=== PATIENT | female | born 1970 | race Caucasian/White ===

== ENCOUNTER 2022-04-24 17:51 | Outpatient (REF) | payer BC, SELFPAY ==
[2022-04-24 18:43] LABS: Influenza A PCR NEGATIVE (Negative); Influenza B PCR NEGATIVE (Negative); Resp Syncy Virus RNA Qual PCR NEGATIVE (Negative); SARS COV2 PCR INHOUSE NEGATIVE (Negative)
== END 2022-04-24 17:52 | disposition home or self-care (01) ==
LOC: HO.LNP 17:51
PROVIDERS: Visit Provider Emergency Medicine
DX: Z20.822 Contact with and (suspected) exposure to COVID-19 (principal); R68.89 Other general symptoms and signs
CPT/HCPCS: 0241U

== ENCOUNTER 2022-09-18 09:55 | Outpatient (REF) | payer BC, SELFPAY ==
[2022-09-18 11:26] LABS: MANUAL DIFF FLAG NO
[2022-09-18 11:38] LABS: Basophils Percent Auto 0.6 % (0-2); Eosinophils Absolute Auto 0.1 X10*3/uL (0.0-0.4); Hemoglobin 14.9 g/dl (12.0-16.0); Imm Gran Abs Auto 0.01 X10*3/uL (0.00-0.03); Imm Gran Pct Auto 0.2 % (0.0-0.4); Lymphocytes Absolute Auto 2.8 X10*3/uL (1.2-4.9); Lymphocytes Percent Auto 54.7 % (20-40); Mean Corpuscular HGB Conc 32.4 g/dl (31.0-35.0); Mean Corpuscular Hemoglobin 31.7 pg (27.0-33.0); Mean Corpuscular Volume 97.9 fL (80.0-98.0); Mean Platelet Volume 11.1 fL (9.4-12.3); Monocytes Absolute Auto 0.3 X10*3/uL (0.1-1.2); Monocytes Percent Auto 6.1 % (2-11); Neutrophils Absolute Auto 1.8 x10*3/uL (2.0-8.3); Neutrophils Percent Auto 36.4 % (45-73); Platelet Count 214 X10*3/uL (160-400); Red Cell Distribution Width 12.7 % (11.0-16.0); White Blood Count 5.1 X10*3/uL (4.8-10.8)
[2022-09-18 12:24] LABS: Alanine Aminotransferase 107 U/L (0-31); Albumin Level 4.5 g/dL (3.5-5.0); Alkaline Phosphatase 104 U/L (39-117); Anion Gap 12 (12-20); Aspartate Amino Transferase 44 U/L (5-31); Bilirubin Total 0.6 mg/dL (0.0-1.0); Blood Urea Nitrogen 14 mg/dL (9-16); Calcium 9.6 mg/dL (8.4-10.2); Carbon Dioxide 26 mmol/L (22-29); Chloride 105 mmol/L (96-108); Cholesterol 244 mg/dL; Estimated Glomerular Filt Rate > 60; Glucose Fasting 110 mg/dL (60-99); HDL Cholesterol 27 mg/dL; LDL Cholesterol Calculated 181 mg/dl; Potassium 4.5 mmol/L (3.3-5.1); Sodium 138 mmol/L (135-145); TSH reflex Free T4 30.54 uIU/mL (0.32-4.0); Total Protein 7.8 g/dL (6.5-8.0); Triglycerides 181 mg/dL; Vitamin B12 351 pg/mL (200-900)
[2022-09-18 12:56] LABS: Free T4 (Free Thyroxine) 0.62 ng/dL (0.71-1.85)
[2022-09-24 16:43] LABS: Vitamin D 25-OH, D2 <4 ng/mL; Vitamin D 25-OH, D3 18 ng/mL; Vitamin D 25-OH, Total 18 ng/mL (30-100)
== END 2022-09-18 09:56 | disposition home or self-care (01) ==
LOC: HO.HMGCLDS 09:55
PROVIDERS: PCP Internal Medicine; Visit Provider Internal Medicine
DX: K51.90 Ulcerative colitis, unspecified, without complications (principal); R53.83 Other fatigue; R03.0 Elevated blood-pressure reading, without diagnosis of hypertension
CPT/HCPCS: 36415; 80053; 80061; 82306; 82607; 84439; 84443; 85025

== ENCOUNTER 2022-12-11 08:59 | Outpatient (REF) | payer BC, SELFPAY ==
[2022-12-13 05:39] LABS: HPV mRNA E6/E7 rflx Not Detected (Not Detected)
== END 2022-12-11 09:00 | disposition home or self-care (01) ==
LOC: HO.LNP 08:59
PROVIDERS: PCP Internal Medicine; Visit Provider Obstetrics & Gynecology
DX: Z01.419 Encounter for gynecological examination (general) (routine) without abnormal findings (principal)
CPT/HCPCS: 87624; 88142

== ENCOUNTER 2023-03-26 09:53 | Outpatient (AMB) | payer BC, SELFPAY ==
[2023-03-26 09:55] VITALS: BP 122/90; PULSE 77; O2SAT 98; BMI 22.0
--- NOTE | 2023-03-26 09:55 | MHC.PC.OV ---
Vital Signs 03/26/23 09:55 Height 5 ft 8 in Weight 144 lb 8 oz BMI 22.0 BP 122/90 H Blood Pressure Location Rt brachial Position Sitting Pulse 77 Pulse Source Pulse Oximeter Pulse Oximetry (%) 98 Oxygen Delivery Method Room Air Intake Visit Reasons: follow up Allergies clindamycin [CLINDAMYCIN] Allergy (Unknown, Verified 03/26/23 09:56) RASH fluconazole [From Diflucan] Allergy (Unknown, Verified 03/26/23 09:56) HIVES NSAIDS (Non-Steroidal Anti-Inflamma [NSAIDS] Allergy (Unknown, Verified 03/26/23 09:56) EDEMA sulfamethoxazole [From BACTRIM] Allergy (Unknown, Verified 03/26/23 09:56) ITCHINESS tramadol [Tramadol] Allergy (Unknown, Verified 03/26/23 09:56) HEART RACES trimethoprim [From BACTRIM] Allergy (Unknown, Verified 03/26/23 09:56) ITCHINESS Ansaid Allergy (Unknown, Uncoded 01/06/23 10:16) Diarrhea Clindamycin HCl Allergy (Unknown, Uncoded 01/06/23 10:16) Rash From Toradol Adverse Reaction (Unknown, Uncoded 01/06/23 10:16) SLOWS HEART From Vicodin Adverse Reaction (Unknown, Uncoded 01/06/23 10:16) NAUSEAU Medication List - Last Reconciled 03/26/23 by Naina Garcias MD atorvastatin 40 mg PO DAILY cetirizine 10 mg PO DAILY PRN 30 days mczdbhtf-dssdxhhysp-vnbx-hops 515 mg caps PO L.acidop,rishi,lac,rha-B.lac,joseph 625 mg (10 billion cell) (Advanced Probiotic) caps PO levothyroxine 100 mcg PO DAILY Tobacco use date assessed: 03/26/23 Dental Screening Dental Screen Date: 03/26/23 Did you have a dental visit in the last 12 months?: No Did you have a dental problem in the last 6 months where you did not have access to dental care?: No Was dental information given to patient?: No HPI follow up HPI Details Patient is a 52-year-old female who was last seen September of this year Patient is on atorvastatin 40 mg for high LDL she is due for labs, she is tolerating medication , no side effects. However she does have baseline elevation of LFT it is very important that patient do the labs as soon as possible When she was seen last in September I told her to return in 2 months for follow-up but patient did not. She works at night Allergies a stable with long-acting antihistamine Patient is taking levothyroxine 100 mcg for hypothyroidism. Smoking 6 cigarettes a day patient is trying to cut down. Patient is to return in 4 months labs are needed as soon as possible. [facility] Medical History REJI III (cervical intraepithelial neoplasia grade III) with severe dysplasia High cholesterol Hx of LEEP (loop electrosurgical excision procedure) of cervix complicating Hypothyroid Surgical History History of back surgery Hx of appendectomy Hx of section Hx of hernia repair Hx of tubal ligation Family History Maternal Aunt Breast cancer Father Prostate cancer Social History Housing: House Patient Tobacco Use Status: Current everyday Tobacco user Cigarettes Per Day: 7 e-Cigarette/Vaping Use: Never Used service: No Current occupational status: employed Cognitive needs: No Hearing needs: No Vision needs: No Female Reproductive History Menstrual Age of Menarche: 15 Questionnaire Thrive Questionnaire Date Thrive assessed: 08/30/22 AUDIT C Alcohol Use Questionnaire (AUDIT-C) 1. How often do you have a drink containing alcohol?: Never 3. How often do you have six or more drinks on one occasion?: Never Total Score: 0 Score Reviewed/Action Taken: Yes ILYA-7 AMB Questionnaire ILYA-7 Date ILYA - 7 assessed: 08/30/22 Source: Developed by Drs. Otilio Cohn, Noemi Perez, Tej Smith and colleagues, with an educational julissa from [employer]. Review of Systems Const Denies chills and Denies fever(s) ENT Denies epistaxis and Denies nasal discharge Card Denies chest pain Resp Denies chest congestion, Denies cough and Denies hemoptysis GI Denies diarrhea and Denies nausea Skin/Breast Denies rash Neuro Reports no additional complaints Psych Reports no additional complaints Endo Reports no additional complaints Physical exam (Primary Care) Vital Signs: Last Vital Signs Pulse 77 03/26/23 09:55 BP 122/90 H 03/26/23 09:55 Pulse Ox 98 03/26/23 09:55 Oxygen Delivery Method Room Air 03/26/23 09:55 BMI result Body Mass Index 22.0 Tobacco/Smoking Status: Tobacco use Status Tobacco use date assessed 03/26/23 03/26/23 09:57 Patient Tobacco Use Status Current everyday Tobacco 03/26/23 09:57 e-Cigarette/Vaping Use Never Used 03/26/23 09:57 Thrive Assessment: Date of Thrive Assessment Date Thrive assessed 08/30/22 03/26/23 09:57 Const General: cooperative, comfortable and no acute distress Orientation/consciousness: patient oriented x3 HENMT Head: Yes normocephalic Eyes General: appearance normal, both eyes and all related structures Neck Neck: Yes supple Resp Effort & Inspection: normal respiratory effort, no cough and no stridor Cardio Rhythm: regular rhythm Heart sounds: S1 normal heart sound present and S2 normal heart sound present Skin General skin exam: turgor normal Neuro General: patient oriented x3, tone normal and moves all extremities Extrem Right lower extremity: no edema Left lower extremity: no edema Assessment and Plan Assessment & Plan (1) Lipid disorder: Code(s): E78.9 - Disorder of lipoprotein metabolism, unspecified (2) Impaired fasting blood sugar: Code(s): R73.01 - Impaired fasting glucose (3) LFT elevation: Code(s): R79.89 - Other specified abnormal findings of blood chemistry (4) Other specified hypothyroidism: Code(s): E03.8 - Other specified hypothyroidism Plan Patient is a 52-year-old female who was last seen September of this year Patient is on atorvastatin 40 mg for high LDL she is due for labs, she is tolerating medication , no side effects. However she does have baseline elevation of LFT it is very important that patient do the labs as soon as possible When she was seen last in September I told her to return in 2 months for follow-up but patient did not. She works at night Allergies a stable with long-acting antihistamine Patient is taking levothyroxine 100 mcg for hypothyroidism. Smoking 6 cigarettes a day patient is trying to cut down. Impaired fasting sugar: Patient says that she has started eating healthy and is mind for of her diet now Patient is to return in 4 months labs are needed as soon as possible. Orders: Orders Comprehensive [place]. Panel Fast Today E03.8 - Other specified hypothyroidism, E78.9 - Disorder of lipoprotein metabolism, unspecified, R73.01 - Impaired fasting glucose, R79.89 - Other specified abnormal findings of blood chemistry Hemoglobin A1c Today E03.8 - Other specified hypothyroidism, E78.9 - Disorder of lipoprotein metabolism, unspecified, R73.01 - Impaired fasting glucose, R79.89 - Other specified abnormal findings of blood chemistry Lipid Panel Today E03.8 - Other specified hypothyroidism, E78.9 - Disorder of lipoprotein metabolism, unspecified, R73.01 - Impaired fasting glucose, R79.89 - Other specified abnormal findings of blood chemistry TSH reflex Free T4 Today E03.8 - Other specified hypothyroidism, E78.9 - Disorder of lipoprotein metabolism, unspecified, R73.01 - Impaired fasting glucose, R79.89 - Other specified abnormal findings of blood chemistry Complete Blood Count Auto Diff Today E03.8 - Other specified hypothyroidism, E78.9 - Disorder of lipoprotein metabolism, unspecified, R73.01 - Impaired fasting glucose, R79.89 - Other specified abnormal findings of blood chemistry Medications: Discontinued benzonatate Discontinued Reason: Patient Completed Course 100 mg PO TID PRN 20 caps 0RF cough Coding Level of Care Code Est Pt Level 4 (89333) Diagnoses Lipid disorder E78.9 Impaired fasting blood sugar R73.01 LFT elevation R79.89 Other specified hypothyroidism E03.8
== END 2023-03-26 10:59 | disposition home or self-care (01) ==
PROVIDERS: PCP Internal Medicine; Visit Provider Internal Medicine
DX: E78.9 Disorder of lipoprotein metabolism, unspecified (principal); R73.01 Impaired fasting glucose; R79.89 Other specified abnormal findings of blood chemistry; E03.8 Other specified hypothyroidism
CPT/HCPCS: 99214

== ENCOUNTER 2023-04-23 09:37 | Outpatient (REF) | payer BC, SELFPAY ==
[2023-04-23 11:49] LABS: MANUAL DIFF FLAG NO
[2023-04-23 11:53] LABS: Basophils Absolute Auto 0.1 X10*3/uL (0.0-0.2); Basophils Percent Auto 0.8 % (0-2); Eosinophils Absolute Auto 0.2 X10*3/uL (0.0-0.4); Eosinophils Percent Auto 2.7 % (0-4); Hematocrit 44.2 % (37.0-47.0); Hemoglobin 14.7 g/dl (12.0-16.0); Imm Gran Abs Auto 0.01 X10*3/uL (0.00-0.03); Imm Gran Pct Auto 0.2 % (0.0-0.4); Lymphocytes Absolute Auto 2.6 X10*3/uL (1.2-4.9); Lymphocytes Percent Auto 43.8 % (20-40); Mean Corpuscular HGB Conc 33.3 g/dl (31.0-35.0); Mean Corpuscular Hemoglobin 31.7 pg (27.0-33.0); Mean Corpuscular Volume 95.3 fL (80.0-98.0); Mean Platelet Volume 11.1 fL (9.4-12.3); Monocytes Absolute Auto 0.3 X10*3/uL (0.1-1.2); Monocytes Percent Auto 5.5 % (2-11); Neutrophils Absolute Auto 2.8 x10*3/uL (2.0-8.3); Platelet Count 235 X10*3/uL (160-400); Red Blood Count 4.64 X10*6/uL (4.20-5.50); Red Cell Distribution Width 12.5 % (11.0-16.0)
[2023-04-23 12:09] LABS: Estimated Average Glucose 103 mg/dL; Hemoglobin A1c % 5.2 % (<6.0)
[2023-04-23 12:47] LABS: Alanine Aminotransferase 33 U/L (0-31); Albumin Level 4.3 g/dL (3.5-5.0); Alkaline Phosphatase 75 U/L (39-117); Anion Gap 11 (12-20); Aspartate Amino Transferase 26 U/L (5-31); Bilirubin Total 0.5 mg/dL (0.0-1.0); Blood Urea Nitrogen 12 mg/dL (9-16); Calcium 9.9 mg/dL (8.4-10.2); Carbon Dioxide 28 mmol/L (22-29); Chloride 106 mmol/L (96-108); Cholesterol 189 mg/dL (<200); Estimated Glomerular Filt Rate > 60; Glucose Fasting 93 mg/dL (60-99); HDL Cholesterol 31 mg/dL (>40); LDL Cholesterol Calculated 102 mg/dL (<100); Potassium 4.5 mmol/L (3.3-5.1); Sodium 140 mmol/L (135-145); Total Protein 7.2 g/dL (6.5-8.0); Triglycerides 284 mg/dL (<150)
[2023-04-23 12:53] LABS: TSH reflex Free T4 4.63 uIU/mL (0.32-4.0)
[2023-04-23 13:36] LABS: Free T4 (Free Thyroxine) 1.01 ng/dL (0.71-1.85)
== END 2023-04-23 09:38 | disposition home or self-care (01) ==
LOC: HO.HMGCLDS 09:37
PROVIDERS: PCP Internal Medicine; Visit Provider Internal Medicine
DX: E03.8 Other specified hypothyroidism (principal); R73.01 Impaired fasting glucose; R79.89 Other specified abnormal findings of blood chemistry; E78.9 Disorder of lipoprotein metabolism, unspecified
CPT/HCPCS: 36415; 80053; 80061; 83036; 84439; 84443; 85025

== ENCOUNTER 2023-07-23 12:05 | Outpatient (AMB) | payer BC, SELFPAY ==
--- NOTE | 2023-07-23 12:08 | MHC.PC.OV ---
Vital Signs 07/23/23 12:09 Height 5 ft 8 in Weight 147 lb BMI 22.3 BP 128/86 Blood Pressure Location Lt brachial Position Sitting Pulse 79 Pulse Source Pulse Oximeter Pulse Oximetry (%) 95 Oxygen Delivery Method Room Air Intake Visit Reasons: 4M Follow up, rescheduled from 07/18 Allergies clindamycin [CLINDAMYCIN] Allergy (Unknown, Verified 07/23/23 12:09) RASH fluconazole [From Diflucan] Allergy (Unknown, Verified 07/23/23 12:09) HIVES NSAIDS (Non-Steroidal Anti-Inflamma [NSAIDS] Allergy (Unknown, Verified 07/23/23 12:09) EDEMA sulfamethoxazole [From BACTRIM] Allergy (Unknown, Verified 07/23/23 12:09) ITCHINESS tramadol [Tramadol] Allergy (Unknown, Verified 07/23/23 12:09) HEART RACES trimethoprim [From BACTRIM] Allergy (Unknown, Verified 07/23/23 12:09) ITCHINESS Ansaid Allergy (Unknown, Uncoded 01/06/23 10:16) Diarrhea Clindamycin HCl Allergy (Unknown, Uncoded 01/06/23 10:16) Rash From Toradol Adverse Reaction (Unknown, Uncoded 01/06/23 10:16) SLOWS HEART From Vicodin Adverse Reaction (Unknown, Uncoded 01/06/23 10:16) NAUSEAU Medication List - Last Reconciled 07/23/23 by Naina Garcias MD atorvastatin 40 mg PO DAILY cetirizine 10 mg PO DAILY PRN 30 days jbjoegvo-hmbeivptec-hcmp-hops 515 mg caps PO L.acidop,rishi,lac,rha-B.lac,joseph 625 mg (10 billion cell) (Advanced Probiotic) caps PO levothyroxine 125 mcg PO DAILY Tobacco use date assessed: 07/23/23 Dental Screening Dental Screen Date: 07/23/23 Did you have a dental visit in the last 12 months?: No Did you have a dental problem in the last 6 months where you did not have access to dental care?: No Was dental information given to patient?: Patient has dentist HPI 4M Follow up, rescheduled from 07/18 HPI Details Patient is a 52-year-old female came in for her regular follow-up appointment Patient is on atorvastatin 40 mg for high LDL she is due for labs, she is tolerating medication , no side effects. Slightly elevated 1 liver enzyme, we will continue to monitor Continued to have sinus congestion, she is taking Sudafed We talked about it it is not a good idea to take Sudafed for long-term decongestion Instead she should take Flonase nasal spray Patient is also on long-acting antihistamine Patient is taking levothyroxine 125 mcg for hypothyroidism. Due for TSH check Smoking 2 packs per week Impaired fasting sugar: Patient is eating healthy Follow-up 4 months [facility] Medical History REJI III (cervical intraepithelial neoplasia grade III) with severe dysplasia Hx of LEEP (loop electrosurgical excision procedure) of cervix complicating Hypothyroid High cholesterol Surgical History Hx of tubal ligation Hx of hernia repair History of back surgery Hx of appendectomy Hx of section Family History Maternal Aunt Breast cancer Father Prostate cancer Social History Housing: House Patient Tobacco Use Status: Current everyday Tobacco user Cigarettes Per Day: 2 e-Cigarette/Vaping Use: Never Used service: No Current occupational status: employed Cognitive needs: No Hearing needs: No Vision needs: No Female Reproductive History Menstrual Age of Menarche: 15 Questionnaire Thrive Questionnaire Date Thrive assessed: 08/30/22 AUDIT C Alcohol Use Questionnaire (AUDIT-C) 1. How often do you have a drink containing alcohol?: Never 3. How often do you have six or more drinks on one occasion?: Never Total Score: 0 Score Reviewed/Action Taken: Yes ILYA-7 AMB Questionnaire ILYA-7 Date ILYA - 7 assessed: 08/30/22 Source: Developed by Drs. Otilio Cohn, Noemi Perez, Tej Smith and colleagues, with an educational julissa from [employer]. Review of Systems Const Denies chills and Denies fever(s) ENT Denies epistaxis and Denies nasal discharge Card Denies chest pain Resp Denies chest congestion, Denies cough and Denies hemoptysis GI Denies diarrhea and Denies nausea Skin/Breast Denies rash Neuro Reports no additional complaints Psych Reports no additional complaints Endo Reports no additional complaints Physical exam (Primary Care) Vital Signs: Last Vital Signs Pulse 79 07/23/23 12:09 BP 128/86 07/23/23 12:09 Pulse Ox 95 07/23/23 12:09 Oxygen Delivery Method Room Air 07/23/23 12:09 BMI result Body Mass Index 22.3 Tobacco/Smoking Status: Tobacco use Status Tobacco use date assessed 07/23/23 07/23/23 12:11 Patient Tobacco Use Status Current everyday Tobacco 07/23/23 12:11 e-Cigarette/Vaping Use Never Used 07/23/23 12:11 Are you ready to quit: Yes Tobacco cessation counseling provided: Yes Items discussed: Other (Continue quitting number of cigarettes daily) Thrive Assessment: Date of Thrive Assessment Date Thrive assessed 08/30/22 07/23/23 12:11 Const General: cooperative, comfortable and no acute distress Orientation/consciousness: patient oriented x3 HENMT Head: Yes normocephalic Eyes General: appearance normal, both eyes and all related structures Neck Neck: Yes supple Resp Effort & Inspection: normal respiratory effort, no cough and no stridor Cardio Rhythm: regular rhythm Heart sounds: S1 normal heart sound present and S2 normal heart sound present Skin General skin exam: turgor normal Neuro General: patient oriented x3, tone normal and moves all extremities Extrem Right lower extremity: no edema Left lower extremity: no edema Assessment and Plan Assessment & Plan (1) Other specified hypothyroidism: Code(s): E03.8 - Other specified hypothyroidism (2) Lipid disorder: Code(s): E78.9 - Disorder of lipoprotein metabolism, unspecified (3) LFT elevation: Code(s): R79.89 - Other specified abnormal findings of blood chemistry (4) Impaired fasting blood sugar: Code(s): R73.01 - Impaired fasting glucose (5) Nicotine dependence: Code(s): F17.200 - Nicotine dependence, unspecified, uncomplicated Qualifiers: Nicotine product type: cigarettes Substance use status: uncomplicated Qualified Code(s): F17.210 - Nicotine dependence, cigarettes, uncomplicated Plan Patient is a 52-year-old female came in for her regular follow-up appointment Patient is on atorvastatin 40 mg for high LDL she is due for labs, she is tolerating medication , no side effects. Slightly elevated 1 liver enzyme, we will continue to monitor Continued to have sinus congestion, she is taking Sudafed We talked about it it is not a good idea to take Sudafed for long-term decongestion Instead she should take Flonase nasal spray Patient is also on long-acting antihistamine Patient is taking levothyroxine 125 mcg for hypothyroidism. Due for TSH check Smoking 2 packs per week Impaired fasting sugar: Patient is eating healthy Follow-up 4 months Orders: Orders Complete Blood Count Auto Diff Today E03.8 - Other specified hypothyroidism, E78.9 - Disorder of lipoprotein metabolism, unspecified, R73.01 - Impaired fasting glucose, R79.89 - Other specified abnormal findings of blood chemistry LDL Cholesterol Direct Today E03.8 - Other specified hypothyroidism, E78.9 - Disorder of lipoprotein metabolism, unspecified, R73.01 - Impaired fasting glucose, R79.89 - Other specified abnormal findings of blood chemistry TSH reflex Free T4 Today E03.8 - Other specified hypothyroidism, E78.9 - Disorder of lipoprotein metabolism, unspecified, R73.01 - Impaired fasting glucose, R79.89 - Other specified abnormal findings of blood chemistry Comprehensive Met. Panel Today E03.8 - Other specified hypothyroidism, E78.9 - Disorder of lipoprotein metabolism, unspecified, R73.01 - Impaired fasting glucose, R79.89 - Other specified abnormal findings of blood chemistry Medications: Refilled atorvastatin 40 mg PO DAILY 90 tabs 1RF levothyroxine 125 mcg PO DAILY 90 tabs 1RF cetirizine 10 mg PO DAILY PRN 30 tabs 1RF allergy symptoms 30 days Coding Level of Care Code Est Pt Level 4 (66010) Diagnoses Other specified hypothyroidism E03.8 Lipid disorder E78.9 LFT elevation R79.89 Impaired fasting blood sugar R73.01 Cigarette nicotine dependence without complication F17.210 Nicotine product type: cigarettes Substance use status: uncomplicated
[2023-07-23 12:09] VITALS: BP 128/86; PULSE 79; O2SAT 95; BMI 22.3
== END 2023-07-23 15:43 | disposition home or self-care (01) ==
PROVIDERS: PCP Internal Medicine; Visit Provider Internal Medicine
DX: E03.8 Other specified hypothyroidism (principal); E78.9 Disorder of lipoprotein metabolism, unspecified; R79.89 Other specified abnormal findings of blood chemistry; R73.01 Impaired fasting glucose; F17.210 Nicotine dependence, cigarettes, uncomplicated
CPT/HCPCS: 99214

== ENCOUNTER 2023-07-23 12:34 | Outpatient (REF) | payer BC, SELFPAY ==
[2023-07-23 16:09] LABS: MANUAL DIFF FLAG NO
[2023-07-23 16:22] LABS: Basophils Percent Auto 0.8 % (0-2); Eosinophils Absolute Auto 0.2 X10*3/uL (0.0-0.4); Eosinophils Percent Auto 3.6 % (0-4); Hematocrit 42.2 % (37.0-47.0); Imm Gran Abs Auto 0.01 X10*3/uL (0.00-0.03); Imm Gran Pct Auto 0.2 % (0.0-0.4); Lymphocytes Absolute Auto 2.3 X10*3/uL (1.2-4.9); Lymphocytes Percent Auto 44.8 % (20-40); Mean Corpuscular HGB Conc 33.2 g/dl (31.0-35.0); Mean Corpuscular Hemoglobin 31.2 pg (27.0-33.0); Mean Platelet Volume 11.3 fL (9.4-12.3); Monocytes Absolute Auto 0.3 X10*3/uL (0.1-1.2); Monocytes Percent Auto 5.8 % (2-11); Neutrophils Absolute Auto 2.3 x10*3/uL (2.0-8.3); Neutrophils Percent Auto 44.8 % (45-73); Platelet Count 227 X10*3/uL (160-400); Red Blood Count 4.49 X10*6/uL (4.20-5.50); Red Cell Distribution Width 11.9 % (11.0-16.0)
[2023-07-23 16:36] LABS: Alanine Aminotransferase 32 U/L (0-31); Albumin Level 4.6 g/dL (3.5-5.0); Alkaline Phosphatase 76 U/L (39-117); Anion Gap 11 (12-20); Aspartate Amino Transferase 22 U/L (5-31); Bilirubin Total 0.5 mg/dL (0.0-1.0); Blood Urea Nitrogen 16 mg/dL (9-16); Calcium 9.9 mg/dL (8.4-10.2); Carbon Dioxide 26 mmol/L (22-29); Chloride 105 mmol/L (96-108); Estimated Glomerular Filt Rate > 60; Glucose Random 102 mg/dL (60-115); Potassium 4.6 mmol/L (3.3-5.1); Sodium 137 mmol/L (135-145); Total Protein 8.1 g/dL (6.5-8.0)
[2023-07-23 16:54] LABS: TSH reflex Free T4 0.67 uIU/mL (0.32-4.0)
[2023-07-27 03:33] LABS: LDL Cholesterol Direct 69 mg/dL (<100)
== END 2023-07-23 12:35 | disposition home or self-care (01) ==
LOC: HO.HMGCLDS 12:34
PROVIDERS: PCP Internal Medicine; Visit Provider Internal Medicine
DX: R79.89 Other specified abnormal findings of blood chemistry (principal); E78.9 Disorder of lipoprotein metabolism, unspecified; R73.01 Impaired fasting glucose; E03.8 Other specified hypothyroidism
CPT/HCPCS: 36415; 80053; 83721; 84443; 85025

== ENCOUNTER 2024-01-03 11:43 | Outpatient (AMB) | payer BC, SELFPAY ==
[2024-01-03 14:18] VITALS: BP 102/76; PULSE 68; TEMP 36.6; O2SAT 99; BMI 21.7
--- NOTE | 2024-01-03 14:18 | MHC.OFFWIV ---
Intake Vital Signs 01/03/24 14:18 Height 5 ft 8 in Weight 143 lb BMI 21.7 BP 102/76 Blood Pressure Location Lt brachial Position Sitting Pulse 68 Pulse Source Pulse Oximeter Temp 97.9 F Temp Source Oral Pulse Oximetry (%) 99 Oxygen Delivery Method Room Air Intake Visit Reasons: EP severe abd/back mass seen coming out of vagina Intake Note: Pt is here today c/o severe lower back pain and abd pain Patient Tobacco Use Status: Current everyday Tobacco user Allergies clindamycin [CLINDAMYCIN] Allergy (Unknown, Verified 01/03/24 16:02) RASH fluconazole [From Diflucan] Allergy (Unknown, Verified 01/03/24 16:02) HIVES NSAIDS (Non-Steroidal Anti-Inflamma [NSAIDS] Allergy (Unknown, Verified 01/03/24 16:02) EDEMA sulfamethoxazole [From BACTRIM] Allergy (Unknown, Verified 01/03/24 16:02) ITCHINESS tramadol [Tramadol] Allergy (Unknown, Verified 01/03/24 16:02) HEART RACES trimethoprim [From BACTRIM] Allergy (Unknown, Verified 01/03/24 16:02) ITCHINESS Ansaid Allergy (Unknown, Uncoded 01/03/24 14:24) Diarrhea Clindamycin HCl Allergy (Unknown, Uncoded 01/03/24 14:24) Rash From Toradol Adverse Reaction (Unknown, Uncoded 01/03/24 14:24) SLOWS HEART From Vicodin Adverse Reaction (Unknown, Uncoded 01/03/24 14:24) NAUSEAU HPI EP severe abd/back mass seen coming out of vagina HPI Details Patient is a 53-year-old female who comes to the walk-in clinic complaining of severe lower abdominal and low back pain for the last week or so, that radiates down into her pelvis and vaginal area. 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 She reports that there was no one specific moment where she felt the pain worsening, however lifting has severely aggravated her symptoms. She does have a history of hernia repair, tubal ligation, spine surgery, and section, but reports no residual or recent issues prior to this past week, and no GI history reported. She had seen [facility] last year with no issues, coming up on her annual exam date next month. She reports no intercourse in the last 2 years, and no STD history. She has no vaginal discharge or bleeding. She reports associated anorexia as she feels to be in too much pain to eat well, and has difficulty sleeping due to the pain, especially last night as the pain severity has been escalating. She reports no fever or chills, weakness or dizziness, nausea vomiting or diarrhea, respiratory symptoms, dysuria or other urinary symptoms, myalgias or malaise or other significant associated symptoms. [facility] Medical History REJI III (cervical intraepithelial neoplasia grade III) with severe dysplasia Hx of LEEP (loop electrosurgical excision procedure) of cervix complicating Hypothyroid High cholesterol Surgical History Hx of tubal ligation Hx of hernia repair History of back surgery Hx of appendectomy Hx of section Family History Maternal Aunt Breast cancer Father Prostate cancer Social History Housing: House Patient Tobacco Use Status: Current everyday Tobacco user Cigarettes Per Day: 2 e-Cigarette/Vaping Use: Never Used Advance Directives: No Advance Directives Information Provided: Yes Do you have a plan to hurt others: No Plan service: No Current occupational status: employed Cognitive needs: No Hearing needs: No Vision needs: No Female Reproductive History Menstrual Age of Menarche: 15 Review of Systems Const All systems reviewed & are unremarkable except as noted in HPI and below Physical Exam Vital Signs: Last Vital Signs Temp 97.9 F 01/03/24 14:18 Pulse 68 01/03/24 14:18 BP 102/76 01/03/24 14:18 Pulse Ox 99 01/03/24 14:18 Oxygen Delivery Method Room Air 01/03/24 14:18 BMI result Body Mass Index 21.7 Results AMB Urinalysis, Automated UA Leukoctes 0 Zana/uL Last Edit by Kirsty Astudillo CMA on 01/03/24 14:47 UA Nitrite Negative Last Edit by Kirsty Astudillo CMA on 01/03/24 14:47 UA Urobilinogen 0.2 mg/dL Last Edit by Kirsty Astudillo CMA on 01/03/24 14:47 UA Protein 0 mg/dL Last Edit by Kirsty Astudillo CMA on 01/03/24 14:47 UA pH 6.0 Last Edit by Kirsty Astudillo CMA on 01/03/24 14:47 UA Blood 0 Erik/uL Last Edit by Kirsty Astudillo, DANIELA on 01/03/24 14:47 UA Specific [place] 1.010 Last Edit by Kirsty Astudillo, DANIELA on 01/03/24 14:47 UA Ketone Negative Last Edit by Kirsty Astudillo, DANIELA on 01/03/24 14:47 UA Bilirubin 0 mg/dL Last Edit by Kirsty Astudillo CMA on 01/03/24 14:47 UA Glucose 0 mg/dL Last Edit by Kirsty Astudillo CMA on 01/03/24 14:47 Results Reviewed Results Reviewed: Laboratory Last Values Urine pH (Auto) 6.0 01/03/24 14:29 Specific [place] (Auto) 1.010 01/03/24 14:29 Urine Protein (Auto) 0 mg/dL 01/03/24 14:29 Glucose (UA)(Auto) 0 mg/dL 01/03/24 14:29 Urine Ketones (Auto) Negative 01/03/24 14:29 Urine Blood (Auto) 0 Erik/uL 01/03/24 14:29 Urine Nitrite (Auto) Negative 01/03/24 14:29 Urine Bilirubin (Auto) 0 mg/dL 01/03/24 14:29 Urine Urobilinogen (Auto) 0.2 mg/dL 01/03/24 14:29 Leukocyte Esterase (Auto) 0 Zana/uL 01/03/24 14:29 Unremarkable urinalysis Assessment & Plan Assessment & Plan (1) Abdominal pain: Code(s): R10.9 - Unspecified abdominal pain Qualifiers: Abdominal location: lower abdomen, unspecified Qualified Code(s): R10.30 - Lower abdominal pain, unspecified Plan: Patient is 53-year-old female who comes to the walk-in clinic complaining of severe lower abdominal and back pain that radiates into her pelvis and vaginal area. On evaluation, patient was in moderate to severe apparent distress and was extremely restless, with frequent position changes. While her abdomen had generalized lower tenderness, and was soft and without rigidity or distention or guarding, she had a mildly gaping introitus, with her cervix visible just past the labia and she was exquisitely tender to the touch surrounding the cervix, which was not friable and did not have any lesions apparent. It was apparent that she had pelvic floor collapse, and acute pelvic organ prolapse. We discussed that I did not feel that I could adequately evaluate her at the emergency department, and that I could not manage her pain outpatient, and that she was possibly a candidate for a CT scan of the abdomen which could not be ordered through the walk-in. I told her that the safest option would be to go to the emergency department for further evaluation and management of her pain, and that if this was indeed a surgical issue, that they could determine that there. She was amenable to this, and expect was called in to [facility] per her request. Orders: Orders AMB Urinalysis Automated Today Z13.9 - Encounter for screening, unspecified Coding Level of Care Code Est Pt Level 4 (40826) Diagnoses Lower abdominal pain R10.30 Abdominal location: lower abdomen, unspecified
== END 2024-01-03 15:36 | disposition home or self-care (01) ==
PROVIDERS: PCP Internal Medicine; Visit Provider Physician Assistant Medical
DX: R10.30 Lower abdominal pain, unspecified (principal)
CPT/HCPCS: 81003; 99214

== ENCOUNTER 2024-01-03 15:54 | Emergency (ER) | payer BC, SELFPAY ==
--- NOTE | ~2024-01-03 | CT_ITS ---
EXAMINATION: CT ABDOMEN AND PELVIS WITH CONTRAST CLINICAL INFORMATION: Lower abdominal pain COMPARISON: CT abdomen and pelvis 01/29/2018. TECHNIQUE: Multidetector volumetric images were obtained from the superior aspect of the liver through the pubic symphysis following administration 85 mL of Omnipaque 350 intravenous contrast. Sagittal and coronal reformatted images were obtained on the technologist's workstation. Oral contrast: No This CT examination was performed using dose optimization techniques as appropriate, variously including the following: *Automated exposure control *Adjustment of mA and/or kV according to patient size (this includes techniques or standardized protocols for targeted exams where dose is matched to indication/reason for exam; i.e. extremities or head) *Use of iterative reconstruction technique DLP: 406 mGy-cm FINDINGS: LUNG BASES: Unremarkable. LIVER AND BILIARY TREE: Unremarkable. GALLBLADDER: Unremarkable. PANCREAS: Unremarkable. SPLEEN: Unremarkable. ADRENAL GLANDS: Unremarkable. KIDNEYS AND URETERS: Bilateral renal scattered subcentimeter hypoattenuating lesions, too small to characterize but statistically likely to represent benign cysts for which no follow-up imaging is recommended. No hydronephrosis. GASTROINTESTINAL TRACT: Tiny esophageal hiatal hernia. Mild scattered sigmoid predominant colonic diverticulosis without evidence of acute diverticulitis. Surgical clips along the right paracolic gutter, likely related to prior appendectomy. VASCULAR: Mild aortoiliac calcific atherosclerosis. LYMPH NODES: No lymphadenopathy. PERITONEUM: Unremarkable BLADDER: Unremarkable. PELVIC VISCERA: Unremarkable. ABDOMINAL AND PELVIC WALL: Fat-containing umbilical hernia, with hernia sac measuring 3.8 x 3.5 x 3.5 cm. Tiny fat-containing left inguinal hernia. OSSEOUS STRUCTURES: Unremarkable. CT/CT abdomen pelvis w IV con IMPRESSION: 1. No acute abnormality of the abdomen or pelvis or findings to explain lower abdominal pain. 2. Fat-containing umbilical and left inguinal hernias.
[2024-01-03 15:58] VITALS: BP 141/93; PULSE 95; RESP 20; TEMP 36.1; O2SAT 98; BMI 22.9
--- NOTE | 2024-01-03 16:14 | ED_ITS ---
HPI - Abdominal Pain General Chief Complaint: Abdominal Pain Stated Complaint: Abdominal pain Time Seen by Provider: 01/04/24 03:43 History of Present Illness ED Provider: REHMAN Related Data Home Medications ?Medication ?Instructions ?Recorded ?Confirmed L.acidop,casei,lactis,rham-B.lact,joseph cap PO 12/11/22 07/23/23 625 mg (10 billion cell) capsule (Advanced Probiotic) collagen-hyaluronic cap PO 12/11/22 07/23/23 loed-bhvzjzdykr-ylci extract 515 mg capsule Previous Rx's ?Medication ?Instructions ?Recorded atorvastatin 40 mg tablet 40 mg PO DAILY #90 tabs 07/23/23 levothyroxine 125 mcg tablet 125 mcg PO DAILY #90 tabs 07/23/23 cetirizine 10 mg tablet 10 mg PO DAILY PRN allergy 09/25/23 symptoms 30 days #30 tabs nitrofurantoin 100 mg PO BID 7 days #14 caps 01/04/24 monohydrate/macrocrystals 100 mg capsule (Macrobid) Allergies Allergy/AdvReac Type Severity Reaction Status Date / Time clindamycin [CLINDAMYCIN] Allergy Unknown RASH Verified 01/03/24 16:02 fluconazole [From Diflucan] Allergy Unknown HIVES Verified 01/03/24 16:02 NSAIDS (Non-Steroidal Allergy Unknown EDEMA Verified 01/03/24 16:02 Anti-Inflamma [NSAIDS] sulfamethoxazole Allergy Unknown ITCHINESS Verified 01/03/24 16:02 [From BACTRIM] tramadol [Tramadol] Allergy Unknown HEART RACES Verified 01/03/24 16:02 trimethoprim [From BACTRIM] Allergy Unknown ITCHINESS Verified 01/03/24 16:02 Ansaid Allergy Unknown Diarrhea Uncoded 01/03/24 14:24 Clindamycin HCl Allergy Unknown Rash Uncoded 01/03/24 14:24 From Toradol AdvReac Unknown SLOWS HEART Uncoded 01/03/24 14:24 From Vicodin AdvReac Unknown NAUSEAU Uncoded 01/03/24 14:24 PMFSH Past Medical History Medical History REJI III (cervical intraepithelial neoplasia grade III) with severe dysplasia Hx of LEEP (loop electrosurgical excision procedure) of cervix complicating Hypothyroid High cholesterol Surgical History Hx of tubal ligation Hx of hernia repair History of back surgery Hx of appendectomy Hx of section Family History Family History Maternal Aunt Breast cancer Father Prostate cancer Social History Social History Housing: House Patient Tobacco Use Status: Current everyday Tobacco user Cigarettes Per Day: 2 e-Cigarette/Vaping Use: Never Used Advance Directives: No Advance Directives Information Provided: Yes Do you have a plan to hurt others: No Plan service: No Current occupational status: employed Cognitive needs: No Hearing needs: No Vision needs: No Physical Exam ED Vital Signs: Vital Signs - 24 hr 01/04/24 07:59 Temperature 97.6 F Pulse Rate 67 Respiratory Rate 18 Blood Pressure 121/76 Pulse Oximetry 97 Oxygen Delivery Method Room Air BMI result Body Mass Index 22.9 Course Course Course Narrative: This is a rapid medical exam. Deferred additional HPI, ROS, PE to primary provider. 53 yo female here with abdominal pain, back pain from UC, Will obtain labs, UA VSS -Donna Valdovinos APRN Reevaluation(s) Reevaluation #1: took over care at 722am - follow up CT scan - labs and CT scan reassuring, VS stable can be DC home no acute pathology Medical Decision Making Lab Data 01/03/24 16:31 01/03/24 16:31 Labs: Lab Results 01/03/24 01/04/24 Range/Units 16:31 04:57 WBC 6.3 (4.8-10.8) X10*3/uL RBC 4.65 (4.20-5.50) X10*6/uL Hgb 14.2 (12.0-16.0) g/dl Hct 42.0 (37.0-47.0) % MCV 90.3 (80.0-98.0) fL MCH 30.5 (27.0-33.0) pg MCHC 33.8 (31.0-35.0) g/dl RDW 12.5 (11.0-16.0) % Plt Count 218 (160-400) X10*3/uL MPV 10.0 (9.4-12.3) fL Immature Gran % (Auto) 0.2 (0.0-0.4) % Neut % (Auto) 44.2 L (45-73) % Lymph % (Auto) 46.8 H (20-40) % [place] % (Auto) 6.1 (2-11) % Eos % (Auto) 2.2 (0-4) % Baso % (Auto) 0.5 (0-2) % Lymph # (Auto) 2.9 (1.2-4.9) X10*3/uL [place] # (Auto) 0.4 (0.1-1.2) X10*3/uL Eos # (Auto) 0.1 (0.0-0.4) X10*3/uL Baso # (Auto) 0.0 (0.0-0.2) X10*3/uL Abs Immat Gran (auto) 0.01 (0.00-0.03) X10*3/uL Absolute Neuts (auto) 2.8 (2.0-8.3) x10*3/uL Absolute Nucleated RBC 0.000 (0.0-0.012) X10*3/uL Nucleated RBC % (auto) 0.0 (0.0-0.2) /100WBC Sodium 139 (135-145) mmol/L Potassium 4.4 (3.3-5.1) mmol/L Chloride 105 (96-108) mmol/L Carbon Dioxide 24 (22-29) mmol/L Anion Gap 14 (12-20) BUN 16 (9-16) mg/dL Creatinine 0.78 (0.5-1.4) mg/dL Estim Creat Clear Calc 76.2 Estimated GFR > 60 Random Glucose 100 (60-115) mg/dL Calcium 9.7 (8.4-10.2) mg/dL Total Bilirubin 0.5 (0.0-1.0) mg/dL Direct Bilirubin 0.2 (0.0-0.5) mg/dL AST 21 (5-31) U/L ALT 31 (0-31) U/L Alkaline Phosphatase 84 (39-117) U/L Total Protein 8.2 H (6.5-8.0) g/dL Albumin 4.7 (3.5-5.0) g/dL Urine Color Yellow Urine Appearance Clear Urine pH 6.0 (5.0-9.0) Ur Specific [place] 1.015 (1.005-1.025) Urine Protein Negative (Neg-Trace) mg/dL Urine Glucose (UA) Negative (Negative) mg/dL Urine Ketones Negative (Negative) mg/dL Urine Blood Negative (Negative) Urine Nitrite Negative (Negative) Ur Leukocyte Esterase Small (1+) H (Negative) Urine RBC 0-2 (0-2) /HPF Urine WBC 6-10 H (0-5) /HPF Ur Squamous Epith Cells 0-2 (0-2) /HPF Urine Bacteria None Seen (None Seen) Hyaline Casts 0-2 (0-2) /LPF Medications Administered Discontinued Medications Generic Name Dose Route Start Last Admin Trade Name Freq PRN Reason Stop Dose Admin Iohexol 85 ml 01/04/24 06:30 01/04/24 06:30 Iohexol 350 Mg/Ml 100 Ml Infus..Btl IV 01/04/24 06:31 85 ml ONCE ONE Administration Discharge Plan Discharge Clinical Impression: Abdominal pain, Cystitis Patient Disposition: Home, Self-Care Instructions: Urinary Tract Infection in Women (ED), Abdominal Pain (ED) Additional Instructions: labs reassuring mild infection in urine return for worsening symptoms or concerns CT scan normal follow up with your doctor and OBGYN CT/CT abdomen pelvis w IV con IMPRESSION: 1. No acute abnormality of the abdomen or pelvis or findings to explain lower abdominal pain. 2. Fat-containing umbilical and left inguinal hernias. Prescriptions: New nitrofurantoin monohyd/m-cryst [Macrobid] 100 mg capsule 100 mg PO BID 7 Days Qty: 14 0RF Rx Instructions: must administer with a meal/food No Action cetirizine 10 mg tablet 10 mg PO DAILY PRN (Reason: allergy symptoms) 30 Days Qty: 30 1RF atorvastatin 40 mg tablet 40 mg PO DAILY Qty: 90 1RF levothyroxine 125 mcg tablet 125 mcg PO DAILY Qty: 90 1RF Advanced Probiotic 625 mg (10 billion cell) capsule PO kezibulq-kypkzgfuxp-nrwx-hops 515 mg capsule PO Interventions: ED Discharge Assessment Last Done: 01/04/24 07:59 Discharge Date/Time: 01/04/24 08:01 Print Language: Indonesian
[2024-01-03 16:35] LABS: MANUAL DIFF FLAG NO
[2024-01-03 16:39] LABS: Basophils Percent Auto 0.5 % (0-2); Eosinophils Absolute Auto 0.1 X10*3/uL (0.0-0.4); Eosinophils Percent Auto 2.2 % (0-4); Hemoglobin 14.2 g/dl (12.0-16.0); Imm Gran Abs Auto 0.01 X10*3/uL (0.00-0.03); Imm Gran Pct Auto 0.2 % (0.0-0.4); Lymphocytes Absolute Auto 2.9 X10*3/uL (1.2-4.9); Lymphocytes Percent Auto 46.8 % (20-40); Mean Corpuscular HGB Conc 33.8 g/dl (31.0-35.0); Mean Corpuscular Hemoglobin 30.5 pg (27.0-33.0); Mean Corpuscular Volume 90.3 fL (80.0-98.0); Monocytes Absolute Auto 0.4 X10*3/uL (0.1-1.2); Monocytes Percent Auto 6.1 % (2-11); Neutrophils Absolute Auto 2.8 x10*3/uL (2.0-8.3); Neutrophils Percent Auto 44.2 % (45-73); Platelet Count 218 X10*3/uL (160-400); Red Blood Count 4.65 X10*6/uL (4.20-5.50); Red Cell Distribution Width 12.5 % (11.0-16.0); White Blood Count 6.3 X10*3/uL (4.8-10.8)
[2024-01-03 16:52] LABS: Alanine Aminotransferase 31 U/L (0-31); Albumin Level 4.7 g/dL (3.5-5.0); Alkaline Phosphatase 84 U/L (39-117); Anion Gap 14 (12-20); Aspartate Amino Transferase 21 U/L (5-31); Bilirubin Direct 0.2 mg/dL (0.0-0.5); Bilirubin Total 0.5 mg/dL (0.0-1.0); Blood Urea Nitrogen 16 mg/dL (9-16); Calcium 9.7 mg/dL (8.4-10.2); Carbon Dioxide 24 mmol/L (22-29); Chloride 105 mmol/L (96-108); Creatinine Clr Calc Pharmacy 76.2; Estimated Glomerular Filt Rate > 60; Glucose Random 100 mg/dL (60-115); Potassium 4.4 mmol/L (3.3-5.1); Sodium 139 mmol/L (135-145); Total Protein 8.2 g/dL (6.5-8.0)
[2024-01-04 04:03] VITALS: BP 118/80; PULSE 71; RESP 18; TEMP 36.5; O2SAT 98
--- NOTE | 2024-01-04 04:11 | ED_ITS ---
HPI - Abdominal Pain General Chief Complaint: Abdominal Pain Stated Complaint: Abdominal pain Time Seen by Provider: 01/04/24 03:43 History of Present Illness HPI narrative: Patient is a 53-year-old female with a question history of bladder prolapse/uterine prolapse. Sent in by urgent Care for further evaluation. Patient denies any fever chills. No chest pain or shortness breath no dizziness. Pain is over the lower abdomen. No change in bowel movement. No nausea no vomiting. No history of the same. No pain on urination. Feels like her stream is taking a while to develop. Related Data Home Medications ?Medication ?Instructions ?Recorded ?Confirmed L.acidop,casei,lactis,rham-B.lact,joseph cap PO 12/11/22 07/23/23 625 mg (10 billion cell) capsule (Advanced Probiotic) collagen-hyaluronic cap PO 12/11/22 07/23/23 spvw-jmfuwsldcu-ejah extract 515 mg capsule Previous Rx's ?Medication ?Instructions ?Recorded atorvastatin 40 mg tablet 40 mg PO DAILY #90 tabs 07/23/23 levothyroxine 125 mcg tablet 125 mcg PO DAILY #90 tabs 07/23/23 cetirizine 10 mg tablet 10 mg PO DAILY PRN allergy 09/25/23 symptoms 30 days #30 tabs Allergies Allergy/AdvReac Type Severity Reaction Status Date / Time clindamycin [CLINDAMYCIN] Allergy Unknown RASH Verified 01/03/24 16:02 fluconazole [From Diflucan] Allergy Unknown HIVES Verified 01/03/24 16:02 NSAIDS (Non-Steroidal Allergy Unknown EDEMA Verified 01/03/24 16:02 Anti-Inflamma [NSAIDS] sulfamethoxazole Allergy Unknown ITCHINESS Verified 01/03/24 16:02 [From BACTRIM] tramadol [Tramadol] Allergy Unknown HEART RACES Verified 01/03/24 16:02 trimethoprim [From BACTRIM] Allergy Unknown ITCHINESS Verified 01/03/24 16:02 Ansaid Allergy Unknown Diarrhea Uncoded 01/03/24 14:24 Clindamycin HCl Allergy Unknown Rash Uncoded 01/03/24 14:24 From Toradol AdvReac Unknown SLOWS HEART Uncoded 01/03/24 14:24 From Vicodin AdvReac Unknown NAUSEAU Uncoded 01/03/24 14:24 Review of Systems Review of Systems Positive lower abdominal pain Yes all other systems are reviewed and are negative PMFSH Past Medical History Medical History REJI III (cervical intraepithelial neoplasia grade III) with severe dysplasia Hx of LEEP (loop electrosurgical excision procedure) of cervix complicating Hypothyroid High cholesterol Surgical History Hx of tubal ligation Hx of hernia repair History of back surgery Hx of appendectomy Hx of section Family History Family History Maternal Aunt Breast cancer Father Prostate cancer Social History Social History Housing: House Patient Tobacco Use Status: Current everyday Tobacco user Cigarettes Per Day: 2 e-Cigarette/Vaping Use: Never Used Advance Directives: No Advance Directives Information Provided: Yes Do you have a plan to hurt others: No Plan service: No Current occupational status: employed Cognitive needs: No Hearing needs: No Vision needs: No Physical Exam ED Vital Signs: Vital Signs - 24 hr 01/03/24 15:58 01/04/24 04:03 01/04/24 05:32 Temperature 96.9 F 97.7 F 97.9 F Pulse Rate 95 71 67 Respiratory Rate 20 18 17 Blood Pressure 141/93 H 118/80 113/71 Pulse Oximetry 98 98 98 Oxygen Delivery Method Room Air Room Air Room Air BMI result Body Mass Index 22.9 Appearance: Alert. Oriented X3. No acute distress. Eyes: Pupils equal, round and reactive to light. ENT: Pharynx normal. Neck: Normal inspection. Neck supple. No lymph nodes noted. No crepitus CVS: Normal heart rate and rhythm. Pulses normal. Normal S1 and S2 Respiratory: No respiratory distress. Breath sounds normal. No Wheezing. No rales Abdomen: Soft and nontender. No rigidity. No distention. good BS x4 Skin: Skin warm and dry. Normal skin color. Normal skin turgor. Extremities: No lower extremity edema. Neurovascular intact to all extremities. No Lacerations. No Rash Neuro: Oriented X 3. No motor deficit. No sensory deficit. Moving all extermities. No slurred speech Medical Decision Making Medical Decision Making MDM Narrative: Patient presented with lower abdominal pain from the urgent care worry about bladder prolapse uterine prolapse. I did a pelvic exam with nurse Zack present. There is no external lesions. There has no vaginal discharge. Cervical os is closed. Nonfriable no adnexal tenderness elicited on palpation. Patient's postvoid bladder scan showed 100 cc of urine no gross urinary retention noted. White count is normal at 6.3. Patient's electrolytes unremarkable. Urine showed grossly no signs of infection. CT scan of the abdomen pelvis is currently pending. Patient in no acute distress. Differential Diagnosis Differential Diagnoses: The differential diagnosis associated with the presentation includes Diverticulitis, kidney stone, obstruction, prolapsed uterus Admission/Observation Consideration of admission/observation: Escalation of care including admission/observation considered Lab Data MDM Lab Attestation statement: I reviewed the patient's lab results. 01/03/24 16:31 01/03/24 16:31 Labs: Lab Results 01/03/24 01/04/24 Range/Units 16:31 04:57 WBC 6.3 (4.8-10.8) X10*3/uL RBC 4.65 (4.20-5.50) X10*6/uL Hgb 14.2 (12.0-16.0) g/dl Hct 42.0 (37.0-47.0) % MCV 90.3 (80.0-98.0) fL MCH 30.5 (27.0-33.0) pg MCHC 33.8 (31.0-35.0) g/dl RDW 12.5 (11.0-16.0) % Plt Count 218 (160-400) X10*3/uL MPV 10.0 (9.4-12.3) fL Immature Gran % (Auto) 0.2 (0.0-0.4) % Neut % (Auto) 44.2 L (45-73) % Lymph % (Auto) 46.8 H (20-40) % [place] % (Auto) 6.1 (2-11) % Eos % (Auto) 2.2 (0-4) % Baso % (Auto) 0.5 (0-2) % Lymph # (Auto) 2.9 (1.2-4.9) X10*3/uL [place] # (Auto) 0.4 (0.1-1.2) X10*3/uL Eos # (Auto) 0.1 (0.0-0.4) X10*3/uL Baso # (Auto) 0.0 (0.0-0.2) X10*3/uL Abs Immat Gran (auto) 0.01 (0.00-0.03) X10*3/uL Absolute Neuts (auto) 2.8 (2.0-8.3) x10*3/uL Absolute Nucleated RBC 0.000 (0.0-0.012) X10*3/uL Nucleated RBC % (auto) 0.0 (0.0-0.2) /100WBC Sodium 139 (135-145) mmol/L Potassium 4.4 (3.3-5.1) mmol/L Chloride 105 (96-108) mmol/L Carbon Dioxide 24 (22-29) mmol/L Anion Gap 14 (12-20) BUN 16 (9-16) mg/dL Creatinine 0.78 (0.5-1.4) mg/dL Estim Creat Clear Calc 76.2 Estimated GFR > 60 Random Glucose 100 (60-115) mg/dL Calcium 9.7 (8.4-10.2) mg/dL Total Bilirubin 0.5 (0.0-1.0) mg/dL Direct Bilirubin 0.2 (0.0-0.5) mg/dL AST 21 (5-31) U/L ALT 31 (0-31) U/L Alkaline Phosphatase 84 (39-117) U/L Total Protein 8.2 H (6.5-8.0) g/dL Albumin 4.7 (3.5-5.0) g/dL Urine Color Yellow Urine Appearance Clear Urine pH 6.0 (5.0-9.0) Ur Specific [place] 1.015 (1.005-1.025) Urine Protein Negative (Neg-Trace) mg/dL Urine Glucose (UA) Negative (Negative) mg/dL Urine Ketones Negative (Negative) mg/dL Urine Blood Negative (Negative) Urine Nitrite Negative (Negative) Ur Leukocyte Esterase Small (1+) H (Negative) Urine RBC 0-2 (0-2) /HPF Urine WBC 6-10 H (0-5) /HPF Ur Squamous Epith Cells 0-2 (0-2) /HPF Urine Bacteria None Seen (None Seen) Hyaline Casts 0-2 (0-2) /LPF External Record Review External record reviewed: Office record Patient office record reviewed Medications Administered Discontinued Medications Generic Name Dose Route Start Last Admin Trade Name Freq PRN Reason Stop Dose Admin Iohexol 85 ml 01/04/24 06:30 01/04/24 06:30 Iohexol 350 Mg/Ml 100 Ml Infus..Btl IV 01/04/24 06:31 85 ml ONCE ONE Administration Discharge Plan Discharge Clinical Impression: Abdominal pain Patient Disposition: Still a Patient Prescriptions: No Action cetirizine 10 mg tablet 10 mg PO DAILY PRN (Reason: allergy symptoms) 30 Days Qty: 30 1RF atorvastatin 40 mg tablet 40 mg PO DAILY Qty: 90 1RF levothyroxine 125 mcg tablet 125 mcg PO DAILY Qty: 90 1RF Advanced Probiotic 625 mg (10 billion cell) capsule PO jqkulzkz-esnoaorpnt-qeyh-hops 515 mg capsule PO Print Language: [place]
[2024-01-04 05:04] LABS: Appearance Urine Clear; Color Urine Yellow; Glucose Urine UA Negative (Negative); Leukocyte Esterase Urine Small (1+) (Negative); Nitrite Urine Negative (Negative); Specific Gravity - Urine 1.015 (1.005-1.025); UMIC TRIGGER UACC YES; Urine Blood Negative (Negative); Urine Ketones Negative (Negative); Urine Protein Negative (Neg-Trace)
[2024-01-04 05:09] LABS: Bacteria Urine None Seen (None Seen); Hyaline Casts Urine 0-2 /LPF (0-2); RBC Urine 0-2 /HPF (0-2); Squamous Epithelial Cell Urine 0-2 /HPF (0-2); UACC Culture Trigger YES
[2024-01-04 05:32] VITALS: BP 113/71; PULSE 67; RESP 17; TEMP 36.6; O2SAT 98
[2024-01-04] MEDS: iohexoL 350 MG/ML 100 ML INFUS..BTL 85 ML IV (06:30)
[2024-01-04 07:59] VITALS: BP 121/76; PULSE 67; RESP 18; TEMP 36.4; O2SAT 97
== END 2024-01-04 08:01 | disposition home or self-care (01) ==
PROVIDERS: Nurse Practitioner Family; Emergency Provider Emergency Medicine Emergency Medical Services; PCP Internal Medicine
DX: N30.90 Cystitis, unspecified without hematuria (principal); R10.9 Unspecified abdominal pain; Z86.001 Personal history of in-situ neoplasm of cervix uteri; Z87.898 Personal history of other specified conditions
CPT/HCPCS: 36415; 51798; 74177; 80048; 80076; 81001; 85025; 87086; 99284; Q9967

== ENCOUNTER 2024-03-12 12:26 | Outpatient (AMB) | payer BC, SELFPAY ==
[2024-03-12 12:28] VITALS: BP 118/74; PULSE 85; O2SAT 96; BMI 23.3
--- NOTE | 2024-03-12 12:28 | A.OFFPC_ITS ---
Vital Signs 3 03/12/24 12:28 Height 5 ft 6 in Weight 144 lb 6 oz BMI 23.3 BP 118/74 Blood Pressure Location Rt brachial Position Sitting Pulse 85 Pulse Source Pulse Oximeter Pulse Oximetry (%) 96 Oxygen Delivery Method Room Air Intake Visit Reasons: Follow Up~ Allergies clindamycin [CLINDAMYCIN] Allergy (Unknown, Verified 03/12/24 12:28) RASH fluconazole [From Diflucan] Allergy (Unknown, Verified 03/12/24 12:28) HIVES NSAIDS (Non-Steroidal Anti-Inflamma [NSAIDS] Allergy (Unknown, Verified 03/12/24 12:28) EDEMA sulfamethoxazole [From BACTRIM] Allergy (Unknown, Verified 03/12/24 12:28) ITCHINESS tramadol [Tramadol] Allergy (Unknown, Verified 03/12/24 12:28) HEART RACES trimethoprim [From BACTRIM] Allergy (Unknown, Verified 03/12/24 12:28) ITCHINESS Ansaid Allergy (Unknown, Uncoded 01/03/24 14:24) Diarrhea Clindamycin HCl Allergy (Unknown, Uncoded 01/03/24 14:24) Rash From Toradol Adverse Reaction (Unknown, Uncoded 01/03/24 14:24) SLOWS HEART From Vicodin Adverse Reaction (Unknown, Uncoded 01/03/24 14:24) NAUSEAU Medication List - Last Reconciled 03/12/24 by Naina Garcias MD atorvastatin 40 mg PO DAILY cetirizine 10 mg PO DAILY PRN 30 days vknftggf-orxxsupeow-ezle-hops 515 mg caps PO L.acidop,rishi,lac,rha-B.lac,joseph 625 mg (10 billion cell) (Advanced Probiotic) caps PO levothyroxine 125 mcg PO DAILY Tobacco use date assessed: 03/12/24 Dental Screening Dental Screen Date: 03/12/24 Did you have a dental visit in the last 12 months?: Yes Did you have a dental problem in the last 6 months where you did not have access to dental care?: No Was dental information given to patient?: Patient has dentist HPI Follow Up~ 2 HPI0 Details Patient is a 53-year-old female came in today to be evaluated for mid back pain Patient was on vacation in [place] and did lot of walking and went to a water park and did lot of activities She has return after 10 days of vacation this past Friday and since then she is having mid back pain Patient says that she tried taking ibuprofen [id number] which has caused diarrhea And Tylenol is not helping I have ordered x-ray of her thoracic spine 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 [facility] Medical History REJI III (cervical intraepithelial neoplasia grade III) with severe dysplasia Hx of LEEP (loop electrosurgical excision procedure) of cervix complicating Hypothyroid High cholesterol Surgical History Hx of tubal ligation Hx of hernia repair History of back surgery Hx of appendectomy Hx of section Family History Maternal Aunt Breast cancer Father Prostate cancer Social History Housing: House Patient Tobacco Use Status: Current everyday Tobacco user Cigarettes Per Day: 2 e-Cigarette/Vaping Use: Never Used service: No Current occupational status: employed Cognitive needs: No Hearing needs: No Vision needs: No Female Reproductive History Menstrual Age of Menarche: 15 Questionnaire PHQ-9 Over the last 2 weeks, how often have you been bothered by any of the following problems? 1. Little interest or pleasure in doing things: nearly every day 2. Feeling down, depressed, or hopeless: several days 3. Trouble falling or staying asleep, or sleeping too much: nearly every day 4. Feeling tired or having little energy: several days 5. Poor appetite or overeating: not at all 6. Feeling bad about yourself - or that you are a failure or have let yourself or your family down: not at all 7. Trouble concentrating on things, such as reading the newspaper or watching television: nearly every day 8. Moving or speaking so slowly that other people could have noticed. Or the opposite - being so fidgety or restless that you have been moving around a lot more than usual: nearly every day 9. Thoughts that you would be better off or of hurting yourself in some way: not at all Total score: 14 Depression Screening Interpretation: Positive Depression Screening Follow-up: Existing condition and In treatment Depression Screening Done: Yes 80079 - PHQ-9 Billing: Yes Source: Developed by Drs. Otilio Cohn, Noemi Perez, Tej Smith and colleagues, with an educational julissa from [employer]. Thrive Questionnaire Date Thrive assessed: 03/12/24 I am a: Patient What is your living situation today?: I have a steady place to live Within the past 12 months, did the food you bought not last and you didn't have the money to get more?: Often true Within the past 12 months, did you worry whether your food would run out before you got money to buy more?: Often true Do you have trouble paying for medicines?: No Do you have trouble getting transportation to medical appointments?: No Do you have trouble paying your heating and electricity bill?: Yes Do you have trouble taking care of your child, family member or friend?: No Do you have trouble with day-to-day activities such as bathing, preparing meals, shopping, managing finances, etc.?: No Are you currently unemployed and looking for a job?: No Are you interested in more education?: No Please select the resources that you would like help with: Housing/Residential, Food and Utilities Currently or been in a relationship where the following occur: No concerns reported THRIVE Score: 3 AUDIT C Alcohol Use Questionnaire (AUDIT-C) 1. How often do you have a drink containing alcohol?: Never 3. How often do you have six or more drinks on one occasion?: Never Total Score: 0 Score Reviewed/Action Taken: Yes ILYA-7 AMB Questionnaire ILYA-7 Date ILYA - 7 assessed: 03/12/24 Feeling nervous, anxious, or on edge: 3 = Nearly every day Not being able to stop or control worryin = Nearly every day Worrying too much about different things: 3 = Nearly every day Trouble relaxin = Nearly every day Being so restless that it is hard to sit still: 3 = Nearly every day Becoming easily annoyed or irritable: 3 = Nearly every day Feeling afraid as if something awful might happen: 0 = Not at all Total ILYA-7 score (0-4 normal; 5-9 mild; 10-14 moderate; 15-21 severe): 18 Source: Developed by Drs. Otilio Cohn, Noemi Perez, Tej Smith and colleagues, with an educational jluissa from [employer]. ILYA-7 Assessment Billing ILYA-7 Assessment Tool: ILYA-7 Assessment 87189 Review of Systems Const Denies chills and Denies fever(s) ENT Denies epistaxis and Denies nasal discharge Card Denies chest pain Resp Denies chest congestion, Denies cough and Denies hemoptysis GI Denies diarrhea and Denies nausea Skin/Breast Denies rash Neuro Reports no additional complaints Psych Reports no additional complaints Endo Reports no additional complaints Physical exam (Primary Care) Vital Signs: Last Vital Signs Pulse 85 03/12/24 12:28 BP 118/74 03/12/24 12:28 Pulse Ox 96 03/12/24 12:28 Oxygen Delivery Method Room Air 03/12/24 12:28 BMI result Body Mass Index 23.3 Tobacco/Smoking Status: Tobacco use Status Tobacco use date assessed 03/12/24 03/12/24 12:30 Patient Tobacco Use Status Current everyday Tobacco 03/12/24 12:30 e-Cigarette/Vaping Use Never Used 03/12/24 12:30 PHQ-9: PHQ-9 Score PHQ-9: Total score 14 03/12/24 12:30 Depression Screening Interpretation: Positive Depression Screening Follow-up: Existing condition and In treatment Thrive Assessment: Date of Thrive Assessment Date Thrive assessed 03/12/24 03/12/24 12:30 Currently or been in a relationship where the following occur: No concerns reported Const General: cooperative, comfortable and no acute distress Orientation/consciousness: patient oriented x3 HENMT Head: Yes normocephalic Eyes General: appearance normal, both eyes and all related structures Neck Neck: Yes supple Resp Effort & Inspection: normal respiratory effort, no cough and no stridor Cardio Rhythm: regular rhythm Heart sounds: S1 normal heart sound present and S2 normal heart sound present Back/Spine/Pelvis Back/spine/pelvis image: 2 1. Site of pain with percussion Skin General skin exam: turgor normal Neuro General: patient oriented x3, tone normal and moves all extremities Extrem Right lower extremity: no edema Left lower extremity: no edema Assessment and Plan Assessment & Plan (1) Thoracic back pain: Code(s): M54.6 - Pain in thoracic spine Qualifiers: Chronicity: acute Back pain laterality: midline Qualified Code(s): M 54.6 - Pain in thoracic spine Plan Patient is a 53-year-old female came in today to be evaluated for mid back pain Patient was on vacation in [place] and did lot of walking and went to a water park and did lot of activities She has return after 10 days of vacation this past Friday and since then she is having mid back pain Patient says that she tried taking ibuprofen vvlr-hya-lhcnboy which has caused diarrhea And Tylenol is not helping I have ordered x-ray of her thoracic spine 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 There is no rash on examination Orders: Orders 2 XR thoracic spine 2V Today M54.6 - Pain in thoracic spine Medications: New 2 baclofen 20 mg PO BEDTIME 10 tabs 0RF tramadol 50 mg PO BID PRN 14 tabs 0RF pain 7 days Refilled 2 atorvastatin 40 mg PO DAILY 90 tabs 1RF Coding Level of Care Code Est Pt Level 4 (33464) Diagnoses Acute midline thoracic back pain M54.6 Chronicity: acute Back pain laterality: midline Additional Codes ILYA-7 Assessment Billing - ILYA-7 Assessment Tool: ILYA-7 Assessment 29802 ([id number])
== END 2024-03-12 17:43 | disposition home or self-care (01) ==
PROVIDERS: PCP Internal Medicine; Visit Provider Internal Medicine
DX: M54.6 Pain in thoracic spine (principal)
CPT/HCPCS: 99214

== ENCOUNTER 2024-03-12 12:54 | Outpatient (REF) | payer BC, SELFPAY ==
--- NOTE | ~2024-03-12 | XR_ITS ---
EXAMINATION: XR THORACOLUMBAR SPINE CLINICAL INFORMATION: Pain in thoracic spine. COMPARISON: Chest x-ray January 2017. TECHNIQUE: AP and lateral views of the dorsal spine. FINDINGS: There is a stable but increased kyphosis of the upper dorsal spine. The vertebral alignment is otherwise normal. Minimal multilevel spondylosis of the dorsal spine manifested by small endplate osteophytes anteriorly without significant disc space narrowing. Surrounding bone and soft tissues are unremarkable. XR/XR thoracic spine 2V IMPRESSION: 1. Stable increased kyphosis of the upper dorsal spine. 2. No acute abnormality. Minimal spondylosis.
== END 2024-03-12 12:55 | disposition home or self-care (01) ==
LOC: HO.HMGCX 12:54
PROVIDERS: PCP Internal Medicine; Visit Provider Internal Medicine
DX: M54.6 Pain in thoracic spine (principal)
CPT/HCPCS: 72070

== ENCOUNTER 2024-03-18 08:29 | Outpatient (AMB) | payer BC, SELFPAY ==
--- NOTE | 2024-03-18 10:07 | MHC.PC.OV ---
Intake Visit Reasons: followup-Android [phone] Allergies clindamycin [CLINDAMYCIN] Allergy (Unknown, Verified 03/12/24 12:28) RASH fluconazole [From Diflucan] Allergy (Unknown, Verified 03/12/24 12:28) HIVES NSAIDS (Non-Steroidal Anti-Inflamma [NSAIDS] Allergy (Unknown, Verified 03/12/24 12:28) EDEMA sulfamethoxazole [From BACTRIM] Allergy (Unknown, Verified 03/12/24 12:28) ITCHINESS tramadol [Tramadol] Allergy (Unknown, Verified 03/12/24 12:28) HEART RACES trimethoprim [From BACTRIM] Allergy (Unknown, Verified 03/12/24 12:28) ITCHINESS Ansaid Allergy (Unknown, Uncoded 01/03/24 14:24) Diarrhea Clindamycin HCl Allergy (Unknown, Uncoded 01/03/24 14:24) Rash From Toradol Adverse Reaction (Unknown, Uncoded 01/03/24 14:24) SLOWS HEART From Vicodin Adverse Reaction (Unknown, Uncoded 01/03/24 14:24) NAUSEAU Medication List - Last Reconciled 03/18/24 by Naina Garcias MD atorvastatin 40 mg PO DAILY baclofen 20 mg PO BEDTIME cetirizine 10 mg PO DAILY PRN 30 days ozngeykg-ixflelbvvw-xtwa-hops 515 mg caps PO L.acidop,rishi,lac,rha-B.lac,joseph 625 mg (10 billion cell) (Advanced Probiotic) caps PO levothyroxine 125 mcg PO DAILY Tobacco use date assessed: 03/12/24 Dental Screening Dental Screen Date: 03/12/24 HPI followup-Android [phone] HPI Details for detail , see my previous note Patient is feeling much better taking Baclofen 20 mg at night she was also given tramadol for am she is to stop tramadol now and reduce baclofen to 10 mg at night she may take half in am as well one more week off from work as her work involve heavy lifting and frequent bending 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 when med wears off X ray report is still pending [facility] Medical History REJI III (cervical intraepithelial neoplasia grade III) with severe dysplasia Hx of LEEP (loop electrosurgical excision procedure) of cervix complicating Hypothyroid High cholesterol Surgical History Hx of tubal ligation Hx of hernia repair History of back surgery Hx of appendectomy Hx of section Family History Maternal Aunt Breast cancer Father Prostate cancer Social History Housing: House Patient Tobacco Use Status: Current everyday Tobacco user Cigarettes Per Day: 2 e-Cigarette/Vaping Use: Never Used service: No Current occupational status: employed Cognitive needs: No Hearing needs: No Vision needs: No Female Reproductive History Menstrual Age of Menarche: 15 Questionnaire PHQ-9 Over the last 2 weeks, how often have you been bothered by any of the following problems? 1. Little interest or pleasure in doing things: nearly every day 2. Feeling down, depressed, or hopeless: several days 3. Trouble falling or staying asleep, or sleeping too much: nearly every day 4. Feeling tired or having little energy: several days 5. Poor appetite or overeating: not at all 6. Feeling bad about yourself - or that you are a failure or have let yourself or your family down: not at all 7. Trouble concentrating on things, such as reading the newspaper or watching television: nearly every day 8. Moving or speaking so slowly that other people could have noticed. Or the opposite - being so fidgety or restless that you have been moving around a lot more than usual: nearly every day 9. Thoughts that you would be better off or of hurting yourself in some way: not at all Total score: 14 Source: Developed by Drs. Otilio Cohn, Noemi Perez, Tej Smith and colleagues, with an educational julissa from [employer]. Thrive Questionnaire Date Thrive assessed: 03/12/24 I am a: Patient What is your living situation today?: I have a steady place to live Within the past 12 months, did the food you bought not last and you didn't have the money to get more?: Often true Within the past 12 months, did you worry whether your food would run out before you got money to buy more?: Often true Do you have trouble paying for medicines?: No Do you have trouble getting transportation to medical appointments?: No Do you have trouble paying your heating and electricity bill?: Yes Do you have trouble taking care of your child, family member or friend?: No Do you have trouble with day-to-day activities such as bathing, preparing meals, shopping, managing finances, etc.?: No Are you currently unemployed and looking for a job?: No Are you interested in more education?: No Please select the resources that you would like help with: Housing/Longterm, Food and Utilities Currently or been in a relationship where the following occur: No concerns reported THRIVE Score: 3 AUDIT C Alcohol Use Questionnaire (AUDIT-C) 1. How often do you have a drink containing alcohol?: Never Total Score: 0 ILYA-7 AMB Questionnaire ILYA-7 Date ILYA - 7 assessed: 03/12/24 Feeling nervous, anxious, or on edge: 3 = Nearly every day Not being able to stop or control worryin = Nearly every day Worrying too much about different things: 3 = Nearly every day Trouble relaxin = Nearly every day Being so restless that it is hard to sit still: 3 = Nearly every day Becoming easily annoyed or irritable: 3 = Nearly every day Feeling afraid as if something awful might happen: 0 = Not at all Total ILYA-7 score (0-4 normal; 5-9 mild; 10-14 moderate; 15-21 severe): 18 Source: Developed by Drs. Otilio Cohn, Noemi Perez, Tej Smith and colleagues, with an educational julissa from [employer]. Review of Systems Const Denies chills and Denies fever(s) ENT Denies epistaxis and Denies nasal discharge Card Denies chest pain Resp Denies chest congestion, Denies cough and Denies hemoptysis GI Denies diarrhea and Denies nausea Skin/Breast Denies rash Neuro Reports no additional complaints Psych Reports no additional complaints Endo Reports no additional complaints Physical exam (Primary Care) Tobacco/Smoking Status: Tobacco use Status Tobacco use date assessed 03/12/24 03/18/24 10:08 Patient Tobacco Use Status Current everyday Tobacco 03/18/24 10:08 e-Cigarette/Vaping Use Never Used 03/18/24 10:08 PHQ-9: PHQ-9 Score PHQ-9: Total score 14 03/18/24 10:08 Thrive Assessment: Date of Thrive Assessment Date Thrive assessed 03/12/24 03/18/24 10:08 Currently or been in a relationship where the following occur: No concerns reported Telehealth Telehealth Telehealth Platform: [facility] Location of provider rendering services: practice address Location of patient: address on file Patient Identification confirmed using: Name, : Yes Telehealth method: voice only Patient verbally consented to treatment: Yes Patient verbally consented to billing insurance company: Yes Patient informed of any privacy concerns related to visit: Yes Minutes spent on Phone/Video with Pt.: 14 Assessment and Plan Assessment & Plan (1) Thoracic back pain: Code(s): M54.6 - Pain in thoracic spine Qualifiers: Chronicity: acute Back pain laterality: midline Qualified Code(s): M54.6 - Pain in thoracic spine Plan for detail , see my previous note Patient is feeling much better taking Baclofen 20 mg at night she was also given tramadol for am she is to stop tramadol now and reduce baclofen to 10 mg at night she may take half in am as well one more week off from work as her work involve heavy lifting and 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
== END 2024-03-18 11:16 | disposition home or self-care (01) ==
PROVIDERS: PCP Internal Medicine; Visit Provider Internal Medicine
DX: M54.6 Pain in thoracic spine (principal)
CPT/HCPCS: 99442

== ENCOUNTER 2024-03-25 08:02 | Outpatient (AMB) | payer BC, SELFPAY ==
--- NOTE | 2024-03-25 08:07 | A.OFFPC_ITS ---
Intake Visit Reasons: 1Wk F/u~ [phone] Allergies clindamycin [CLINDAMYCIN] Allergy (Unknown, Verified 03/25/24 08:08) RASH fluconazole [From Diflucan] Allergy (Unknown, Verified 03/25/24 08:08) HIVES NSAIDS (Non-Steroidal Anti-Inflamma [NSAIDS] Allergy (Unknown, Verified 03/25/24 08:08) EDEMA sulfamethoxazole [From BACTRIM] Allergy (Unknown, Verified 03/25/24 08:08) ITCHINESS tramadol [Tramadol] Allergy (Unknown, Verified 03/25/24 08:08) HEART RACES trimethoprim [From BACTRIM] Allergy (Unknown, Verified 03/25/24 08:08) ITCHINESS Ansaid Allergy (Unknown, Uncoded 01/03/24 14:24) Diarrhea Clindamycin HCl Allergy (Unknown, Uncoded 01/03/24 14:24) Rash From Toradol Adverse Reaction (Unknown, Uncoded 01/03/24 14:24) SLOWS HEART From Vicodin Adverse Reaction (Unknown, Uncoded 01/03/24 14:24) NAUSEAU Medication List - Last Reconciled 03/25/24 by Naina Garcias MD atorvastatin 40 mg PO DAILY baclofen 10 mg PO BID PRN 14 days cetirizine 10 mg PO DAILY PRN 30 days levothyroxine 125 mcg PO DAILY Tobacco use date assessed: 03/25/24 Dental Screening Dental Screen Date: 03/25/24 Did you have a dental visit in the last 12 months?: Yes Did you have a dental problem in the last 6 months where you did not have access to dental care?: No Was dental information given to patient?: Patient has dentist HPI 1Wk F/u~ [phone] HPI Details Patient continue to feel pain mid thoracic spine she has H/o scoliosis as well still unable to do work she says , her work place has sent FMLA papers she would like to come in to have those filled mean while i have sent more Baclofen and place referral for her to see Pain managment specialist at [facility] Medical History REJI III (cervical intraepithelial neoplasia grade III) with severe dysplasia Hx of LEEP (loop electrosurgical excision procedure) of cervix complicating Hypothyroid High cholesterol Surgical History Hx of tubal ligation Hx of hernia repair History of back surgery Hx of appendectomy Hx of section Family History Maternal Aunt Breast cancer Father Prostate cancer Social History Housing: House Patient Tobacco Use Status: Current everyday Tobacco user Cigarettes Per Day: 2 e-Cigarette/Vaping Use: Never Used service: No Current occupational status: employed Cognitive needs: No Hearing needs: No Vision needs: No Female Reproductive History Menstrual Age of Menarche: 15 Questionnaire PHQ-9 Over the last 2 weeks, how often have you been bothered by any of the following problems? 1. Little interest or pleasure in doing things: nearly every day 2. Feeling down, depressed, or hopeless: several days 3. Trouble falling or staying asleep, or sleeping too much: nearly every day 4. Feeling tired or having little energy: several days 5. Poor appetite or overeating: not at all 6. Feeling bad about yourself - or that you are a failure or have let yourself or your family down: not at all 7. Trouble concentrating on things, such as reading the newspaper or watching television: nearly every day 8. Moving or speaking so slowly that other people could have noticed. Or the opposite - being so fidgety or restless that you have been moving around a lot more than usual: nearly every day 9. Thoughts that you would be better off or of hurting yourself in some way: not at all Total score: 14 Depression Screening Interpretation: Positive Depression Screening Done: Yes 14911 - PHQ-9 Billing: Yes Source: Developed by Drs. Otilio Cohn, Noemi Perez, Tej Smith and colleagues, with an educational julissa from [employer]. Thrive Questionnaire Date Thrive assessed: 03/25/24 I am a: Patient What is your living situation today?: I have a steady place to live Within the past 12 months, did the food you bought not last and you didn't have the money to get more?: Often true Within the past 12 months, did you worry whether your food would run out before you got money to buy more?: Often true Do you have trouble paying for medicines?: No Do you have trouble getting transportation to medical appointments?: No Do you have trouble paying your heating and electricity bill?: Yes Do you have trouble taking care of your child, family member or friend?: No Do you have trouble with day-to-day activities such as bathing, preparing meals, shopping, managing finances, etc.?: No Are you currently unemployed and looking for a job?: No Are you interested in more education?: No Please select the resources that you would like help with: Housing/Residential, Food and Utilities Currently or been in a relationship where the following occur: No concerns reported THRIVE Score: 3 AUDIT C Alcohol Use Questionnaire (AUDIT-C) 1. How often do you have a drink containing alcohol?: Never 3. How often do you have six or more drinks on one occasion?: Never Total Score: 0 Score Reviewed/Action Taken: Yes ILYA-7 AMB Questionnaire ILYA-7 Date ILYA - 7 assessed: 03/25/24 Feeling nervous, anxious, or on edge: 3 = Nearly every day Not being able to stop or control worryin = Nearly every day Worrying too much about different things: 3 = Nearly every day Trouble relaxin = Nearly every day Being so restless that it is hard to sit still: 3 = Nearly every day Becoming easily annoyed or irritable: 3 = Nearly every day Feeling afraid as if something awful might happen: 0 = Not at all Total ILYA-7 score (0-4 normal; 5-9 mild; 10-14 moderate; 15-21 severe): 18 Source: Developed by Drs. Otilio Cohn, Noemi Perez, Tej Smith and colleagues, with an educational julissa from [employer]. ILYA-7 Assessment Billing ILYA-7 Assessment Tool: ILYA-7 Assessment 71683 Review of Systems Const Denies chills and Denies fever(s) ENT Denies epistaxis and Denies nasal discharge Card Denies chest pain Resp Denies chest congestion, Denies cough and Denies hemoptysis GI Denies diarrhea and Denies nausea Skin/Breast Denies rash Neuro Reports no additional complaints Psych Reports no additional complaints Endo Reports no additional complaints Physical exam (Primary Care) Tobacco/Smoking Status: Tobacco use Status Tobacco use date assessed 03/25/24 03/25/24 08:09 Patient Tobacco Use Status Current everyday Tobacco 03/25/24 08:09 e-Cigarette/Vaping Use Never Used 03/25/24 08:09 PHQ-9: PHQ-9 Score PHQ-9: Total score 14 03/25/24 08:44 Depression Screening Interpretation: Positive Thrive Assessment: Date of Thrive Assessment Date Thrive assessed 03/25/24 03/25/24 08:09 Currently or been in a relationship where the following occur: No concerns reported Telehealth Telehealth Telehealth Platform: [employer] Location of provider rendering services: practice address Location of patient: address on file Patient Identification confirmed using: Name, : Yes Telehealth method: voice only Patient verbally consented to treatment: Yes Patient verbally consented to billing insurance company: Yes Patient informed of any privacy concerns related to visit: Yes Minutes spent on Phone/Video with Pt.: 13 Assessment and Plan Assessment & Plan (1) Thoracic back pain: Code(s): M54.6 - Pain in thoracic spine Qualifiers: Back pain laterality: midline Chronicity: acute Qualified Code(s): M54.6 - Pain in thoracic spine Plan Patient continue to feel pain mid thoracic spine she has H/o scoliosis as well still unable to do work she says , her work place has sent FMLA papers she would like to come in to have those filled mean while i have sent more Baclofen and place referral for her to see Pain managment specialist at [facility] Orders: Referrals Pain Management Referral M54.6 - Pain in thoracic spine Medications: Changed From baclofen 10 mg PO BID 14 days PRN 28 tabs 0RF muscle spasm To baclofen 10 mg PO BID PRN 60 tabs 0RF muscle spasm 30 days Coding Level of Care Code Tele Est Pt Level 3 (78206) Diagnoses Acute midline thoracic back pain M54.6 Back pain laterality: midline Chronicity: acute Additional Codes ILYA-7 Assessment Billing - ILYA-7 Assessment Tool: ILYA-7 Assessment 94239 ([id number])
== END 2024-03-25 08:47 | disposition home or self-care (01) ==
LOC: HO.HMGC 08:02
PROVIDERS: PCP Internal Medicine; Visit Provider Internal Medicine
DX: M54.6 Pain in thoracic spine (principal)
CPT/HCPCS: 99442

== ENCOUNTER 2024-04-08 10:26 | Outpatient (AMB) | payer BC, SELFPAY ==
--- NOTE | 2024-04-08 10:31 | MHC.OFFVIS ---
Vital Signs 04/08/24 10:32 Height 5 ft 6 in Weight 145 lb BMI 23.4 BP 128/75 Blood Pressure Location Rt brachial Position Sitting Pulse 84 Pulse Source Pulse Oximeter Pulse Oximetry (%) 98 Oxygen Delivery Method Room Air Intake Visit Reasons: Pain in thoracic spine Allergies clindamycin [CLINDAMYCIN] Allergy (Unknown, Verified 04/08/24 10:35) RASH fluconazole [From Diflucan] Allergy (Unknown, Verified 04/08/24 10:35) HIVES NSAIDS (Non-Steroidal Anti-Inflamma [NSAIDS] Allergy (Unknown, Verified 04/08/24 10:35) EDEMA sulfamethoxazole [From BACTRIM] Allergy (Unknown, Verified 04/08/24 10:35) ITCHINESS tramadol [Tramadol] Allergy (Unknown, Verified 04/08/24 10:35) HEART RACES trimethoprim [From BACTRIM] Allergy (Unknown, Verified 04/08/24 10:35) ITCHINESS Ansaid Allergy (Unknown, Uncoded 04/08/24 10:35) Diarrhea Clindamycin HCl Allergy (Unknown, Uncoded 04/08/24 10:35) Rash From Toradol Adverse Reaction (Unknown, Uncoded 04/08/24 10:35) SLOWS HEART From Vicodin Adverse Reaction (Unknown, Uncoded 04/08/24 10:35) NAUSEAU Medication List - Last Reconciled 04/08/24 by Suzi Nava atorvastatin 40 mg PO DAILY baclofen 10 mg PO BID PRN 30 days cetirizine 10 mg PO DAILY PRN 30 days levothyroxine 125 mcg PO DAILY HPI Comments Details: Mary Ann is a very pleasant 53-year-old female who presents to the office today for evaluation management of her chronic thoracic back pain. Patient reports the pain started approximately 6 months ago, became significantly worse over the last 6 weeks. 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 Her job is not willing to provide accommodations therefore has been very painful throughout the workday. Patient had recent x-ray, results as per below Taking baclofen and ibuprofen as needed with minimal improvement. Tylenol has been no help. She finds some relief with heat and soaking in her hot tub. Prescribed tramadol from her primary care doctor which she has completed the course of. This did provide her some relief. She was also prescribed baclofen which provides her some relief but lasts only for approximately 4 hours. Midline thoracic vertebrae without radiation of the pain to either side. Worse with moving, twisting and repetitive pulling and pushing that is required for her job function. Patient has not attempted physical therapy, chiropractor, acupuncture, massage or injections. Pain today is rated as a 10/10, constant. In terms of muscle damage condition is described as burning, hot, sharp, shooting, stabbing, aching Pain is negatively impacting patient's sleep, normal work, ability to perform activities of daily living, normal function, general activity, mood and enjoyment of life. [facility] Medical History REJI III (cervical intraepithelial neoplasia grade III) with severe dysplasia Hx of LEEP (loop electrosurgical excision procedure) of cervix complicating Hypothyroid High cholesterol Surgical History Hx of tubal ligation Hx of hernia repair History of back surgery Hx of appendectomy Hx of section Family History Maternal Aunt Breast cancer Father Prostate cancer Social History Housing: House Patient Tobacco Use Status: Current everyday Tobacco user Cigarettes Per Day: 2 e-Cigarette/Vaping Use: Never Used service: No Current occupational status: employed Cognitive needs: No Hearing needs: No Vision needs: No Female Reproductive History Menstrual Age of Menarche: 15 Review of Systems Const All systems reviewed & are unremarkable except as noted in HPI and below Physical Exam Vital Signs: Last Vital Signs Pulse 84 04/08/24 10:32 BP 128/75 04/08/24 10:32 Pulse Ox 98 04/08/24 10:32 Oxygen Delivery Method Room Air 04/08/24 10:32 BMI result Body Mass Index 23.4 General: awake, alert, oriented. Answers questions appropriately. Fully engaged in examination. Skin: warm, dry, intact HEENT: Normocephalic. Hearing intact. Cardiac: External chest normal in appearance. Respiratory: No cough, audible wheezing or stridor. Abdomen: without gross distension. MS: No obvious swelling or deformities. Able to stand on bilateral tiptoes and bilateral heels.? Able to transition from sit to stand unassisted. Ambulates with bilaterally normal heel strike and toe off Tenderness to palpation midline thoracic vertebrae and paraspinal muscles Pain with forward flexion at 60 degrees, extension at 10 degrees Valsalva negative, no pain with deep inspiration Pain increased with bilateral rotation of the thorax Neurological: Oriented to person, place, time and situation. Thought process intact. No gait abnormalities appreciated. Psychiatric: Appropriate mood and affect. Good judgment and insight. Results Reviewed Results Reviewed: 03/12/24 XR/XR thoracic spine 2V FINDINGS: There is a stable but increased kyphosis of the upper dorsal spine. The vertebral alignment is otherwise normal. Minimal multilevel spondylosis of the dorsal spine manifested by small endplate osteophytes anteriorly without significant disc space narrowing. Surrounding bone and soft tissues are unremarkable. IMPRESSION: 1. Stable increased kyphosis of the upper dorsal spine. 2. No acute abnormality. Minimal spondylosis. Assessment & Plan Assessment & Plan (1) Thoracic back pain: Code(s): M54.6 - Pain in thoracic spine Category: Medical Qualifiers: Back pain laterality: midline Chronicity: acute Qualified Code(s): M54.6 - Pain in thoracic spine Plan Order placed for PT eval and treat Diclofenac 1% topical. Apply to most painful area up to 4 times daily as needed. Patient has documented allergy to NSAIDs, she states this is only due to her history of IBS. She is currently taking Motrin at home and tolerating well. Will try gabapentin 100 mg p.o. t.i.d.. Patient advised on cautions for use. Patient tolerates well but pain persists will increase to 300 mg 3 times daily. Discuss options for treatment including bilateral diagnostic thoracic medial branch blocks, if pain persists despite conservative treatment including topical anti-inflammatories and physical therapy will proceed with injections. All questions and concerns were answered, patient agrees with the plan. Follow up after physical therapy, sooner if needed Orders: Orders PT Evaluation and Treatment Today M54.6 - Pain in thoracic spine Medications: New diclofenac sodium 1% (Aleve (diclofenac)) apply to most painful area up to four times daily as needed 4 grams topical QID 100 grams 0RF gabapentin 100 mg PO TID 90 caps 1RF Coding Level of Care Code New Pt Level 4 (82193) Diagnoses Acute midline thoracic back pain M54.6 Back pain laterality: midline Chronicity: acute
[2024-04-08 10:32] VITALS: BP 128/75; PULSE 84; O2SAT 98; BMI 23.4
== END 2024-04-08 11:29 | disposition home or self-care (01) ==
PROVIDERS: PCP Internal Medicine; Visit Provider Registered Nurse Emergency
DX: M54.6 Pain in thoracic spine (principal)
CPT/HCPCS: 99204

== ENCOUNTER → 2024-04-08 10:26 | Outpatient (BNVA) | payer BC, SELFPAY | PROVIDERS: PCP Internal Medicine; Visit Provider Registered Nurse Emergency ==

== ENCOUNTER 2024-04-13 13:53 | Outpatient (AMB) | payer BC, SELFPAY ==
[2024-04-13 13:56] VITALS: BP 120/78; PULSE 88; O2SAT 97; BMI 23.6
--- NOTE | 2024-04-13 13:56 | A.OFFPC_ITS ---
Vital Signs 04/13/24 13:56 Height 5 ft 6 in Weight 146 lb 2 oz BMI 23.6 BP 120/78 Blood Pressure Location Rt brachial Position Sitting Pulse 88 Pulse Source Pulse Oximeter Pulse Oximetry (%) 97 Oxygen Delivery Method Room Air Intake Visit Reasons: FMLA Paperwork~ Allergies clindamycin [CLINDAMYCIN] Allergy (Unknown, Verified 04/13/24 13:56) RASH fluconazole [From Diflucan] Allergy (Unknown, Verified 04/13/24 13:56) HIVES NSAIDS (Non-Steroidal Anti-Inflamma [NSAIDS] Allergy (Unknown, Verified 04/13/24 13:56) EDEMA sulfamethoxazole [From BACTRIM] Allergy (Unknown, Verified 04/13/24 13:56) ITCHINESS tramadol [Tramadol] Allergy (Unknown, Verified 04/13/24 13:56) HEART RACES trimethoprim [From BACTRIM] Allergy (Unknown, Verified 04/13/24 13:56) ITCHINESS Ansaid Allergy (Unknown, Uncoded 04/08/24 10:35) Diarrhea Clindamycin HCl Allergy (Unknown, Uncoded 04/08/24 10:35) Rash From Toradol Adverse Reaction (Unknown, Uncoded 04/08/24 10:35) SLOWS HEART From Vicodin Adverse Reaction (Unknown, Uncoded 04/08/24 10:35) NAUSEAU Medication List - Last Reconciled 04/13/24 by Naina Garcias MD atorvastatin 40 mg PO DAILY baclofen 10 mg PO BID PRN 30 days diclofenac sodium 1% (Aleve (diclofenac)) 4 grams topical QID gabapentin 100 mg PO TID levothyroxine 125 mcg PO DAILY Tobacco use date assessed: 04/13/24 Dental Screening Dental Screen Date: 04/13/24 Did you have a dental visit in the last 12 months?: Yes Did you have a dental problem in the last 6 months where you did not have access to dental care?: No Was dental information given to patient?: Patient has dentist HPI FMLA Paperwork~ HPI Details Patient continued to have back pain which started March 12 after coming back from vacation During vacation patient had lot of physical activities 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 Patient is having to go through her days to back pain She is also seeing a paint crew supervisor and was started on gabapentin 100 mg which has helped somewhat She would like to have FMLA paperwork filled Patient would like to take a day off per week if her back flares up I have filled the paperwork starting from March 12 until March 12 next year Patient is also in a middle of looking for a new job [employer] Medical History REJI III (cervical intraepithelial neoplasia grade III) with severe dysplasia Hx of LEEP (loop electrosurgical excision procedure) of cervix complicating Hypothyroid High cholesterol Surgical History Hx of tubal ligation Hx of hernia repair History of back surgery Hx of appendectomy Hx of section Family History Maternal Aunt Breast cancer Father Prostate cancer Social History Housing: House Patient Tobacco Use Status: Current everyday Tobacco user Cigarettes Per Day: 2 e-Cigarette/Vaping Use: Never Used service: No Current occupational status: employed Cognitive needs: No Hearing needs: No Vision needs: No Female Reproductive History Menstrual Age of Menarche: 15 Questionnaire PHQ-9 Over the last 2 weeks, how often have you been bothered by any of the following problems? 1. Little interest or pleasure in doing things: nearly every day 2. Feeling down, depressed, or hopeless: several days 3. Trouble falling or staying asleep, or sleeping too much: nearly every day 4. Feeling tired or having little energy: several days 5. Poor appetite or overeating: not at all 6. Feeling bad about yourself - or that you are a failure or have let yourself o r your family down: not at all 7. Trouble concentrating on things, such as reading the newspaper or watching television: nearly every day 8. Moving or speaking so slowly that other people could have noticed. Or the opposite - being so fidgety or restless that you have been moving around a lot more than usual: nearly every day 9. Thoughts that you would be better off or of hurting yourself in some way: not at all Total score: 14 Depression Screening Interpretation: Positive Depression Screening Follow-up: Community Mental Health Worker F/U Depression Screening Done: Yes 36818 - PHQ-9 Billing: Yes Source: Developed by Drs. Otilio Cohn, Noemi Perez, Tej Smith and colleagues, with an educational julissa from [employer]. Thrive Questionnaire Date Thrive assessed: 03/25/24 I am a: Patient What is your living situation today?: I have a steady place to live Within the past 12 months, did the food you bought not last and you didn't have the money to get more?: Often true Within the past 12 months, did you worry whether your food would run out before you got money to buy more?: Often true Do you have trouble paying for medicines?: No Do you have trouble getting transportation to medical appointments?: No Do you have trouble paying your heating and electricity bill?: Yes Do you have trouble taking care of your child, family member or friend?: No Do you have trouble with day-to-day activities such as bathing, preparing meals, shopping, managing finances, etc.?: No Are you currently unemployed and looking for a job?: No Are you interested in more education?: No Please select the resources that you would like help with: Housing/Senior Care, Food and Utilities Currently or been in a relationship where the following occur: No concerns reported THRIVE Score: 3 AUDIT C Alcohol Use Questionnaire (AUDIT-C) 1. How often do you have a drink containing alcohol?: Never 2. How many drinks containing alcohol do you have on a typical day when you are drinking?: 1 or 2 3. How often do you have six or more drinks on one occasion?: Never Total Score: 0 ILYA-7 AMB Questionnaire ILYA-7 Date ILYA - 7 assessed: 03/25/24 Feeling nervous, anxious, or on edge: 3 = Nearly every day Not being able to stop or control worryin = Nearly every day Worrying too much about different things: 3 = Nearly every day Trouble relaxin = Nearly every day Being so restless that it is hard to sit still: 3 = Nearly every day Becoming easily annoyed or irritable: 3 = Nearly every day Feeling afraid as if something awful might happen: 0 = Not at all Total ILYA-7 score (0-4 normal; 5-9 mild; 10-14 moderate; 15-21 severe): 18 Source: Developed by Drs. Otilio Cohn, Noemi Perez, Tej Smith and colleagues, with an educational julissa from [employer]. Review of Systems Const Denies chills and Denies fever(s) ENT Denies epistaxis and Denies nasal discharge Card Denies chest pain Resp Denies chest congestion, Denies cough and Denies hemoptysis GI Denies diarrhea and Denies nausea Skin/Breast Denies rash Neuro Reports no additional complaints Psych Reports no additional complaints Endo Reports no additional complaints Physical exam (Primary Care) Vital Signs: Last Vital Signs Pulse 88 04/13/24 13:56 BP 120/78 04/13/24 13:56 Pulse Ox 97 04/13/24 13:56 Oxygen Delivery Method Room Air 04/13/24 13:56 BMI result Body Mass Index 23.6 Tobacco/Smoking Status: Tobacco use Status Tobacco use date assessed 04/13/24 04/13/24 13:57 Patient Tobacco Use Status Current everyday Tobacco 04/13/24 13:57 e-Cigarette/Vaping Use Never Used 04/13/24 13:57 PHQ-9: PHQ-9 Score PHQ-9: Total score 14 04/13/24 14:17 Depression Screening Interpretation: Positive Depression Screening Follow-up: Community Mental Health Worker F/U Thrive Assessment: Date of Thrive Assessment Date Thrive assessed 03/25/24 04/13/24 13:57 Currently or been in a relationship where the following occur: No concerns reported Const General: cooperative, comfortable and no acute distress Orientation/consciousness: patient oriented x3 HENMT Head: Yes normocephalic Eyes General: appearance normal, both eyes and all related structures Neck Neck: Yes supple Resp Effort & Inspection: normal respiratory effort, no cough and no stridor Cardio Rhythm: regular rhythm Heart sounds: S1 normal heart sound present and S2 normal heart sound present Skin General skin exam: turgor normal Neuro General: patient oriented x3, tone normal and moves all extremities Extrem Right lower extremity: no edema Left lower extremity: no edema Assessment and Plan Assessment & Plan (1) Thoracic back pain: Code(s): M54.6 - Pain in thoracic spine Qualifiers: Chronicity: acute Back pain laterality: midline Qualified Code(s): M54.6 - Pain in thoracic spine Plan Patient continued to have back pain which started March 12 after coming back from vacation During vacation patient had lot of physical activities 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
== END 2024-04-13 15:27 | disposition home or self-care (01) ==
PROVIDERS: PCP Internal Medicine; Visit Provider Internal Medicine
DX: M54.6 Pain in thoracic spine (principal)
CPT/HCPCS: 99213

== ENCOUNTER 2024-05-13 10:48 | Outpatient (RCR) | payer BC, SELFPAY ==
--- NOTE | 2024-05-14 14:36 | MHC.PT.EP ---
[facility] [place] [facility] [place] [facility] [place] Office [address] [phone] F: [phone] F: [phone] F: [phone] F: [phone] Physical Therapy Plan of Care Date of Evaluation: 05/13/24 Date of Surgery: Diagnosis: thoracic spine pain Assessment: Mary Ann is a pleasant 53 y.o. 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 Patient impairments include poor posture, pain in thoracic spine, limited ROM in thoracic spine, and weakness in scapular stabilizing musculature. Patient current functional limitations are working, prolonged sitting, clean/vacuum, getting up out of bed, lying supine, unable to lie on her stomach. Patient will benefit from skilled PT to address aforementioned impairments and functional limitations to meet established goals. Frequency and Duration: The patient will be seen 2x/week for 4 weeks Short Term Goals: 2 weeks Patient demonstrates consistency and independence with HEP to self manage symptoms. 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 Patient presents with increased middle trap strength 4/5 to be able to lie on her stomach to improve sleep. Treatment Plan: Modalities to reduce pain, spasms and effusion. Manual therapy to restore motion and function. Therapeutic exercise to improve strength and flexibility. Neuromuscular re-education for posture and balance. Therapeutic activities to return to functional activities of daily living. Electronically signed by: Derick Morfin, PT, DPT Please sign and return to therapist. Thank you for your referral.
--- NOTE | 2024-06-15 09:49 | MHC.PT.DC ---
[facility] [place] Office [place] Office [place] Office [address]ly [address] [phone] F: [phone] F: [phone] F: [phone] F: [phone] Physical Therapy Discharge Report Diagnosis: thoracic spine pain Date of Surgery: Date of Evaluation: 05/13/24 Date of Discharge: 06/15/24 Treatments to Date: 1 Cancellations to Date: 7 No Shows to Date: 1 Discharge Status: Visit Non-compliance Discharge Summary: Mary Ann did not attend any FUP visits after initial evaluation. Therefore she is discharged from PT at this time. Unable to determine effectiveness of PT interventions on pt condition. Electronically signed by: Derick Morfin, PT, DPT Please sign and return to therapist. Thank you for your referral.
== END 2024-06-15 09:49 | disposition home or self-care (01) ==
LOC: HO.PT 10:48
PROVIDERS: PCP Internal Medicine; Visit Provider Registered Nurse Emergency
DX: M54.6 Pain in thoracic spine (principal)
CPT/HCPCS: 97110; 97161

== ENCOUNTER 2024-05-20 08:48 | Outpatient (AMB) | payer BC, SELFPAY ==
--- NOTE | 2024-05-20 08:56 | MHC.PC.OV ---
Intake Visit Reasons: FMLA Paperwork~ [phone] Allergies clindamycin [CLINDAMYCIN] Allergy (Unknown, Verified 05/20/24 08:56) RASH fluconazole [From Diflucan] Allergy (Unknown, Verified 05/20/24 08:56) HIVES NSAIDS (Non-Steroidal Anti-Inflamma [NSAIDS] Allergy (Unknown, Verified 05/20/24 08:56) EDEMA sulfamethoxazole [From BACTRIM] Allergy (Unknown, Verified 05/20/24 08:56) ITCHINESS tramadol [Tramadol] Allergy (Unknown, Verified 05/20/24 08:56) HEART RACES trimethoprim [From BACTRIM] Allergy (Unknown, Verified 05/20/24 08:56) ITCHINESS Ansaid Allergy (Unknown, Uncoded 04/08/24 10:35) Diarrhea Clindamycin HCl Allergy (Unknown, Uncoded 04/08/24 10:35) Rash From Toradol Adverse Reaction (Unknown, Uncoded 04/08/24 10:35) SLOWS HEART From Vicodin Adverse Reaction (Unknown, Uncoded 04/08/24 10:35) NAUSEAU Tobacco use date assessed: 05/20/24 Dental Screening Dental Screen Date: 05/20/24 Did you have a dental visit in the last 12 months?: Yes Did you have a dental problem in the last 6 months where you did not have access to dental care?: No Was dental information given to patient?: Patient has dentist HPI FMLA Paperwork~ [phone] HPI Details This is a telemed visit to fill FMLA paper work due to Patient's back and mid back pain which got worse on 03/12/24, she was evaluated in clinic She has been taking a day off from work once a week she works about 8.5 hours a day she was given letter for Job accomodation she can sit for 5 min once every 30 min now and continue to work she is also going to pain managment and taking Gabapentine thru them baclofen is thru this office she will return for follow up in 3 M FMLA papers filled till 08/18/24 PENDING SALE TO [facility] Medical History REJI III (cervical intraepithelial neoplasia grade III) with severe dysplasia Hx of LEEP (loop electrosurgical excision procedure) of cervix complicating Hypothyroid High cholesterol Surgical History Hx of tubal ligation Hx of hernia repair History of back surgery Hx of appendectomy Hx of section Family History Maternal Aunt Breast cancer Father Prostate cancer Social History Housing: House Patient Tobacco Use Status: Current everyday Tobacco user Cigarettes Per Day: 2 e-Cigarette/Vaping Use: Never Used service: No Current occupational status: employed Cognitive needs: No Hearing needs: No Vision needs: No Female Reproductive History Menstrual Age of Menarche: 15 Questionnaire Thrive Questionnaire Date Thrive assessed: 05/20/24 I am a: Patient What is your living situation today?: I have a steady place to live Within the past 12 months, did the food you bought not last and you didn't have the money to get more?: Often true Within the past 12 months, did you worry whether your food would run out before you got money to buy more?: Often true Do you have trouble paying for medicines?: No Do you have trouble getting transportation to medical appointments?: No Do you have trouble paying your heating and electricity bill?: Yes Do you have trouble taking care of your child, family member or friend?: No Do you have trouble with day-to-day activities such as bathing, preparing meals, shopping, managing finances, etc.?: No Are you currently unemployed and looking for a job?: No Are you interested in more education?: No Currently or been in a relationship where the following occur: No concerns reported THRIVE Score: 3 AUDIT C Alcohol Use Questionnaire (AUDIT-C) 1. How often do you have a drink containing alcohol?: Never 2. How many drinks containing alcohol do you have on a typical day when you are drinking?: 1 or 2 3. How often do you have six or more drinks on one occasion?: Never Total Score: 0 Score Reviewed/Action Taken: Yes ILYA-7 AMB Questionnaire ILYA-7 Date ILYA - 7 assessed: 03/25/24 Source: Developed by Drs. Otilio Cohn, Noemi Perez, Tej Smith and colleagues, with an educational julissa from [employer]. Review of Systems Const Denies chills and Denies fever(s) ENT Denies epistaxis and Denies nasal discharge Card Denies chest pain Resp Denies chest congestion, Denies cough and Denies hemoptysis GI Denies diarrhea and Denies nausea Skin/Breast Denies rash Neuro Reports no additional complaints Psych Reports no additional complaints Endo Reports no additional complaints Physical exam (Primary Care) Tobacco/Smoking Status: Tobacco use Status Tobacco use date assessed 05/20/24 05/20/24 08:57 Patient Tobacco Use Status Current everyday Tobacco 05/20/24 08:57 e-Cigarette/Vaping Use Never Used 05/20/24 08:57 Thrive Assessment: Date of Thrive Assessment Date Thrive assessed 05/20/24 05/20/24 08:57 Currently or been in a relationship where the following occur: No concerns reported Telehealth Telehealth Telehealth Platform: [facility] Location of provider rendering services: practice address Location of patient: address on file Patient Identification confirmed using: Name, : Yes Telehealth method: voice only Patient verbally consented to treatment: Yes Patient verbally consented to billing insurance company: Yes Patient informed of any privacy concerns related to visit: Yes Minutes spent on Phone/Video with Pt.: 16 Coding Level of Care Code Tele Est Pt Level 3 (66530) Diagnoses Acute midline thoracic back pain M54.6 Chronicity: acute Back pain laterality: midline Assessment & Plan Assessment & Plan (1) Thoracic back pain: Code(s): M54.6 - Pain in thoracic spine Category: Medical Qualifiers: Chronicity: acute Back pain laterality: midline Qualified Code(s): M54.6 - Pain in thoracic spine Plan This is a telemed visit to fill FMLA paper work due to Patient's back and mid back pain which got worse on 03/12/24, she was evaluated in clinic She has been taking a day off from work once a week she works about 8.5 hours a day she was given letter for Job accomodation she can sit for 5 min once every 30 min now and continue to work she is also going to pain managment and taking Gabapentine thru them baclofen is thru this office she will return for follow up in 3 M FMLA papers filled till 08/18/24
== END 2024-05-20 11:41 | disposition home or self-care (01) ==
LOC: HO.HMCC 08:48
PROVIDERS: PCP Internal Medicine; Visit Provider Internal Medicine
DX: M54.6 Pain in thoracic spine (principal)

== ENCOUNTER → 2024-05-20 08:48 | Outpatient (BNVA) | payer BC, SELFPAY | PROVIDERS: PCP Internal Medicine; Visit Provider Internal Medicine ==

== ENCOUNTER 2024-07-23 14:07 | Outpatient (AMB) | payer BC, SELFPAY ==
[2024-07-23 14:08] VITALS: BMI 23.6
--- NOTE | 2024-07-23 14:08 | MHC.OFFVIS ---
Vital Signs 07/23/24 14:08 Height 5 ft 6 in Weight 146 lb BMI 23.6 Intake Visit Reasons: Discuss dose increase Allergies clindamycin [CLINDAMYCIN] Allergy (Unknown, Verified 05/20/24 08:56) RASH fluconazole [From Diflucan] Allergy (Unknown, Verified 05/20/24 08:56) HIVES NSAIDS (Non-Steroidal Anti-Inflamma [NSAIDS] Allergy (Unknown, Verified 05/20/24 08:56) EDEMA sulfamethoxazole [From BACTRIM] Allergy (Unknown, Verified 05/20/24 08:56) ITCHINESS tramadol [Tramadol] Allergy (Unknown, Verified 05/20/24 08:56) HEART RACES trimethoprim [From BACTRIM] Allergy (Unknown, Verified 05/20/24 08:56) ITCHINESS Ansaid Allergy (Unknown, Uncoded 04/08/24 10:35) Diarrhea Clindamycin HCl Allergy (Unknown, Uncoded 04/08/24 10:35) Rash From Toradol Adverse Reaction (Unknown, Uncoded 04/08/24 10:35) SLOWS HEART From Vicodin Adverse Reaction (Unknown, Uncoded 04/08/24 10:35) NAUSEAU HPI Comments Details: Telephone visit completed today for follow-up, medication management. Patient has been taking gabapentin 400 mg 3 times daily. She reports that initially this was helping her pain but over the last couple of weeks she has noticed the aches and pains have been worsening. Denies any untoward effects of the medication Denies changes in past medical history, allergies, daily medications. Denies any new injury, trauma, fall. Prior: Mary Ann is a very pleasant 53-year-old female who presents to the office today for evaluation management of her chronic thoracic back pain. Patient reports the pain started approximately 6 months ago, became significantly worse over the last 6 weeks. 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 Her job is not willing to provide accommodations therefore has been very painful throughout the workday. Patient had recent x-ray, results as per below Taking baclofen and ibuprofen as needed with minimal improvement. Tylenol has been no help. She finds some relief with heat and soaking in her hot tub. Prescribed tramadol from her primary care doctor which she has completed the course of. This did provide her some relief. She was also prescribed baclofen which provides her some relief but lasts only for approximately 4 hours. Midline thoracic vertebrae without radiation of the pain to either side. Worse with moving, twisting and repetitive pulling and pushing that is required for her job function. Patient has not attempted physical therapy, chiropractor, acupuncture, massage or injections. Pain today is rated as a 10/10, constant. In terms of muscle damage condition is described as burning, hot, sharp, shooting, stabbing, aching Pain is negatively impacting patient's sleep, normal work, ability to perform activities of daily living, normal function, general activity, mood and enjoyment of life. [facility] Medical History REJI III (cervical intraepithelial neoplasia grade III) with severe dysplasia Hx of LEEP (loop electrosurgical excision procedure) of cervix complicating Hypothyroid High cholesterol Surgical History Hx of tubal ligation Hx of hernia repair History of back surgery Hx of appendectomy Hx of section Family History Maternal Aunt Breast cancer Father Prostate cancer Social History Housing: House Patient Tobacco Use Status: Current everyday Tobacco user Cigarettes Per Day: 2 e-Cigarette/Vaping Use: Never Used service: No Current occupational status: employed Cognitive needs: No Hearing needs: No Vision needs: No Female Reproductive History Menstrual Age of Menarche: 15 Review of Systems Const All systems reviewed & are unremarkable except as noted in HPI and below Physical Exam Vital Signs: BMI result Body Mass Index 23.6 Telephone visit only, physical exam and vital signs deferred Telehealth Telehealth Telehealth Platform: Telephone Location of provider rendering services: practice address Location of patient: address on file Patient Identification confirmed using: Name, : Yes Telehealth method: voice only Patient verbally consented to treatment: Yes Patient verbally consented to billing insurance company: Yes Patient informed of any privacy concerns related to visit: Yes Minutes spent on Phone/Video with Pt.: 8 Results Reviewed Results Reviewed: 03/12/24 XR/XR thoracic spine 2V FINDINGS: There is a stable but increased kyphosis of the upper dorsal spine. The vertebral alignment is otherwise normal. Minimal multilevel spondylosis of the dorsal spine manifested by small endplate osteophytes anteriorly without significant disc space narrowing. Surrounding bone and soft tissues are unremarkable. IMPRESSION: 1. Stable increased kyphosis of the upper dorsal spine. 2. No acute abnormality. Minimal spondylosis. Assessment & Plan Assessment & Plan (1) Thoracic back pain: Code(s): M54.6 - Pain in thoracic spine Category: Medical Qualifiers: Chronicity: acute Back pain laterality: midline Qualified Code(s): M54.6 - Pain in thoracic spine Plan Continue with Diclofenac 1% topical. Apply to most painful area up to 4 times daily as needed. Will increase gabapentin to 600 mg 3 times daily. Patient advised on cautions for use. All questions and concerns were answered, patient agrees with the plan. Follow up in 3 months, sooner if needed Medications: New gabapentin 600 mg PO TID 90 tabs 6RF Discontinued gabapentin Discontinued Reason: Doctor's Order 400 mg PO TID 90 caps 3RF Coding Level of Care Code Tele Est Pt Level 3 (58506) Complex EM visit Add On G2211 Diagnoses Acute midline thoracic back pain M54.6 Chronicity: acute Back pain laterality: midline
== END 2024-07-23 14:23 | disposition home or self-care (01) ==
LOC: HO.PMC 14:07
PROVIDERS: PCP Internal Medicine; Visit Provider Registered Nurse Emergency
DX: M54.6 Pain in thoracic spine (principal)
CPT/HCPCS: 99441

== ENCOUNTER → 2024-07-23 14:07 | Outpatient (BNVA) | payer BC, SELFPAY | PROVIDERS: PCP Internal Medicine; Visit Provider Registered Nurse Emergency ==

== ENCOUNTER 2024-07-28 09:51 | Outpatient (AMB) | payer BC, SELFPAY ==
--- NOTE | 2024-07-28 09:55 | MHC.PC.OV ---
Vital Signs 07/28/24 10:00 Weight 147 lb 6 oz BP 132/88 Blood Pressure Location Lt brachial Position Sitting Pulse 84 Pulse Source Pulse Oximeter Pulse Oximetry (%) 100 Oxygen Delivery Method Room Air Intake Visit Reasons: Lt Shoulder Pain Allergies clindamycin [CLINDAMYCIN] Allergy (Unknown, Verified 07/28/24 10:03) RASH fluconazole [From Diflucan] Allergy (Unknown, Verified 07/28/24 10:03) HIVES NSAIDS (Non-Steroidal Anti-Inflamma [NSAIDS] Allergy (Unknown, Verified 07/28/24 10:03) EDEMA sulfamethoxazole [From BACTRIM] Allergy (Unknown, Verified 07/28/24 10:03) ITCHINESS tramadol [Tramadol] Allergy (Unknown, Verified 07/28/24 10:03) HEART RACES trimethoprim [From BACTRIM] Allergy (Unknown, Verified 07/28/24 10:03) ITCHINESS Ansaid Allergy (Unknown, Uncoded 04/08/24 10:35) Diarrhea Clindamycin HCl Allergy (Unknown, Uncoded 04/08/24 10:35) Rash From Toradol Adverse Reaction (Unknown, Uncoded 04/08/24 10:35) SLOWS HEART From Vicodin Adverse Reaction (Unknown, Uncoded 04/08/24 10:35) NAUSEAU Medication List - Last Reconciled 07/28/24 by Naina Garcias MD atorvastatin 40 mg PO DAILY baclofen 10 mg PO BID PRN 30 days gabapentin 600 mg PO TID levothyroxine 125 mcg PO DAILY methocarbamol 1,000 mg PO TID Tobacco use date assessed: 07/28/24 Dental Screening Dental Screen Date: 07/28/24 Did you have a dental visit in the last 12 months?: No Did you have a dental problem in the last 6 months where you did not have access to dental care?: No Was dental information given to patient?: No HPI Lt Shoulder Pain HPI Details Chief Complaint The patient complains of left shoulder pain limiting movement and causing nocturnal disruptions. Assessment and Plan A 53-year-old female with a history of upper back pain presenting with severe, acute left shoulder pain persisting over a week. Following a recent work-related incident, an x-ray was performed, revealing no fractures. Pain exacerbates with movement, and the patient reports auditory concerns of a 'pop.' Medication history includes a recent prescription of gabapentin and oxycodone, indicating serious consideration of pain management aside from possible arthritis. The patient requested documentation for occupational restrictions due to inadequate workplace accommodations potentially contributing to the injury. 1. 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 Gabapentin dosage recently increased by pain management clinic. The patient is advised to maintain current regimen awaiting therapeutic response, and to reassess pain specialist recommendations as needed. 2. Shoulder Pain The patient exhibits pronounced pain on the anterior part of the left shoulder with movement restrictions, corroborated by occupational overuse. X-ray reports lack evidence for fractures. Plan includes pain management with oxycodone, to be used with caution due to prior prescription at the ER. Further evaluation contingent on symptom progression, possibly necessitating physical therapy or orthopedic consult if exacerbation persists. Patient advised on workplace restrictions, highlighting ergonomic assessment and avoidance of strenuous activities. Diagnostic results - X-ray of the shoulder: No fractures detected Problem List - Shoulder pain - Upper back pain - Potential musculoskeletal injury Patient Instructions - Adhere strictly to prescribed oxycodone dosages, taking it no more than twice a day. - Implement workplace restrictions, avoiding lifting or excessive physical strain, and follow employer protocols to document work limitations. - Monitor shoulder pain symptoms closely; return for reassessment if symptoms persist or worsen. - Consider non-pharmacological pain relief options where possible, including ergonomic adjustments and positioning strategies to minimize discomfort. - Continue current gabapentin regimen for upper back pain, with eventual reconsultation if insufficient. [facility] Medical History REJI III (cervical intraepithelial neoplasia grade III) with severe dysplasia Hx of LEEP (loop electrosurgical excision procedure) of cervix complicating Hypothyroid High cholesterol Surgical History Hx of tubal ligation Hx of hernia repair History of back surgery Hx of appendectomy Hx of section Family History Maternal Aunt Breast cancer Father Prostate cancer Social History Housing: House Patient Tobacco Use Status: Current everyday Tobacco user Cigarettes Per Day: 2 e-Cigarette/Vaping Use: Never Used service: No Current occupational status: employed Cognitive needs: No Hearing needs: No Vision needs: No Female Reproductive History Menstrual Age of Menarche: 15 Questionnaire Thrive Questionnaire Date Thrive assessed: 03/12/24 I am a: Patient What is your living situation today?: I have a steady place to live Within the past 12 months, did the food you bought not last and you didn't have the money to get more?: Often true Within the past 12 months, did you worry whether your food would run out before you got money to buy more?: Often true Do you have trouble paying for medicines?: No Do you have trouble getting transportation to medical appointments?: No Do you have trouble paying your heating and electricity bill?: Yes Do you have trouble taking care of your child, family member or friend?: No Do you have trouble with day-to-day activities such as bathing, preparing meals, shopping, managing finances, etc.?: No Are you currently unemployed and looking for a job?: No Are you interested in more education?: No Currently or been in a relationship where the following occur: No concerns reported THRIVE Score: 3 AUDIT C Alcohol Use Questionnaire (AUDIT-C) 1. How often do you have a drink containing alcohol?: Never 2. How many drinks containing alcohol do you have on a typical day when you are drinking?: 1 or 2 3. How often do you have six or more drinks on one occasion?: Never Total Score: 0 Score Reviewed/Action Taken: Yes ILYA-7 AMB Questionnaire ILYA-7 Date ILYA - 7 assessed: 03/25/24 Source: Developed by Drs. Otilio Cohn, Noemi Perez, Tej Smith and colleagues, with an educational julissa from [employer]. Review of Systems Const Denies chills and Denies fever(s) ENT Denies epistaxis and Denies nasal discharge Card Denies chest pain Resp Denies chest congestion, Denies cough and Denies hemoptysis GI Denies diarrhea and Denies nausea Skin/Breast Denies rash Neuro Reports no additional complaints Psych Reports no additional complaints Endo Reports no additional complaints Physical exam (Primary Care) Vital Signs: Last Vital Signs Pulse 84 07/28/24 10:00 BP 132/88 07/28/24 10:00 Pulse Ox 100 07/28/24 10:00 Oxygen Delivery Method Room Air 07/28/24 10:00 Tobacco/Smoking Status: Tobacco use Status Tobacco use date assessed 07/28/24 07/28/24 10:04 Patient Tobacco Use Status Current everyday Tobacco 07/28/24 09:56 e-Cigarette/Vaping Use Never Used 07/28/24 09:56 Thrive Assessment: Date of Thrive Assessment Date Thrive assessed 03/12/24 07/28/24 09:56 Currently or been in a relationship where the following occur: No concerns reported Const General: cooperative, comfortable and no acute distress Orientation/consciousness: patient oriented x3 HENMT Head: Yes normocephalic Eyes General: appearance normal, both eyes and all related structures Neck Neck: Yes supple Resp Effort & Inspection: normal respiratory effort, no cough and no stridor Cardio Rhythm: regular rhythm Heart sounds: S1 normal heart sound present and S2 normal heart sound present Skin General skin exam: turgor normal Neuro General: patient oriented x3, tone normal and moves all extremities Extrem Right lower extremity: no edema Left lower extremity: no edema Coding Level of Care Code Est Pt Level 4 (32639) Diagnoses Acute pain of left shoulder M25.512 Assessment & Plan Assessment & Plan (1) Acute pain of left shoulder: Code(s): M25.512 - Pain in left shoulder Category: Medical Plan Chief Complaint The patient complains of left shoulder pain limiting movement and causing nocturnal disruptions. Assessment and Plan A 53-year-old female with a history of upper back pain presenting with severe, acute left shoulder pain persisting over a week. Following a recent work-related incident, Pain exacerbates with movement, and the patient reports auditory concerns of a 'pop.' The patient requested documentation for occupational restrictions due to inadequate workplace accommodations potentially contributing to the injury. 1. Upper Back Pain Chronic upper back pain exacerbated by workload of heavy lifting. Gabapentin dosage recently increased by pain management clinic. The patient is advised to maintain current regimen awaiting therapeutic response, and to reassess pain specialist recommendations as needed. 2. Shoulder Pain The patient exhibits pronounced pain on the anterior part of the left shoulder with movement restrictions, corroborated by occupational overuse. X-ray reports lack evidence for fractures. That was done in the emergency room [facility], I do not have the report available to review. Plan includes pain management with oxycodone, to be used with caution due to prior prescription at the ER. Further evaluation contingent on symptom progression, possibly necessitating physical therapy or orthopedic consult if exacerbation persists. Patient advised on workplace restrictions, highlighting ergonomic assessment and avoidance of strenuous activities. Diagnostic results - X-ray of the shoulder: No fractures detected Problem List - Shoulder pain - Upper back pain - Potential musculoskeletal injury Patient Instructions - Adhere strictly to prescribed oxycodone dosages, taking it no more than twice a day. - Implement workplace restrictions, avoiding lifting or excessive physical strain, and follow employer protocols to document work limitations. - Monitor shoulder pain symptoms closely; return for reassessment if symptoms persist or worsen. - Consider non-pharmacological pain relief options where possible, including ergonomic adjustments and positioning strategies to minimize discomfort. - Continue current gabapentin regimen for upper back pain, with eventual reconsultation if insufficien 30 minutes spent in care of this patient including paperwork Medications: New oxycodone-acetaminophen 5-325 mg (Percocet) Partial Fill upon patient request. 1 tab PO BID 7 days PRN 14 tabs 0RF pain
[2024-07-28 10:00] VITALS: BP 132/88; PULSE 84; O2SAT 100
== END 2024-07-28 10:30 | disposition home or self-care (01) ==
PROVIDERS: PCP Internal Medicine; Visit Provider Internal Medicine
DX: M25.512 Pain in left shoulder (principal)

== ENCOUNTER → 2024-07-28 09:51 | Outpatient (BNVA) | payer BC, SELFPAY | PROVIDERS: PCP Internal Medicine; Visit Provider Internal Medicine ==

== ENCOUNTER 2024-08-04 08:44 | Outpatient (AMB) | payer BC, SELFPAY ==
[2024-08-04 08:47] VITALS: BP 118/76; PULSE 88; O2SAT 98; BMI 24.2
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
== END 2024-08-04 09:07 | disposition home or self-care (01) ==
PROVIDERS: PCP Internal Medicine; Visit Provider Internal Medicine
DX: M25.512 Pain in left shoulder (principal); M54.6 Pain in thoracic spine

== ENCOUNTER → 2024-08-04 08:44 | Outpatient (BNVA) | payer BC, SELFPAY | PROVIDERS: PCP Internal Medicine; Visit Provider Internal Medicine ==

== ENCOUNTER 2024-08-06 15:04 | Outpatient (AMB) | payer BC, SELFPAY ==
[2024-08-06 15:05] VITALS: BP 120/78; PULSE 88; O2SAT 98; BMI 24.2
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
== END 2024-08-06 15:20 | disposition home or self-care (01) ==
LOC: HO.HMCC 15:04
PROVIDERS: PCP Internal Medicine; Visit Provider Internal Medicine
DX: M25.512 Pain in left shoulder (principal)

== ENCOUNTER → 2024-08-06 15:04 | Outpatient (BNVA) | payer BC, SELFPAY | PROVIDERS: PCP Internal Medicine; Visit Provider Internal Medicine ==

== ENCOUNTER → 2024-08-27 10:30 | Outpatient (BNVA) | payer BC, SELFPAY | PROVIDERS: PCP Internal Medicine; Visit Provider Internal Medicine | DX: M25.512 Pain in left shoulder (principal); Z79.891 Long term (current) use of opiate analgesic | CPT/HCPCS: 96127; 99212 ==

== ENCOUNTER 2024-09-07 12:49 | Outpatient (AMB) | payer OTHER, BC, SELFPAY ==
--- NOTE | 2024-09-07 12:58 | MHC.OFFVIS ---
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 The patient states that on 07/23/2024 she was lifting a heavy box at work when she felt ?a pop? in her left shoulder. She denies any pain or weakness prior to that injury. Since that time her symptoms have gotten worse in spite of continued non operative treatments. She has been doing physical therapy exercises which aggravated her pain. She has also tried Tylenol which gives her minimal relief. She is not able to tolerate anti-inflammatory medicines. She reports difficulty lifting her left hand above shoulder height. Allergies clindamycin [CLINDAMYCIN] Allergy (Unknown, Verified 09/07/24 13:03) RASH fluconazole [From Diflucan] Allergy (Unknown, Verified 09/07/24 13:03) HIVES NSAIDS (Non-Steroidal Anti-Inflamma [NSAIDS] Allergy (Unknown, Verified 09/07/24 13:03) EDEMA sulfamethoxazole [From BACTRIM] Allergy (Unknown, Verified 09/07/24 13:03) ITCHINESS trimethoprim [From BACTRIM] Allergy (Unknown, Verified 09/07/24 13:03) ITCHINESS Ansaid Allergy (Unknown, Uncoded 09/07/24 13:03) Diarrhea Clindamycin HCl Allergy (Unknown, Uncoded 09/07/24 13:03) Rash From Toradol Adverse Reaction (Unknown, Uncoded 09/07/24 13:03) SLOWS HEART From Vicodin Adverse Reaction (Unknown, Uncoded 09/07/24 13:03) NAUSEAU Medication List - Last Reconciled 09/07/24 by Rhett Oropeza MD atorvastatin 40 mg PO DAILY gabapentin 600 mg PO TID levothyroxine 125 mcg PO DAILY methocarbamol 1,000 mg PO TID oxycodone-acetaminophen 5-325 mg (Percocet) 1 tab PO BID PRN 7 days COUNT INCLUDES THE [facility] Medical History REJI III (cervical intraepithelial neoplasia grade III) with severe dysplasia Hx of LEEP (loop electrosurgical excision procedure) of cervix complicating Hypothyroid High cholesterol Surgical History Hx of tubal ligation Hx of hernia repair History of back surgery Hx of appendectomy Hx of section Family History Maternal Aunt Breast cancer Father Prostate cancer Social History (Updated 09/07/24 @ 13:08 by ELMER Lomeli) Housing: House Patient Tobacco Use Status: Current everyday Tobacco user Cigarettes Per Day: 2 e-Cigarette/Vaping Use: Never Used service: No Current occupational status: employed Current occupation: rt handed Cognitive needs: No Hearing needs: No Vision needs: No Female Reproductive History Menstrual Age of Menarche: 15 Physical Exam Vital Signs: BMI result Body Mass Index 23.9 Const Other: Well-nourished well-developed very friendly female awake alert and oriented x3 in no acute distress Extrem Other: Bilateral upper extremity examination shows good capillary refill, no skin lesions noted, normal sensation light touch Left shoulder examination shows decreased active and passive range of motion when compared to her right shoulder, pain with range of motion, 4/5 strength with supraspinatus testing, positive impingement signs, no instability Results Reviewed Results Reviewed: X-rays of the patient's left shoulder taken previously show severe acromioclavicular joint narrowing, a type 2 acromion, no acute bony abnormalities Assessment & Plan Assessment & Plan (1) Rotator cuff insufficiency of left shoulder: Code(s): M25.312 - Other instability, left shoulder Category: Medical Plan Ms. Riggs presents with progressively worsening left shoulder pain and weakness most likely due to a full-thickness rotator cuff tear. Thus, I will send the patient for an MRI of her left shoulder for further evaluation. I will see her back once the MRI is completed to discuss the findings and treatment options. Feel free to call me at any time should questions regarding her orthopedic management arise. Thank you very much for asking me to see this very friendly patient. I spent 21 minutes in reviewing the patient's records and imaging studies, seeing the patient and documenting in the medical record. Orders: Orders XR shoulder LT min 2V Today M25.512 - Pain in left shoulder MR shoulder LT wo con Today M25.312 - Other instability, left shoulder Coding Level of Care Code New Pt Level 3 (92525) Complex EM visit Add On G21 Diagnoses Rotator cuff insufficiency of left shoulder M25.312
[2024-09-07 13:00] VITALS: BMI 23.9
== END 2024-09-07 13:21 | disposition home or self-care (01) ==
PROVIDERS: PCP Internal Medicine; Visit Provider Orthopaedic Surgery
DX: M25.312 Other instability, left shoulder (principal)
CPT/HCPCS: 99203; G2211

== ENCOUNTER 2024-09-07 13:45 | Outpatient (AMB) | payer BC, SELFPAY ==
[2024-09-07 13:59] VITALS: BP 120/82; PULSE 106; O2SAT 96; BMI 24.2
--- NOTE | 2024-09-07 13:59 | AM.OFFWIN_ITS ---
Intake Vital Signs 09/07/24 13:59 Height 5 ft 6 in Weight 150 lb BMI 24.2 BP 120/82 Blood Pressure Location Rt brachial Position Sitting Pulse 106 H Pulse Source Pulse Oximeter Pulse Oximetry (%) 96 Oxygen Delivery Method Room Air Intake Visit Reasons: EP-lt shoulder pain Intake Note: Pt presents to the office today for c/o left shoulder pain. Pt was seen by [facility] today and was told by the doctor to see her PCP Dr. Garcias for a refill on the Oxycodone and that he couldnt prescribe anything until she has her MRI. Patient Tobacco Use Status: Current everyday Tobacco user Allergies clindamycin [CLINDAMYCIN] Allergy (Unknown, Verified 09/07/24 14:02) RASH fluconazole [From Diflucan] Allergy (Unknown, Verified 09/07/24 14:02) HIVES NSAIDS (Non-Steroidal Anti-Inflamma [NSAIDS] Allergy (Unknown, Verified 09/07/24 14:02) EDEMA sulfamethoxazole [From BACTRIM] Allergy (Unknown, Verified 09/07/24 14:02) ITCHINESS trimethoprim [From BACTRIM] Allergy (Unknown, Verified 09/07/24 14:02) ITCHINESS Ansaid Allergy (Unknown, Uncoded 09/07/24 14:02) Diarrhea Clindamycin HCl Allergy (Unknown, Uncoded 09/07/24 14:02) Rash From Toradol Adverse Reaction (Unknown, Uncoded 09/07/24 14:02) SLOWS HEART From Vicodin Adverse Reaction (Unknown, Uncoded 09/07/24 14:02) NAUSEAU HPI HPI Comments History of Present Illness Details This is a 53-year-old right-hand dominant female with a past medical history of hyperlipidemia, hyperthyroidism and new left shoulder pain as of August 06, 2024 presenting from her orthopedic visit with Dr. Oropeza requesting a refill of her oxycodone. The patient states that she saw Orthopedics today and they are scheduling an MRI for ongoing evaluation and management of her left shoulder pain which is thought to be related to a full-thickness rotator cuff tear. Patient has been taking Tylenol without relief for discomfort. Patient states that she has been without her oxycodone for the past 3 days. She denies any new injury or trauma affecting her left shoulder. [facility] Medical History REJI III (cervical intraepithelial neoplasia grade III) with severe dysplasia Hx of LEEP (loop electrosurgical excision procedure) of cervix complicating Hypothyroid High cholesterol Surgical History Hx of tubal ligation Hx of hernia repair History of back surgery Hx of appendectomy Hx of section Family History Maternal Aunt Breast cancer Father Prostate cancer Social History (Updated 09/07/24 @ 13:08 by ELMER Lomeli) Housing: House Patient Tobacco Use Status: Current everyday Tobacco user Cigarettes Per Day: 2 e-Cigarette/Vaping Use: Never Used service: No Current occupational status: employed Current occupation: rt handed Cognitive needs: No Hearing needs: No Vision needs: No Female Reproductive History Menstrual Age of Menarche: 15 Physical Exam Vital Signs: Last Vital Signs Pulse 106 H 09/07/24 13:59 BP 120/82 09/07/24 13:59 Pulse Ox 96 09/07/24 13:59 Oxygen Delivery Method Room Air 09/07/24 13:59 BMI result Body Mass Index 24.2 Assessment & Plan Assessment & Plan (1) Left shoulder pain: Comment: Physical examination is deferred given that this patient just left her orthopedic visits. I have explained to the patient that the walk-in does not refill narcotic prescriptions. The patient is understanding and will follow up with Dr. Garcias as an outpatient for refills of her pain medication. Code(s): M25.512 - Pain in left shoulder Qualifiers: Chronicity: unspecified Qualified Code(s): M25.512 - Pain in left shoulder Plan: Patient will follow up with PCP for pain medication refills. She is in agreement with this plan of care. Coding Level of Care Code Est Pt Level 3 (24637) Diagnoses Left shoulder pain, unspecified chronicity M25.512 Chronicity: unspecified Time Spent (min) 20
== END 2024-09-07 15:55 | disposition home or self-care (01) ==
LOC: HO.HMCWIC 13:45
PROVIDERS: PCP Internal Medicine
DX: M25.512 Pain in left shoulder (principal)

== ENCOUNTER 2024-09-07 14:31 | Outpatient (REF) | payer BC, SELFPAY ==
--- NOTE | ~2024-09-07 | XR_ITS ---
EXAMINATION: XR SHOULDER 2 OR MORE VIEWS LEFT HISTORY: M25.512 - Pain in left shoulder COMPARISON: Comparison is made with the prior examination dated 09/19/2013. FINDINGS: Two views of the left shoulder are submitted. Osseous mineralization is normal. There is no fracture or dislocation. The glenohumeral joint is maintained. There is mild to moderate osteoarthritis of the AC joint with joint space narrowing and osteophyte formation. The soft tissues are unremarkable. 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 Electronically signed by: Otilio Arias MD 09/07/2024 02:06 PM PAN
== END 2024-09-07 14:32 | disposition home or self-care (01) ==
LOC: HO.HOSX 14:31
PROVIDERS: Visit Provider Orthopaedic Surgery
DX: M25.512 Pain in left shoulder (principal); M25.312 Other instability, left shoulder
CPT/HCPCS: 73030; 99202

== ENCOUNTER → 2024-09-10 15:16 | Outpatient (BNVA) | payer BC, SELFPAY | PROVIDERS: PCP Internal Medicine; Visit Provider Internal Medicine | DX: M25.312 Other instability, left shoulder (principal); R52 Pain, unspecified | CPT/HCPCS: 99212 ==

== ENCOUNTER → 2024-09-16 19:45 | Outpatient (BNV) | payer OTHER, SELFPAY | PROVIDERS: PCP Internal Medicine; Visit Provider Radiology Diagnostic Radiology | DX: M25.312 Other instability, left shoulder (principal) | CPT/HCPCS: 73221 ==

== ENCOUNTER 2024-09-16 19:47 | Outpatient (REF) | payer BC, OTHER, SELFPAY ==
--- NOTE | ~2024-09-16 | MR_ITS ---
CLINICAL HISTORY: M25.312 - Other instability, left shoulder MR left shoulder without gadolinium Comparison: None Findings: There is significant acromioclavicular osteoarthrosis with distal clavicle and acromial osteophytes . There is increased T2 signal within the AC joint and small erosions. There is mild effacement of the distal supraspinatus muscle and tendon. There is mild increased T2 signal within the distal supraspinatus and infraspinatus tendons . There is no tendon retraction. The subscapularis and teres minor tendons are intact There are small subchondral geodes within the humeral head most significant within the region of the greater tuberosity. There is mild glenohumeral osteophytes. There is mild blunting with mild deformity of the anterior superior and anterior inferior labrum. There are possible small glenoid cartilage defects. The bicipital tendon is intact. There is small amount of fluid within the bicipital tendon sheath. There is mild increased T2 signal within the bicipital tendon. No full-thickness tear . No acute fractures. No significant marrow signal abnormalities. No soft tissue lesions. IMPRESSION: AC joint osteoarthrosis mild effacement of the superior aspect supraspinatus tendon suspicious for impingement Tendinosis distal supraspinatus and infraspinatus tendons no MRI evidence for full-thickness tear Small subchondral geodes, mild articular and tiny osteochondral defects greater tuberosity at the region of the supraspinatus tendon insertion Mild glenohumeral osteoarthrosis, possibly glenoid cartilage defects, labral degeneration can not exclude anterior superior and anterior inferior degenerative labral tears This document has been electronically signed by: Otilio Jain MD on 09/18/2024 08:07:06
== END 2024-09-16 19:48 | disposition home or self-care (01) ==
LOC: HO.MRI 19:47
PROVIDERS: PCP Internal Medicine; Visit Provider Orthopaedic Surgery
DX: M25.312 Other instability, left shoulder (principal); M19.012 Primary osteoarthritis, left shoulder; M75.92 Shoulder lesion, unspecified, left shoulder; R93.89 Abnormal findings on diagnostic imaging of other specified body structures
CPT/HCPCS: 73221

== ENCOUNTER 2024-10-08 12:24 | Outpatient (AMB) | payer OTHER, BC, SELFPAY ==
--- NOTE | 2024-10-08 12:27 | MHC.PC.OV ---
Vital Signs 10/08/24 12:28 Height 5 ft 6 in Weight 151 lb BMI 24.4 BP 122/80 Blood Pressure Location Rt brachial Position Sitting Pulse 89 Pulse Source Pulse Oximeter Temp 97.9 F Temp Source Oral Pulse Oximetry (%) 97 Oxygen Delivery Method Room Air Intake Visit Reasons: 1m follow up Allergies clindamycin [CLINDAMYCIN] Allergy (Unknown, Verified 10/08/24 12:29) RASH fluconazole [From Diflucan] Allergy (Unknown, Verified 10/08/24 12:29) HIVES NSAIDS (Non-Steroidal Anti-Inflamma [NSAIDS] Allergy (Unknown, Verified 10/08/24 12:29) EDEMA sulfamethoxazole [From BACTRIM] Allergy (Unknown, Verified 10/08/24 12:29) ITCHINESS trimethoprim [From BACTRIM] Allergy (Unknown, Verified 10/08/24 12:29) ITCHINESS Ansaid Allergy (Unknown, Uncoded 09/07/24 14:02) Diarrhea Clindamycin HCl Allergy (Unknown, Uncoded 09/07/24 14:02) Rash From Toradol Adverse Reaction (Unknown, Uncoded 09/07/24 14:02) SLOWS HEART From Vicodin Adverse Reaction (Unknown, Uncoded 09/07/24 14:02) NAUSEAU Medication List - Last Reconciled 10/08/24 by Naina Garcias MD atorvastatin 40 mg PO DAILY gabapentin 600 mg PO TID levothyroxine 125 mcg PO DAILY oxycodone-acetaminophen 5-325 mg (Percocet) 1 tab PO BID PRN 5 days Tobacco use date assessed: 09/10/24 Dental Screening Dental Screen Date: 09/10/24 HPI 1m follow up HPI Details History - The patient is a 54-year-old female presenting with a need for a medication refill to manage pain associated with shoulder issues. - Patient reports MRI findings of a full thickness rotator cuff tear and AC joint osteoarthritis. - Pain management strategies include scheduled medication use, with occasional added doses for severe pain. - Symptom management involves avoiding stiffness through limited movement and using ice therapy on the left shoulder. - Follow-up with crisis intervention specialist is scheduled for further management discussion. Problem List - Full Thickness Rotator Cuff Tear - AC Joint Osteoarthritis Patient Instructions - Continue taking pain medication as prescribed until the upcoming orthopedic appointment. - Limit shoulder movement to prevent stiffness, but maintain gentle activity as tolerated. - Apply ice to the left shoulder when experiencing increased pain or swelling. - Attend the orthopedic appointment scheduled on October 19 for further evaluation and management plan. Review of Systems - General: No fever no chills - Neurological: No headaches no dizziness - Ear nose throat: No sore throat no hearing difficulty no ear pain - Cardiovascular: No syncope, no chest pain, no palpitations - Gastrointestinal: No nausea vomiting or diarrhea - Endocrine: No polyuria polydipsia no heat intolerance - Genitourinary: No dysuria , no blood in urine Physical Exam General: No acute distress HEENT: No acute findings Neck: Supple Respiratory system: Able to talk in full sentences, no audible wheeze cardiovascular: S1-S2 regular in rate and rhythm Gastrointestinal: No pain Extremities: Full thickness tear in the left shoulder 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 awake oriented x3 motor sensory intact Skin: Normal turgor PFSH Medical History REJI III (cervical intraepithelial neoplasia grade III) with severe dysplasia Hx of LEEP (loop electrosurgical excision procedure) of cervix complicating Hypothyroid High cholesterol Surgical History Hx of tubal ligation Hx of hernia repair History of back surgery Hx of appendectomy Hx of section Family History Maternal Aunt Breast cancer Father Prostate cancer Social History Housing: House Patient Tobacco Use Status: Current everyday Tobacco user Cigarettes Per Day: 2 e-Cigarette/Vaping Use: Never Used service: No Current occupational status: employed Current occupation: rt handed Cognitive needs: No Hearing needs: No Vision needs: No Female Reproductive History Menstrual Age of Menarche: 15 Questionnaire Thrive Questionnaire Date Thrive assessed: 08/20/24 I am a: Patient What is your living situation today?: I have a steady place to live Within the past 12 months, did the food you bought not last and you didn't have the money to get more?: Sometimes True Within the past 12 months, did you worry whether your food would run out before you got money to buy more?: Sometimes True Do you have trouble paying for medicines?: No Do you have trouble getting transportation to medical appointments?: No Do you have trouble paying your heating and electricity bill?: No Do you have trouble taking care of your child, family member or friend?: No Do you have trouble with day-to-day activities such as bathing, preparing meals, shopping, managing finances, etc.?: No Are you currently unemployed and looking for a job?: No Are you interested in more education?: No Please select the resources that you would like help with: None Currently or been in a relationship where the following occur: No concerns reported THRIVE Score: 2 ILYA-7 AMB Questionnaire ILYA-7 Date ILYA - 7 assessed: 08/27/24 Source: Developed by Drs. Otilio Cohn, Noemi Perez, Tej Smith and colleagues, with an educational julissa from [employer]. Physical exam (Primary Care) Vital Signs: Last Vital Signs Temp 97.9 F 10/08/24 12:28 Pulse 89 10/08/24 12:28 BP 122/80 10/08/24 12:28 Pulse Ox 97 10/08/24 12:28 Oxygen Delivery Method Room Air 10/08/24 12:28 BMI result Body Mass Index 24.4 Tobacco/Smoking Status: Tobacco use Status Tobacco use date assessed 09/10/24 10/08/24 12:31 Patient Tobacco Use Status Current everyday Tobacco 10/08/24 12:31 e-Cigarette/Vaping Use Never Used 10/08/24 12:31 Thrive Assessment: Date of Thrive Assessment Date Thrive assessed 08/20/24 10/08/24 12:31 Currently or been in a relationship where the following occur: No concerns reported Coding Level of Care Code Est Pt Level 3 (22408) Diagnoses Rotator cuff insufficiency of left shoulder M25.312 Pain management R52 Assessment & Plan Assessment & Plan (1) Rotator cuff insufficiency of left shoulder: Code(s): M25.312 - Other instability, left shoulder Category: Medical (2) Pain management: Code(s): R52 - Pain, unspecified Category: Medical Plan History - The patient is a 54-year-old female presenting with a need for a medication refill to manage pain associated with shoulder issues. - Patient reports MRI findings of a full thickness rotator cuff tear and AC joint osteoarthritis. - Pain management strategies include scheduled medication use, with occasional added doses for severe pain. - Symptom management involves avoiding stiffness through limited movement and using ice therapy on the left shoulder. - Follow-up with crisis intervention specialist is scheduled for further management discussion. Problem List - Full Thickness Rotator Cuff Tear - AC Joint Osteoarthritis Patient Instructions - Continue taking pain medication as prescribed until the upcoming orthopedic appointment. - Limit shoulder movement to prevent stiffness, but maintain gentle activity as tolerated. - Apply ice to the left shoulder when experiencing increased pain or swelling. - Attend the orthopedic appointment scheduled on October 19 for further evaluation and management plan. Medications: Changed From oxycodone-acetaminophen 5-325 mg (Percocet) Partial Fill upon patient request. 1 tab PO BID 5 days PRN 10 tabs 0RF pain To oxycodone-acetaminophen 5-325 mg (Percocet) Partial Fill upon patient request. 1 tab PO BID PRN 30 tabs 0RF pain 15 days
[2024-10-08 12:28] VITALS: BP 122/80; PULSE 89; TEMP 36.6; O2SAT 97; BMI 24.4
== END 2024-10-08 14:14 | disposition home or self-care (01) ==
PROVIDERS: PCP Internal Medicine; Visit Provider Internal Medicine
DX: M25.312 Other instability, left shoulder (principal); R52 Pain, unspecified

== ENCOUNTER → 2024-10-08 12:24 | Outpatient (BNVA) | payer OTHER, BC, SELFPAY | PROVIDERS: PCP Internal Medicine; Visit Provider Internal Medicine | DX: M25.312 Other instability, left shoulder (principal); M19.012 Primary osteoarthritis, left shoulder | CPT/HCPCS: 99212 ==

== ENCOUNTER 2024-10-19 13:41 | Outpatient (AMB) | payer OTHER, SELFPAY ==
--- NOTE | 2024-10-19 14:00 | MHC.OFFVIS ---
Vital Signs 10/19/24 14:03 Height 5 ft 6 in Weight 151 lb BMI 24.4 Intake Visit Reasons: OV- left shoulder MRI review Intake Note: Mary Ann is a 53 year old right hand dominant female who presents with complaints of progressively worsening left shoulder pain and weakness. The patient states that on 07/23/2024 she was lifting a heavy box at work when she felt ?a pop? in her left shoulder. She denies any pain or weakness prior to that injury. Since that time her symptoms have gotten worse in spite of continued non operative treatments. She has been doing physical therapy exercises which aggravated her pain. She has also tried Tylenol which gives her minimal relief. She is not able to tolerate anti-inflammatory medicines. She reports difficulty lifting her left hand above shoulder height. Allergies clindamycin [CLINDAMYCIN] Allergy (Unknown, Verified 10/19/24 14:00) RASH fluconazole [From Diflucan] Allergy (Unknown, Verified 10/19/24 14:00) HIVES NSAIDS (Non-Steroidal Anti-Inflamma [NSAIDS] Allergy (Unknown, Verified 10/19/24 14:00) EDEMA sulfamethoxazole [From BACTRIM] Allergy (Unknown, Verified 10/19/24 14:00) ITCHINESS trimethoprim [From BACTRIM] Allergy (Unknown, Verified 10/19/24 14:00) ITCHINESS Ansaid Allergy (Unknown, Uncoded 10/19/24 14:00) Diarrhea Clindamycin HCl Allergy (Unknown, Uncoded 10/19/24 14:00) Rash From Toradol Adverse Reaction (Unknown, Uncoded 10/19/24 14:00) SLOWS HEART From Vicodin Adverse Reaction (Unknown, Uncoded 10/19/24 14:00) NAUSEAU Medication List - Last Reconciled 10/19/24 by Rhett Oropeza MD atorvastatin 40 mg PO DAILY gabapentin 600 mg PO TID levothyroxine 125 mcg PO DAILY oxycodone-acetaminophen 5-325 mg (Percocet) 1 tab PO BID PRN 15 days PFSH Medical History REJI III (cervical intraepithelial neoplasia grade III) with severe dysplasia Hx of LEEP (loop electrosurgical excision procedure) of cervix complicating Hypothyroid High cholesterol Surgical History Hx of tubal ligation Hx of hernia repair History of back surgery Hx of appendectomy Hx of section Family History Maternal Aunt Breast cancer Father Prostate cancer Social History Housing: House Patient Tobacco Use Status: Current everyday Tobacco user Cigarettes Per Day: 2 e-Cigarette/Vaping Use: Never Used service: No Current occupational status: employed Current occupation: rt handed Cognitive needs: No Hearing needs: No Vision needs: No Female Reproductive History Menstrual Age of Menarche: 15 Physical Exam Vital Signs: BMI result Body Mass Index 24.4 Const Other: Well-nourished well-developed very friendly female awake alert and oriented x3 in no acute distress Extrem Other: Bilateral upper extremity examination shows good capillary refill, no skin lesions noted, normal sensation light touch Left shoulder examination shows decreased active and passive range motion when compared to her right shoulder, 4+ out of 5 strength with supraspinatus testing, positive impingement signs, no instability, tenderness over her acromioclavicular joint Results Reviewed Results Reviewed: MRI of the patient's left shoulder show severe acromioclavicular joint narrowing, a type 2 acromion, signal change within the supraspinatus tendon most likely due to adhesive capsulitis Assessment & Plan Assessment & Plan (1) Impingement syndrome of left shoulder: Code(s): M75.42 - Impingement syndrome of left shoulder Category: Medical Plan Ms. Riggs presents with progressively worsening left shoulder pain and stiffness due to impingement syndrome, acromioclavicular joint arthritis and adhesive capsulitis. I had a lengthy discussion with the patient regarding the treatment options. At this point she has failed continued non operative treatments. The risks and benefits of left shoulder surgery were discussed at length with the patient. The patient wishes to proceed with surgery. Surgery will most likely involve left shoulder diagnostic arthroscopy with distal clavicle excision, acromioplasty, capsular release and manipulation under anesthesia. The patient will be scheduled for next available date. She will follow-up as instructed. Feel free to call me at any time should questions regarding her orthopedic management arise. I spent 21 minutes in reviewing the patient's records and imaging studies, seeing the patient and documenting in the medical record. Coding Level of Care Code Est Pt Level 3 (09162) Complex EM visit Add On G2211 Diagnoses Impingement syndrome of left shoulder M75.42
[2024-10-19 14:03] VITALS: BMI 24.4
== END 2024-10-19 14:27 | disposition home or self-care (01) ==
PROVIDERS: PCP Internal Medicine; Visit Provider Orthopaedic Surgery
DX: M75.42 Impingement syndrome of left shoulder (principal); Z04.2 Encounter for examination and observation following work accident
CPT/HCPCS: 99213; G2211

== ENCOUNTER → 2024-10-19 13:41 | Outpatient (BNVA) | payer OTHER, SELFPAY | PROVIDERS: PCP Internal Medicine; Visit Provider Orthopaedic Surgery | DX: M75.42 Impingement syndrome of left shoulder (principal); M19.012 Primary osteoarthritis, left shoulder; M75.02 Adhesive capsulitis of left shoulder | CPT/HCPCS: 99212 ==

== ENCOUNTER 2024-10-27 13:36 | Outpatient (AMB) | payer OTHER, SELFPAY ==
--- NOTE | 2024-10-27 13:46 | MHC.PC.OV ---
Vital Signs 10/27/24 13:50 Height 5 ft 6 in Weight 154 lb BMI 24.9 BP 122/80 Blood Pressure Location Rt brachial Position Sitting Pulse 93 Pulse Source Pulse Oximeter Pulse Oximetry (%) 96 Oxygen Delivery Method Room Air Intake Visit Reasons: Pain and med/?is this a WC Allergies clindamycin [CLINDAMYCIN] Allergy (Unknown, Verified 10/27/24 13:51) RASH fluconazole [From Diflucan] Allergy (Unknown, Verified 10/27/24 13:51) HIVES NSAIDS (Non-Steroidal Anti-Inflamma [NSAIDS] Allergy (Unknown, Verified 10/27/24 13:51) EDEMA sulfamethoxazole [From BACTRIM] Allergy (Unknown, Verified 10/27/24 13:51) ITCHINESS trimethoprim [From BACTRIM] Allergy (Unknown, Verified 10/27/24 13:51) ITCHINESS Ansaid Allergy (Unknown, Uncoded 10/19/24 14:00) Diarrhea Clindamycin HCl Allergy (Unknown, Uncoded 10/19/24 14:00) Rash From Toradol Adverse Reaction (Unknown, Uncoded 10/19/24 14:00) SLOWS HEART From Vicodin Adverse Reaction (Unknown, Uncoded 10/19/24 14:00) NAUSEAU Medication List - Last Reconciled 10/27/24 by Naina Garcias MD atorvastatin 40 mg PO DAILY gabapentin 600 mg PO TID levothyroxine 125 mcg PO DAILY oxycodone-acetaminophen 5-325 mg (Percocet) 1 tab PO Q8H PRN 7 days Tobacco use date assessed: 10/27/24 Dental Screening Dental Screen Date: 10/27/24 Did you have a dental visit in the last 12 months?: No Did you have a dental problem in the last 6 months where you did not have access to dental care?: No Was dental information given to patient?: Patient has dentist HPI Pain and med/?is this a WC HPI Details History - The patient is a 54-year-old female presenting with a need for a medication refill to manage pain associated with shoulder issues. - MRI showed full thickness rotator cuff tear and AC joint osteoarthritis. Left shoulder Patient is having surgery this coming Friday She has labs order for pre up evaluation through orthopedic office Meanwhile I have sent the pain medication for the patient She is aware that after the surgery the pain management will be through orthopedic Problem List - Full Thickness Rotator Cuff Tear - AC Joint Osteoarthritis Patient Instructions - Continue taking pain medication as prescribed until the surgery Review of Systems. - General: No fever no chills - Neurological: No headaches no dizziness - Ear nose throat: No sore throat no hearing difficulty no ear pain - Cardiovascular: No syncope, no chest pain, no palpitations - Gastrointestinal: No nausea vomiting or diarrhea - Endocrine: No polyuria polydipsia no heat intolerance - Genitourinary: No dysuria , no blood in urine Physical Exam General: No acute distress HEENT: No acute findings Neck: Supple Respiratory system: Able to talk in full sentences, no audible wheeze cardiovascular: S1-S2 regular in rate and rhythm Gastrointestinal: No pain Extremities: Full thickness tear in the left shoulder 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 x3 motor sensory intact Skin: Normal turgor PFSH Medical History REJI III (cervical intraepithelial neoplasia grade III) with severe dysplasia Hx of LEEP (loop electrosurgical excision procedure) of cervix complicating Hypothyroid High cholesterol Surgical History Hx of tubal ligation Hx of hernia repair History of back surgery Hx of appendectomy Hx of section Family History Maternal Aunt Breast cancer Father Prostate cancer Social History Housing: House Patient Tobacco Use Status: Current everyday Tobacco user Cigarettes Per Day: 2 e-Cigarette/Vaping Use: Never Used service: No Current occupational status: employed Current occupation: rt handed Cognitive needs: No Hearing needs: No Vision needs: No Female Reproductive History Menstrual Age of Menarche: 15 Questionnaire PHQ-9 Over the last 2 weeks, how often have you been bothered by any of the following problems? 24656 - PHQ-9 Billing: Yes Source: Developed by Drs. Otilio Cohn, Noemi Perez, Tej Smith and colleagues, with an educational julissa from [employer]. Thrive Questionnaire Date Thrive assessed: 10/27/24 I am a: Patient What is your living situation today?: I have a steady place to live Within the past 12 months, did the food you bought not last and you didn't have the money to get more?: Sometimes True Within the past 12 months, did you worry whether your food would run out before you got money to buy more?: Sometimes True Do you have trouble paying for medicines?: No Do you have trouble getting transportation to medical appointments?: No Do you have trouble paying your heating and electricity bill?: No Do you have trouble taking care of your child, family member or friend?: No Do you have trouble with day-to-day activities such as bathing, preparing meals, shopping, managing finances, etc.?: No Are you currently unemployed and looking for a job?: No Are you interested in more education?: No Please select the resources that you would like help with: None Currently or been in a relationship where the following occur: No concerns reported THRIVE Score: 2 AUDIT C Alcohol Use Questionnaire (AUDIT-C) 1. How often do you have a drink containing alcohol?: Never 3. How often do you have six or more drinks on one occasion?: Never Total Score: 0 Score Reviewed/Action Taken: Yes ILYA-7 AMB Questionnaire ILYA-7 Date ILYA - 7 assessed: 10/27/24 Feeling nervous, anxious, or on edge: 0 = Not at all Not being able to stop or control worryin = Not at all Worrying too much about different things: 0 = Not at all Trouble relaxin = Not at all Being so restless that it is hard to sit still: 0 = Not at all Becoming easily annoyed or irritable: 0 = Not at all Feeling afraid as if something awful might happen: 0 = Not at all Total ILYA-7 score (0-4 normal; 5-9 mild; 10-14 moderate; 15-21 severe): 0 Source: Developed by Drs. Otilio Cohn, Noemi Perez, Tej Smith and colleagues, with an educational julissa from [employer]. ILYA-7 Assessment Billing ILYA-7 Assessment Tool: ILYA-7 Assessment 00540 Physical exam (Primary Care) Vital Signs: Last Vital Signs Pulse 93 10/27/24 13:50 BP 122/80 10/27/24 13:50 Pulse Ox 96 10/27/24 13:50 Oxygen Delivery Method Room Air 10/27/24 13:50 BMI result Body Mass Index 24.9 Tobacco/Smoking Status: Tobacco use Status Tobacco use date assessed 10/27/24 10/27/24 13:52 Patient Tobacco Use Status Current everyday Tobacco 10/27/24 13:47 e-Cigarette/Vaping Use Never Used 10/27/24 13:47 Thrive Assessment: Date of Thrive Assessment Date Thrive assessed 10/27/24 10/27/24 13:52 Currently or been in a relationship where the following occur: No concerns reported Coding Level of Care Code Est Pt Level 3 (27201) Diagnoses Rotator cuff insufficiency of left shoulder M25.312 Pain management R52 Additional Codes ILYA-7 Assessment Billing - ILYA-7 Assessment Tool: ILYA-7 Assessment 11565 ([id number]) PHQ-9 - 05491 - PHQ-9 Billing: Yes ([id number]) Assessment & Plan Assessment & Plan (1) Rotator cuff insufficiency of left shoulder: Code(s): M25.312 - Other instability, left shoulder Category: Medical (2) Pain management: Code(s): R52 - Pain, unspecified Category: Medical Plan History - The patient is a 54-year-old female presenting with a need for a medication refill to manage pain associated with shoulder issues. - MRI showed full thickness rotator cuff tear and AC joint osteoarthritis. Left shoulder Patient is having surgery this coming Friday She has labs order for pre up evaluation through orthopedic office Meanwhile I have sent the pain medication for the patient She is aware that after the surgery the pain management will be through orthopedic Problem List - Full Thickness Rotator Cuff Tear - AC Joint Osteoarthritis Patient Instructions - Continue taking pain medication as prescribed until the surgery Medications: Changed From oxycodone-acetaminophen 5-325 mg (Percocet) Partial Fill upon patient request. 1 tab PO BID 15 days PRN 30 tabs 0RF pain To oxycodone-acetaminophen 5-325 mg (Percocet) Partial Fill upon patient request. 1 tab PO Q8H 7 days PRN 20 tabs 0RF pain
[2024-10-27 13:50] VITALS: BP 122/80; PULSE 93; O2SAT 96; BMI 24.9
== END 2024-10-27 14:01 | disposition home or self-care (01) ==
PROVIDERS: PCP Internal Medicine; Visit Provider Internal Medicine
DX: M25.312 Other instability, left shoulder (principal); R52 Pain, unspecified

== ENCOUNTER → 2024-10-27 13:36 | Outpatient (BNVA) | payer BC, OTHER, SELFPAY | PROVIDERS: PCP Internal Medicine; Visit Provider Internal Medicine | DX: M25.312 Other instability, left shoulder (principal); M19.012 Primary osteoarthritis, left shoulder | CPT/HCPCS: 96127; 99212 ==

== ENCOUNTER 2024-11-01 07:27 | Day surgery (SDC) | payer BC, SELFPAY ==
[2024-10-28 12:37] VITALS: BMI 24.9
--- NOTE | 2024-10-28 13:42 | P.CONAN_ITS ---
Documented by User: Gia Kinsey NP 10/28/24 13:43 HPI - Anesthesia Eval Consult details Narrative: 54yo F for Left Shoulder Arthroscopy, distal clavicle excision, acromioplasy, capsular release, manipulation PMFSH Active Problems Active Problems: All Active Problems Impingement syndrome of left shoulder (Acute) Rotator cuff insufficiency of left shoulder (Acute) Left shoulder pain (Acute) Pain management (Acute) Work related injury (Acute) Acute pain of left shoulder (Acute) Thoracic back pain (Acute) Nicotine dependence (Acute) Recurrent sinusitis (Acute) Other specified hypothyroidism (Acute) LFT elevation (Acute) Lipid disorder (Acute) Impaired fasting blood sugar (Acute) Positive depression screening (Acute) Encounter for general adult medical examination with abnormal findings (Acute) Elevated blood pressure reading (Acute) Tired (Acute) Encounter for routine gynecological examination (Acute) Irritable bowel (Acute) Ulcerative colitis (Acute) Past Medical History Medical History Hx MRSA infection Arthritis Thyroid disease Concussion REJI III (cervical intraepithelial neoplasia grade III) with severe dysplasia Hx of LEEP (loop electrosurgical excision procedure) of cervix complicating Hypothyroid High cholesterol Family History Family History Maternal Aunt Breast cancer Father Prostate cancer Surgical History Surgical History H/O colonoscopy Hx of tubal ligation Hx of hernia repair History of back surgery Hx of appendectomy Hx of section Social History Social History Housing: House Are you a primary healthcare consultant to a significant other at home: No Do you presently have visiting nurse or other home services: No Patient Tobacco Use Status: Current everyday Tobacco user Tobacco use type: Cigarette Cigarettes Per Day: 6 e-Cigarette/Vaping Use: Never Used Use of substances other than those prescribed or required for medical reasons: No Have you been hit, kicked, punched, or otherwise hurt by someone within the past year? If so, by whom?: No Are you DNR?: No Advance Directives: No Advance Directives Information Provided: Yes Advance Directives on File: No Recently lost weight without trying: No Eating poorly because of decreased appetite: No Nutrition Risks: No Nutritional Risk Patient : No : No Poor oral hygiene: Yes (full upper and lower dentures) service: No Current occupational status: employed Current occupation: rt handed Cognitive needs: No Hearing needs: No Vision needs: No Meds Allergies Allergy/AdvReac Type Severity Reaction Status Date / Time fluconazole [From Diflucan] Allergy Severe HIVES Verified 11/01/24 08:12 NSAIDS (Non-Steroidal Allergy Severe EDEMA Verified 11/01/24 08:12 Anti-Inflamma [NSAIDS] sulfamethoxazole Allergy Severe ITCHINESS Verified 11/01/24 08:12 [From BACTRIM] trimethoprim [From BACTRIM] Allergy Severe ITCHINESS Verified 11/01/24 08:12 clindamycin [CLINDAMYCIN] Allergy Intermediate RASH Verified 11/01/24 08:12 Clindamycin HCl Allergy Intermediate Rash Uncoded 11/01/24 08:12 From Toradol AdvReac Severe SLOWS HEART Uncoded 11/01/24 08:12 From Vicodin AdvReac Intermediate Nausea Uncoded 11/01/24 08:12 Home Medications ?Medication ?Instructions ?Recorded ?Confirmed ?Last Taken ?Type atorvastatin 40 mg tablet 40 mg PO BEDTIME 10/28/24 11/01/24 Unknown History gabapentin 600 mg tablet 600 mg PO BID 10/28/24 11/01/24 11/01/24 History Exam Height,Weight and Vital Signs: Height 5 ft 6 in Weight 69.853 kg Pertinent Lab Results Pertinent Lab Results: Laboratory Tests 01/03/24 16:31 WBC 6.3 Hgb 14.2 Hct 42.0 Plt Count 218 Sodium 139 Potassium 4.4 Chloride 105 Carbon Dioxide 24 BUN 16 Creatinine 0.78 Assessment and Plan Assessment Anesthesia Assessment: Chart Reviewed Documented by User: Allyssa Ramírez MD 11/01/24 08:42 PMFSH Past Medical History Medical History Hx MRSA infection Arthritis Thyroid disease Concussion REJI III (cervical intraepithelial neoplasia grade III) with severe dysplasia Hx of LEEP (loop electrosurgical excision procedure) of cervix complicating Hypothyroid High cholesterol Family History Family History Maternal Aunt Breast cancer Father Prostate cancer Family history of problems with anesthesia: No Surgical History Surgical History H/O colonoscopy Hx of tubal ligation Hx of hernia repair History of back surgery Hx of appendectomy Hx of section History of Problems with Anesthesia: No Social History Social History Housing: House Are you a primary healthcare consultant to a significant other at home: No Do you presently have visiting nurse or other home services: No Patient Tobacco Use Status: Current everyday Tobacco user Tobacco use type: Cigarette Cigarettes Per Day: 6 e-Cigarette/Vaping Use: Never Used Use of substances other than those prescribed or required for medical reasons: No Have you been hit, kicked, punched, or otherwise hurt by someone within the past year? If so, by whom?: No Are you DNR?: No Advance Directives: No Advance Directives Information Provided: Yes Advance Directives on File: No Recently lost weight without trying: No Eating poorly because of decreased appetite: No Nutrition Risks: No Nutritional Risk Patient : No : No Poor oral hygiene: Yes (full upper and lower dentures) service: No Current occupational status: employed Current occupation: rt handed Cognitive needs: No Hearing needs: No Vision needs: No Meds Allergies Allergy/AdvReac Type Severity Reaction Status Date / Time fluconazole [From Diflucan] Allergy Severe HIVES Verified 11/01/24 08:12 NSAIDS (Non-Steroidal Allergy Severe EDEMA Verified 11/01/24 08:12 Anti-Inflamma [NSAIDS] sulfamethoxazole Allergy Severe ITCHINESS Verified 11/01/24 08:12 [From BACTRIM] trimethoprim [From BACTRIM] Allergy Severe ITCHINESS Verified 11/01/24 08:12 clindamycin [CLINDAMYCIN] Allergy Intermediate RASH Verified 11/01/24 08:12 Clindamycin HCl Allergy Intermediate Rash Uncoded 11/01/24 08:12 From Toradol AdvReac Severe SLOWS HEART Uncoded 11/01/24 08:12 From Vicodin AdvReac Intermediate Nausea Uncoded 11/01/24 08:12 Home Medications ?Medication ?Instructions ?Recorded ?Confirmed ?Last Taken ?Type atorvastatin 40 mg tablet 40 mg PO BEDTIME 10/28/24 11/01/24 Unknown History gabapentin 600 mg tablet 600 mg PO BID 10/28/24 11/01/24 11/01/24 History Exam Airway Mallampati Class: II TM Dist: >3cm Neck ROM: Full Heart: rrr Lungs: cta Assessment and Plan Assessment Anesthesia Assessment: Anesthesia Plan Discussed Final Anesthetic Review Family History of Problems with Anesthesia: No History of Problems with Anesthesia: No NPO: Yes ASA Class: II Final Preanesthetic Review: No Changes in Pt Med Stat, Meds/Allgs Chart Reviewed, Consent Obtained/Reviewed and Anes Risks/Benef Reviewed Patient Risk: Low Procedure Risk: Intermediate Anesthetic Plan Anesthetic Plan: GA and Regional Block Disposition: Standard PACU
[2024-11-01] VITALS (8 sets, daily range): BP systolic 113–144; BP diastolic 71–84; PULSE 79–101; RESP 16; TEMP 36.4–37.1; O2SAT 93–94; BMI 24.7
[2024-11-01] MEDS: Albuterol Sulfate (0.083%) 2.5 MG/3 ML VIAL.NEB INHALE (08:23)
[2024-11-01] MEDS: Lactated Ringers 1,000 ML 100 ML IVCONT (08:44)
--- NOTE | 2024-11-01 10:45 | P.BOP_ITS ---
Brief Operative Note Date of Service: 11/01/24 Pre-op diagnosis: Left shoulder impingement syndrome, left shoulder acromioclavicular joint arthritis, left shoulder adhesive capsulitis Post-op diagnosis: same Procedure: Left shoulder diagnostic arthroscopy with left shoulder arthroscopic distal clavicle excision, left shoulder arthroscopic acromioplasty, left shoulder arthroscopic anterior capsular release, left shoulder manipulation under anesthesia Implants: none Surgeon: Rhett Oropeza MD Anesthesia: GETA and regional Was an Forging Machine Hand used for this Procedure?: No Estimated blood loss (mL): 15 Pathology: none sent Condition: stable Disposition: PACU
--- NOTE | 2024-11-01 10:46 | P.OP_ITS ---
Operative Note Operative Note Date of Service: 11/01/24 Narrative: After the patient was identified as Mary Ann Riggs and her left shoulder was initialed by myself the patient was brought to the holding area where a left shoulder interscalene regional block was performed by the anesthesiologist in routine fashion. The patient was then brought to the operating room where general anesthesia was induced by the anesthesiologist in routine fashion. The patient was given 2 g of IV Ancef preoperatively for infection prophylaxis. Examination under anesthesia of the patient's left shoulder showed decreased range of motion when compared to the right shoulder. The patient's left dimas ulder had forward flexion to 130 degrees compared to 170 degrees, external rotation to 20 degrees compared to 60 degrees, and internal rotation to 40 degrees compared to 50 degrees. The patient was gently positioned in the beach chair position with all bony prominences well padded. The patient's left shoulder region and upper extremity were prepped and draped in sterile fashion. A formal time-out was completed. A #11 scalpel blade was used to make a posterior portal 2 cm inferior and 1 cm medial to the posterolateral corner of the acromion. Blunt trocar technique was used to enter the glenohumeral joint in routine fashion. An anterior portal was made just lateral to the coracoid process after proper positioning was confirmed using a spinal needle. Diagnostic arthroscopy showed minimal degenerative changes of the glenoid and humeral head articular surfaces. There was no evidence of rotator cuff tearing. There was no evidence of injury to the biceps tendon or its insertion onto the glenoid. There was inflammation of the anterior joint capsule consistent with adhesive capsulitis. The ArthroCare Wand was then used to perform an anterior capsular release between the inferior border of the biceps tendon and the superior border of the subscapularis tendon. The arthroscope was then placed from the posterior portal into the subacromial space. A lateral portal was made 2 fingerbreadths lateral to the anterior lateral corner of the acromion. The ArthroCare Wand was used to ablate soft tissues along the undersurface of the acromion as well as to excise the coracoacromial ligament. There was a sharp spur along the undersurface of the acromion which was removed using the hooded bur. The arthroscope was then placed into the lateral portal and the acromioplasty was completed with the bur in the posterior portal using the posterior aspect of the acromion as a cutting block. The ArthroCare Wand was then brought in through the anterior portal and was used to ablate soft tissues along the acromioclavicular joint and distal clavicle. The posterior and superior ligamentous structures were left intact. A distal clavicle excision of 8 mm was performed using the hooded bur. Any remaining bursal tissue was removed using the arthroscopic shaver. The subacromial space was irrigated and then drained. All arthroscopic instruments were removed. A gentle manipulation under anesthesia was then performed. Full passive range of motion was easily attained. The 3 portals were closed with 3-0 nylon interrupted suture. The subacromial space was injected with Marcaine. Dry sterile dressing was placed over all incisions. The patient's left upper extremity was placed into a sling. The patient was awoken and extubated in the operating room. The patient was transferred to the recovery room in stable condition.
[2024-11-01] MEDS: cefTRIAXone sodium 1 GM VIAL IVPUSH (11:14)
== END 2024-11-01 12:12 | disposition home or self-care (01) ==
PROVIDERS: PCP Internal Medicine; Visit Provider Orthopaedic Surgery
PROC: (CPT 29805; principal; 2024-11-01 09:00)
DX: M75.42 Impingement syndrome of left shoulder (principal); M75.02 Adhesive capsulitis of left shoulder; M25.512 Pain in left shoulder; M19.012 Primary osteoarthritis, left shoulder; E78.00 Pure hypercholesterolemia, unspecified; E03.9 Hypothyroidism, unspecified; Z79.899 Other long term (current) drug therapy; Z88.1 Allergy status to other antibiotic agents; Z88.2 Allergy status to sulfonamides; Z88.6 Allergy status to analgesic agent; Z88.5 Allergy status to narcotic agent; F17.210 Nicotine dependence, cigarettes, uncomplicated; Z98.890 Other specified postprocedural states
CPT/HCPCS: 29824; 29825; 29826; J0131; J0171; J0665; J0690; J0696; J1100; J2003; J2250; J2405; J2704; J2795; J3010

== ENCOUNTER → 2024-11-01 07:27 | Outpatient (BNV) | payer BC, SELFPAY | PROVIDERS: PCP Internal Medicine; Visit Provider Orthopaedic Surgery | DX: M75.42 Impingement syndrome of left shoulder (principal); M19.012 Primary osteoarthritis, left shoulder; M75.02 Adhesive capsulitis of left shoulder | CPT/HCPCS: 29824; 29826 ==

== ENCOUNTER 2024-11-16 11:26 | Outpatient (AMB) | payer OTHER, BC, SELFPAY ==
--- NOTE | 2024-11-16 11:28 | A.OFFVIS_ITS ---
Intake Visit Reasons: PO LT shoulder 11/01/24 DR Intake Note: Mary Ann is a 54 year old right hand dominant female who presents today post- operatively after undergoing left shoulder arthroscopic surgery on 11/01/24. She reports mild to moderate discomfort in her left shoulder. She has been doing gentle stretching exercises. She does not wish to go to formal physical therapy. She has been taking oxycodone which gives her fairly good relief. Allergies fluconazole [From Diflucan] Allergy (Severe, Verified 11/16/24 11:38) HIVES NSAIDS (Non-Steroidal Anti-Inflamma [NSAIDS] Allergy (Severe, Verified 11/16/24 11:38) EDEMA sulfamethoxazole [From BACTRIM] Allergy (Severe, Verified 11/16/24 11:38) ITCHINESS trimethoprim [From BACTRIM] Allergy (Severe, Verified 11/16/24 11:38) ITCHINESS clindamycin [CLINDAMYCIN] Allergy (Intermediate, Verified 11/16/24 11:38) RASH Clindamycin HCl Allergy (Intermediate, Uncoded 11/16/24 11:38) Rash From Toradol Adverse Reaction (Severe, Uncoded 11/16/24 11:38) SLOWS HEART From Vicodin Adverse Reaction (Intermediate, Uncoded 11/16/24 11:38) Nausea Medication List - Last Reconciled 11/16/24 by Rhett Oropeza MD atorvastatin 40 mg PO BEDTIME gabapentin 600 mg PO BID levothyroxine 125 mcg PO DAILY oxycodone 10 mg (2 x 5 mg) PO Q4H PRN oxycodone-acetaminophen 5-325 mg (Percocet) 1 tab PO Q8H PRN 7 days PFSH Medical History Hx MRSA infection Arthritis Thyroid disease Concussion REJI III (cervical intraepithelial neoplasia grade III) with severe dysplasia Hx of LEEP (loop electrosurgical excision procedure) of cervix complicating pr egnancy Hypothyroid High cholesterol Surgical History H/O colonoscopy Hx of tubal ligation Hx of hernia repair History of back surgery Hx of appendectomy Hx of section Family History Maternal Aunt Breast cancer Father Prostate cancer Social History Housing: House Are you a primary resident caregiver to a significant other at home: No Do you presently have visiting nurse or other home services: No Patient Tobacco Use Status: Current everyday Tobacco user Tobacco use type: Cigarette Cigarettes Per Day: 6 e-Cigarette/Vaping Use: Never Used service: No Current occupational status: employed Current occupation: rt handed Cognitive needs: No Hearing needs: No Vision needs: No Female Reproductive History Menstrual Age of Menarche: 15 Physical Exam Extrem Other: Left shoulder examination shows that the surgical incisions are healing well, no erythema, mild to moderate discomfort with range of motion, no instability Assessment & Plan Assessment & Plan (1) Impingement syndrome of left shoulder: Code(s): M75.42 - Impingement syndrome of left shoulder Category: Medical Plan Ms. Riggs is doing well after undergoing left shoulder surgery on 11/01/2024. Her sutures were removed and Steri-Strips placed over her incisions. She does not wish to go to formal physical therapy. She will continue with her stretching program. I will keep her out of work until her pain and strength and range of motion have improved. I will see her back in 2 months' time for repeat clinical examination. Feel free to call me at any time should questions regarding her orthopedic management arise. I spent 22 minutes in reviewing the patient's records and imaging studies, seeing the patient and documenting in the medical record. Medications: Refilled oxycodone Partial Fill upon patient request. Take 1-2 tabs every 4 hours as needed for pain 10 mg (2 x 5 mg) PO Q4H PRN 40 tabs 0RF pain Coding Level of Care Code Global (82493) Diagnoses Impingement syndrome of left shoulder M75.42
== END 2024-11-16 11:57 | disposition home or self-care (01) ==
PROVIDERS: PCP Internal Medicine; Visit Provider Orthopaedic Surgery
DX: M75.42 Impingement syndrome of left shoulder (principal)
CPT/HCPCS: 99024

== ENCOUNTER → 2024-11-16 11:26 | Outpatient (BNVA) | payer OTHER, SELFPAY | PROVIDERS: PCP Internal Medicine; Visit Provider Orthopaedic Surgery | DX: Z47.89 Encounter for other orthopedic aftercare (principal); Z98.890 Other specified postprocedural states | CPT/HCPCS: 99212 ==

== ENCOUNTER 2025-01-19 11:19 | Outpatient (AMB) | payer OTHER, SELFPAY ==
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
[2025-01-19 11:27] VITALS: BMI 24.7
== END 2025-01-19 11:36 | disposition home or self-care (01) ==
PROVIDERS: PCP Internal Medicine; Visit Provider Orthopaedic Surgery
DX: M25.512 Pain in left shoulder (principal)
CPT/HCPCS: 99024

== ENCOUNTER → 2025-01-19 11:19 | Outpatient (BNVA) | payer OTHER, SELFPAY | PROVIDERS: PCP Internal Medicine; Visit Provider Orthopaedic Surgery | DX: M25.512 Pain in left shoulder (principal) | CPT/HCPCS: 99212 ==

== ENCOUNTER 2025-01-28 12:11 | Outpatient (AMB) | payer OTHER, SELFPAY ==
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
[2025-01-28 12:15] VITALS: BP 118/80; PULSE 103; RESP 16; TEMP 36.7; O2SAT 96; BMI 23.8
== END 2025-01-28 12:36 | disposition home or self-care (01) ==
LOC: HO.HMCC 12:12
PROVIDERS: PCP Internal Medicine; Visit Provider Internal Medicine
DX: M25.561 Pain in right knee (principal); V89.2XXA Person injured in unspecified motor-vehicle accident, traffic, initial encounter; M25.512 Pain in left shoulder; Z04.3 Encounter for examination and observation following other accident

== ENCOUNTER → 2025-01-28 12:11 | Outpatient (BNVA) | payer OTHER, SELFPAY | PROVIDERS: PCP Internal Medicine; Visit Provider Internal Medicine | DX: M25.561 Pain in right knee (principal); M25.512 Pain in left shoulder; V49.49XA Driver injured in collision with other motor vehicles in traffic accident, initial encounter; Y93.9 Activity, unspecified; Y92.9 Unspecified place or not applicable; Y99.9 Unspecified external cause status | CPT/HCPCS: 96127 ==

== ENCOUNTER 2025-02-11 14:19 | Outpatient (REF) | payer OTHER, SELFPAY ==
--- NOTE | ~2025-02-11 | XR_ITS ---
EXAMINATION: XR KNEE, RIGHT CLINICAL INFORMATION: M25.561 - Pain in right knee COMPARISON: None available. TECHNIQUE: Four views of the right knee. FINDINGS: No fracture, dislocation, or suspicious bone lesion. Normal bone mineralization. Normal alignment. Mild medial compartment joint space narrowing. Joint spaces otherwise preserved. There is a prominent suprapatellar joint effusion. Soft tissues appear normal. XR/XR knee RT 2V IMPRESSION: 1. No acute bony abnormalities of the right knee. 2. Mild medial compartment joint space narrowing. 3. Prominent suprapatellar joint effusion Electronically signed by: Pierre Grove MD 02/11/2025 04:11 PM EDT
== END 2025-02-11 14:20 | disposition home or self-care (01) ==
LOC: HO.HMGCX 14:19
PROVIDERS: PCP Internal Medicine; Visit Provider Internal Medicine
DX: M25.561 Pain in right knee (principal); V89.2XXA Person injured in unspecified motor-vehicle accident, traffic, initial encounter
CPT/HCPCS: 73560

== ENCOUNTER 2025-02-11 14:19 | Outpatient (AMB) | payer OTHER, SELFPAY ==
[2025-02-11 14:21] VITALS: BP 132/86; PULSE 107; TEMP 36.6; O2SAT 96; BMI 23.8
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
== END 2025-02-11 14:45 | disposition home or self-care (01) ==
LOC: HO.HMCC 14:20
PROVIDERS: PCP Internal Medicine; Visit Provider Internal Medicine
DX: M25.561 Pain in right knee (principal); S89.91XA Unspecified injury of right lower leg, initial encounter; M25.461 Effusion, right knee; Z04.3 Encounter for examination and observation following other accident; V89.2XXA Person injured in unspecified motor-vehicle accident, traffic, initial encounter

== ENCOUNTER → 2025-02-11 15:01 | Outpatient (BNV) | payer OTHER, SELFPAY | PROVIDERS: PCP Internal Medicine; Visit Provider Radiology Diagnostic Radiology | DX: M25.461 Effusion, right knee (principal) | CPT/HCPCS: 73560 ==

== ENCOUNTER 2025-03-08 07:53 | Outpatient (REF) | payer OTHER, SELFPAY ==
--- OUTSIDE RECORDS SUMMARY | 2025-03-08 07:56 | XMS_ITS | Clinical Summary ---
Author Organization [facility] Address [address] [facility] [address] [place] [phone] Phone Care Team Providers Care Care Asst Name Role Phone Naina Garcias MD Primary Care Provider Allergies Active Allergy Reactions Criticality Noted Date Comments Clindamycin Hcl 02/12/2019 Fluconazole 02/12/2019 Ibuprofen 02/12/2019 irrtates stomach and IBS Tramadol 02/12/2019 Heart racing Medications acetaminophen (TYLENOL) 325 mg tablet Take 2 tablets (650 mg total) by mouth every 6 (six) hours as needed. 40 tablet 04/04/2019 Active Social History Tobacco Use Types Packs/Day Years Used Date Smoking Tobacco: Every Day Cigarettes Smokeless Tobacco: Never Alcohol Use Standard Drinks/Week Comments Never 0 (1 standard drink = 0.6 oz pur e alcohol) Education Answer Date Recorded Are you interested in more education? Not on nadeem e 05/24/2024 Are you concerned about learning? Not on file 05/24/2024 No 05/24/2024 No 05/24/2024 Digital Access Answer Date Recorded No 05/24/2024 No 05/24/2024 Reliable internet access at home? Not on file 05/24/2024 Device with a working camera? Not on file Intimate Partner Violence Answer Date R ecorded Are you denied basic needs s uch as food, clothing, or medical care? No 05/24/2024 In the past 12 months have y ou been in a relationship with a person who hurts, threatens, or tries to control you? No 05/24/2024 Are you denied basic needs s uch as food, clothing, or medical care? No 05/24/2024 In the past 12 months have y ou been in a relationship with a person who hurts, threatens, or tries to control you? No 05/24/2024 Comments Unknown Sex and Gender Information Value Date Recorded Sex Assigned at Female 02/12/2019 1:08 PM EDT Legal Sex Female 9:37 PM EDT Gender Identity Female 02/12/2019 1:08 PM EDT Sexual Orientation Bisexual 02/12/2019 1: 08 PM EDT Last Filed Vital Signs Vital Sign Reading Time Taken Comments Blood Pressure 113/79 05/24/2024 6:48 PM EDT Pulse 62 05/24/2024 6:48 PM EDT Temperature 36.2 C (97.2 F) 05/24/2024 6:48 PM EDT Respiratory Rate 16 05/24/2024 6:48 PM EDT Oxygen Saturation 100% 05/24/2024 6:48 PM EDT Inhaled Oxygen Concentration - - Weight 66.7 kg (147 lb) 05/24/2024 2:38 PM EDT Height 167.6 cm (5' 6 ) 05/24/2024 3:28 PM EDT Body Mass Index 23.73 05/24/2024 2:38 PM EDT Plan of Treatment Health Maintenance Due Date Last Done Comments LIPID PANEL 1968 DEPRESSION SCREENING 1980 SMOKING Hx and SMOKELESS TOB ACCO SCREENING 1981 HEPATITIS C SCREENING 1986 HIV ONE-TIME SCREENING (18-6 5 YEARS) 1986 PNEUMOCOCCAL VACCINES (50+ y ears) (1 of 2 - PCV) 1987 PAP SMEAR 1989 MAMMOGRAM 2008 COLOGUARD 2013 COLONOSCOPY 2013 COLORECTAL CANCER SCREENING 2013 FIT TEST 2013 FOBT 2013 SIGMOIDOSCOPY 2013 VIRTUAL COLONOSCOPY 2013 ZOSTER VACCINES (1 of 2) 2018 COVID-19 VACCINE ( - 2023-2 5 season) 2024 Adult Td,Tdap Booster 05/18/2024 05/18/2014 HEPATITIS A VACCINES Aged Out No long er eligible based on patient's age to complete this topic HIB VACCINES Aged Out No longer eligi ble based on patient's age to complete this topic MENINGOCOCCAL VACCINES (ACWY) Aged Out No longer eligible based on patient's age to complete this topic MENINGOCOCCAL VACCINES (B) Aged Out N o longer eligible based on patient's age to complete this topic Medical Devices Not on file Insurance [employer] PPO PPO EPO [employer] PPO Member Subscriber Plan / Payer (Ef fective 2018-Present) Name:Mary Ann Riggs Relation to Subscriber:Self Name:Mary Ann Riggs Payer ID:[id number] (NAIC) Type:PPO Address: [facility] [id number] PPO EPO [address] [place] [address] PPO [facility] PPO [facility] PPO PPO EPO [facility] PPO [facility] PPO Member Subscriber Plan / Payer (Ef fective 2018-Present) Name:Mary Ann Riggs Relation to Subscriber:Self Name:Mary Ann Riggs Payer ID:[id number] (NAIC) Type:PPO Address: [address] PPO EPO PPO Member Subscriber Plan / Payer (Ef fective 2018-Present) Name:Mary Ann Riggs Relation to Subscriber:Self Name:Mary Ann Riggs Payer ID:[id number] ([facility]) Type:PPO Address: [facility] [id number] PPO EPO PPO [facility] PPO EPO Care Teams Care Asst Relationship Specialty Start Date End Date Naina Garcias MD [address] [facility] [place] [address] PCP - General Internal Medicine 05/24/24 Additional Source Comments The information contained in this document represents components of the legal health record. It is not the complete legal health record.[facility]
[2025-03-08 10:25] LABS: MANUAL DIFF FLAG NO
[2025-03-08 10:29] LABS: Hematocrit 40.4 % (37.0-47.0); Hemoglobin 13.5 g/dl (12.0-16.0); Imm Gran Abs Auto 0.01 X10*3/uL (0.00-0.03); Imm Gran Pct Auto 0.2 % (0.0-0.4); Lymphocytes Absolute Auto 2.0 X10*3/uL (1.2-4.9); Mean Corpuscular HGB Conc 33.4 g/dl (31.0-35.0); Mean Corpuscular Hemoglobin 30.2 pg (27.0-33.0); Mean Corpuscular Volume 90.4 fL (80.0-98.0); NRBC Abs Auto 0.000 X10*3/uL (0.0-0.012); NRBC Pct Auto 0.0 /100WBC (0.0-0.2); Platelet Count 242 X10*3/uL (160-400); Red Blood Count 4.47 X10*6/uL (4.20-5.50); White Blood Count 5.5 X10*3/uL (4.8-10.8)
[2025-03-08 11:02] LABS: Alanine Aminotransferase 29 U/L (0-31); Albumin Level 4.6 g/dL (3.5-5.0); Alkaline Phosphatase 102 U/L (39-117); Anion Gap 11 (12-20); Aspartate Amino Transferase 25 U/L (5-31); Blood Urea Nitrogen 12 mg/dL (9-16); Calcium 9.3 mg/dL (8.4-10.2); Carbon Dioxide 28 mmol/L (22-29); Chloride 106 mmol/L (96-108); Cholesterol 126 mg/dL (<200); Estimated Glomerular Filt Rate > 60; HDL Cholesterol 27 mg/dL (>40); Potassium 4.3 mmol/L (3.3-5.1); Sodium 141 mmol/L (135-145); Total Protein 8.0 g/dL (6.5-8.0); Triglycerides 187 mg/dL (<150)
[2025-03-08 11:53] LABS: Free T4 (Free Thyroxine) 1.22 ng/dL (0.71-1.85)
== END 2025-03-08 07:54 | disposition home or self-care (01) ==
LOC: HO.HMGCLDS 07:53
PROVIDERS: PCP Internal Medicine; Visit Provider Internal Medicine
DX: R73.01 Impaired fasting glucose (principal); E03.8 Other specified hypothyroidism; R79.89 Other specified abnormal findings of blood chemistry; E78.9 Disorder of lipoprotein metabolism, unspecified
CPT/HCPCS: 36415; 80053; 80061; 84439; 84443; 85025

== ENCOUNTER 2025-03-09 11:59 | Outpatient (AMB) | payer OTHER, SELFPAY ==
[2025-03-09 12:02] VITALS: BP 134/82; PULSE 96; RESP 18; TEMP 36.8; O2SAT 96; BMI 23.7
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
--- OUTSIDE RECORDS SUMMARY | 2025-03-09 12:41 | XMS_ITS | Clinical Summary ---
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 [address] [facility] PPO PPO EPO [facility] PPO 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 It is not the complete legal health record.[facility]
== END 2025-03-09 13:22 | disposition home or self-care (01) ==
PROVIDERS: PCP Internal Medicine; Visit Provider Internal Medicine
DX: M25.561 Pain in right knee (principal); V89.2XXA Person injured in unspecified motor-vehicle accident, traffic, initial encounter; S89.91XD Unspecified injury of right lower leg, subsequent encounter; Z04.3 Encounter for examination and observation following other accident; M25.461 Effusion, right knee

== ENCOUNTER → 2025-03-09 11:59 | Outpatient (BNVA) | payer OTHER, SELFPAY | PROVIDERS: PCP Internal Medicine; Visit Provider Internal Medicine | DX: M25.561 Pain in right knee (principal); E03.8 Other specified hypothyroidism; R73.01 Impaired fasting glucose; E78.9 Disorder of lipoprotein metabolism, unspecified; S89.91XD Unspecified injury of right lower leg, subsequent encounter; V89.2XXD Person injured in unspecified motor-vehicle accident, traffic, subsequent encounter; M25.461 Effusion, right knee | CPT/HCPCS: 96127; 99212 ==

== ENCOUNTER 2025-03-09 12:44 | Outpatient (AMB) | payer OTHER, SELFPAY ==
[2025-03-09 12:50] VITALS: BP 134/82; PULSE 96; TEMP 36.8; O2SAT 96; BMI 23.7
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
== END 2025-03-09 13:22 | disposition home or self-care (01) ==
LOC: HO.HMCC 12:44
PROVIDERS: PCP Internal Medicine; Visit Provider Internal Medicine
DX: E03.8 Other specified hypothyroidism (principal); R73.01 Impaired fasting glucose; E78.9 Disorder of lipoprotein metabolism, unspecified

== ENCOUNTER 2025-03-10 11:32 | Outpatient (AMB) | payer OTHER, SELFPAY ==
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
[2025-03-10 11:39] VITALS: BMI 23.7
--- OUTSIDE RECORDS SUMMARY | 2025-03-10 12:26 | XMS_ITS | Clinical Summary ---
Author Organization [facility] Address [address] [place] [id number] Phone Care Team Providers Care Senior Project Architect Name Role Phone Naina Garcias MD Primary Care Provider [phone] Allergies Active Allergy Reactions Criticality Noted Date [...] topic Medical Devices Not on file Insurance [facility] PPO PPO EPO [facility] PPO Member Subscriber Plan / Payer (Ef fective 2018-Present) Name:Mary Ann Riggs Relation to Subscriber:Self Name:Mary Ann Riggs Payer ID:[id number] (NAIC) Type:PPO Address: [facility] [id number] [place] [address] [address] PPO [facility] PPO [facility] PPO PPO EPO [facility] PPO [facility] PPO Member Subscriber Plan / Payer (Ef fective 2018-Present) Name:Mary Ann Riggs Relation to Subscriber:Self Name:Mary Ann Riggs Payer ID:[id number] (NAIC) Type:PPO Address: [address] PPO EPO PPO Member Subscriber Plan / Payer (Ef fective 2018-Present) Name:Mary Ann Riggs Relation to Subscriber:Self Name:Mary Ann Riggs Payer ID:[id number] ([facility]) Type:PPO Address: [facility] [id number] PPO EPO PPO [employer] PPO EPO Care Teams Senior Project Architect Relationship Specialty Start Date End Date Naina Garcias MD [address] [facility] [place] [id number] PCP - General Internal Medicine 05/24/24 Additional Source Comments The information contained in this document represents components of the legal health record. It is not the complete legal health record.[facility]
== END 2025-03-10 11:52 | disposition home or self-care (01) ==
LOC: HO.HOS 11:33
PROVIDERS: PCP Internal Medicine; Visit Provider Orthopaedic Surgery
DX: S83.241A Other tear of medial meniscus, current injury, right knee, initial encounter (principal)
CPT/HCPCS: 99213; G2211

== ENCOUNTER 2025-03-24 18:59 | Outpatient (REF) | payer OTHER, SELFPAY ==
--- NOTE | ~2025-03-24 | MR_ITS ---
EXAMINATION: MR KNEE WITHOUT CONTRAST, RIGHT CLINICAL INFORMATION: Tear of medial meniscus. Injury. Pain and swelling. COMPARISON: Correlated to x-ray dated February 11, 2025. TECHNIQUE: MRI of the knee without contrast was performed using routine sequences on a high-field scanner. FINDINGS: MENISCI: Medial Meniscus: Intrasubstance signal abnormality involving the entire posterior horn without clear extension to the articular surface. Lateral Meniscus: Intact LIGAMENTS: Cruciate: Mild intrasubstance signal in the anterior cruciate ligament. Posterior cruciate ligament is intact. Collateral: There is thinning in the lateral collateral ligament. The medial collateral ligament appears intact. EXTENSOR MECHANISM: Intact ARTICULAR CARTILAGE/BONE: Patellofemoral Compartment: Screening of the patellofemoral cartilage, medially. Subtle bone marrow signal in the anterior and medial aspect of the medial tibial plateau as well as in the posterior aspect of the lateral tibial plateau. Subtle bone marrow signal in medial femoral condyle. Medial Compartment: Narrowing/decreased Lateral Compartment: Normal JOINT FLUID AND BURSAE: There is a large amount of fluid extending into the suprapatellar bursa. There is a 2.7 cm bilobed popliteal cyst. There is soft tissue edema pattern extending from the prepatellar to the medial and lateral aspect of the knee and to the posterior lateral aspect of the leg. MR/MR knee RT wo con IMPRESSION: Posterior horn medial meniscal tear. Large volume joint effusion. Mild ACL injury. Bone contusions, tibial plateau and medial femoral condyle. 2.7 cm bilobed popliteal cyst. Soft tissue edema. Electronically signed by: Bong Yeboah MD 03/25/2025 08:08 AM EDT
== END 2025-03-24 19:00 | disposition home or self-care (01) ==
LOC: HO.MRI 18:59
PROVIDERS: PCP Internal Medicine; Visit Provider Orthopaedic Surgery
DX: S83.241A Other tear of medial meniscus, current injury, right knee, initial encounter (principal)
CPT/HCPCS: 73721

== ENCOUNTER → 2025-03-24 19:04 | Outpatient (BNV) | payer OTHER, SELFPAY | PROVIDERS: PCP Internal Medicine; Visit Provider Radiology Diagnostic Radiology | DX: S83.241A Other tear of medial meniscus, current injury, right knee, initial encounter (principal) | CPT/HCPCS: 73721 ==

== ENCOUNTER 2025-04-14 14:03 | Outpatient (AMB) | payer OTHER, SELFPAY ==
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
[2025-04-14 14:12] VITALS: BMI 23.9
--- OUTSIDE RECORDS SUMMARY | 2025-04-14 14:51 | XMS_ITS | Clinical Summary ---
Author Organization [facility] Address [address] [place] [id number] Phone Care Team Providers Care Medical Translator Name Role Phone Naina Garcias MD Primary Care Provider [phone] Allergies Active Allergy Reactions Criticality Noted Date [...] topic Medical Devices Not on file Insurance [facility] P[employer] PPO EPO [facility] PPO Member Subscriber Plan / Payer (Ef fective 2018-Present) Name:Mary Ann Riggs Relation to Subscriber:Self Name:Mary Ann Riggs Payer ID:[id number] (NAIC) Type:PPO Address: [facility] [id number] [place] [address] PPO [facility] PPO [facility] PPO PPO EPO [facility] PPO [facility] PPO Member Subscriber Plan / Payer (Ef fective 2018-Present) Name:Mary Ann Riggs Relation to Subscriber:Self Name:Mary Ann Riggs Payer ID:[id number] (NAIC) Type:PPO Address: [address] PPO EPO PPO Member Subscriber Plan / Payer (Ef fective 2018-Present) Name:Mary Ann Riggs Relation to Subscriber:Self Name:Mary Ann Riggs Payer ID:[id number] ([facility]) Type:PPO Address: [facility] [id number] PPO EPO PPO [facility] PPO EPO Care Teams Medical Translator Relationship Specialty Start Date End Date Naina Garcias MD [address] [facility] [place] [address] PCP - General Internal Medicine 05/24/24 Additional Source Comments The information contained in this document represents components of the legal health record. It is not the complete legal health record.[facility]
== END 2025-04-14 14:21 | disposition home or self-care (01) ==
LOC: HO.HOS 14:04
PROVIDERS: PCP Internal Medicine; Visit Provider Orthopaedic Surgery
DX: M17.11 Unilateral primary osteoarthritis, right knee (principal)
CPT/HCPCS: 99213; G2211